=== PATIENT | male | born 1975 | race Caucasian/White ===

== ENCOUNTER 2016-07-04 14:10 | Inpatient (IN) | payer OTHER ==
[~2016-07-04] VITALS: Ht 180.3 cm; Wt 74.4 kg
[~2016-07-04 14:10] MED LIST: BACTROBAN2% TOP; VIBRAMYCIN 100100 MG PO
--- NOTE | 2016-07-04 14:29 | ED AMS/SEIZURE/WEAK/DIZZY ---
History of Present Illness General Chief Complaint: Seizure Stated Complaint: SEIZURE Source: patient Exam Limitations: confusion Vital Signs & Intake/Output Vital Signs & Intake/Output Vital Signs Date Time Temp Pulse Resp B/P Pulse O2 O2 Flow FiO2 Ox Delivery Rate 07/04 1709 101.3 07/04 1704 101.3 83 20 130/81 97 Room Air 07/04 1452 98 Room Air Room Air 07/04 1429 97.8 80 16 147/80 98 Room Air Room Air Allergies Coded Allergies: NO KNOWN ALLERGIES (02/20/15) Reconcile Medications Buspirone HCl 15 MG TABLET 1 TAB PO BID ANXIETY (Reported) Doxycycline (Vibramycin 100 MG Cap) 100 MG CAP 1 CAP PO BID cellulitis Escitalopram Oxalate 20 MG TABLET 1 TAB PO DAILY ANTIDEPRSANT (Reported) Gabapentin 300 MG CAPSULE 1 CAP PO TID NERVE PAIN (Reported) Methadone HCl 5 MG TABLET 140 MG PO D PAIN (Reported) Mupirocin (Bactroban) 2% OIN 1 BERT TOP TID cellulitis Triage Note: PT BIBA AFTER HAVING A SEIZURE. PT WAS WITH SIGNIFICANT OTHER WHEN IT HAPPENED. EMS STATES HE FELL BACKWARDS HITTING THE BACK OF HIS HEAD ON SHELF. PER SIG OTHER HE HAS HAD 3-4 PRIOR SEIZURES TODAY. PT HAS BEEN VOMITING FOR THE PAST COUPLE DAYS. PT HAS BRUISES IN DIFFERENT STAGES OF HEALING ON HIS RIGHT FLANK AND ARM AND ABRASIONS TO HIS LEFT FOREHEAD AND LEFT SIDE OF NECK. NO C-SPINE TENDERNESS. PT IS CURRENTLY A VERY POOR HISTORIAN, PER EMS SIG OTHER GAVE MOST TO ALL OF HX, BUT ARE UNSURE OF HIS BASELINE DUE TO PAST TBI. PT KNOWS WHERE HE IS, BUT THINKS IT IS OCTOB[place], WHEN ASKED ABOUT COMING UP HOLIDAY HE SAID OCTOBER AGAIN. PT SKIN WARM AND DRY. SINUS ON MONITOR AND AWAITNG PROVIDER EVAL. Triage Nurses Notes Reviewed? yes Onset: Abrupt Duration: better Timing: recent history Severity: moderate Severity Numbers: 5 HPI: Patient is a 40-year-old female with past medical history of anxiety depression mood disorder and seizures where he states that he is prescribed alprazolam for his seizures where he states that within the last 24 hours he had a seizure earlier this morning when he states that he fell and struck the left lateral aspect of his neck to the ground after waking up from seizure where he's had left lateral neck pain since patient also had a witnessed seizure by his brother and his private residence in which he struck his head to the ground resulting in a skin abrasion to his left forehead. History is limited due to patient presenting to be confused. Patient is alert and oriented however Denies any illicit drug use initially however he does state that 3 weeks ago he did smoke marijuana. Patient is compliant with his medications. Denies any alcohol use. Complaints of headache and neck pain Denies any bowel or bladder incontinence or tongue biting Denies any fever chills cough shortness of breath chest pain abdominal pain or low back pain (REESE MONTANEZ) Past History Medical History Any Pertinent Medical History? see below for history Neurological: SEIZURES Psychiatric: anxiety, CHRONIC PAIN Surgical History Surgical History: non-contributory Psychosocial History What is your primary language Divehi Family History Hx Contributory? No (REESE MONTANEZ) Review of Systems Review of Systems Constitutional: Reports: no symptoms. EENTM: Reports: no symptoms. Respiratory: Reports: no symptoms. Cardiovascular: Reports: no symptoms. GI: Reports: no symptoms. Genitourinary: Reports: no symptoms. Musculoskeletal: Reports: see HPI, neck pain. Skin: Reports: see HPI. Neurological/Psychological: Reports: see HPI. Hematologic/Endocrine: Reports: no symptoms. Immunologic/Allergic: Reports: no symptoms. All Other Systems: Reviewed and Negative (REESE MONTANEZ) Physical Exam Physical Exam General Appearance: no apparent distress, comfortable Head: evidence of injury Comments: Well-developed well-nourished person in no acute distress HEENT: Normal EENT exam, extraocular motion intact, no nystagmus. Pupils equally round and reactive to light and accommodation. Nose is atraumatic. External auditory canal and Tympanic membranes clear. Pharynx normal. No swelling or edema. Neck: Supple, no lymphadenopathy, normal range of motion without pain or tenderness Back: Nontender, no CVA tenderness. Cardiovascular: Regular rate and rhythms no murmurs rubs or gallops, normal JVP Respiratory: Chest nontender. No respiratory distress.breath sounds clear to auscultation bilaterally Abdomen: Soft, nontender nondistended, no appreciable organomegaly. Normal bowel sounds. No ascites Extremity: No edema, no calf tenderness to palpation, normal and equal pulses. Neuro: Alert oriented x3, motor sensory normal, cranial nerves II through XII grossly intact. Skin: No appreciable rash on exposed skin, skin is warm and dry. Psych: Mood and affect is normal, memory and judgment is normal. Diagram Body: 1) Noted 3 cm superficial skin abrasion 2) Noted superficial 4 cm skin abrasion Core Measures ACS in differential dx? No CVA/TIA Diagnosis: No Severe Sepsis Present: Yes BC x2: Yes Lactic Acid x2: Yes IV ABX Broad Spectrum: Yes NS/LR Started: Yes Septic Shock Present: No (ALE LOMBARDI,REESE) Progress Differential Diagnosis: arrythmia, alcohol intoxication, anemia, benign positional vertigo, CVA/stroke, dehydration, drug intoxication, encephalitis, electrolyte imbalance, GI bleed, hypoglycemia, hypoxia, intracranial Hem., intracranial mass/tumor, labrynthitis, meningitis, Meniere's disease, migraine SEN, multiple sclerosis, pneumonia, postural hypotension, presyncope, post- traumatic vertigo, sepsis, seizure disorder, subarachnoid Hem., UTI/pyelo, vertebrobasilar insuff Diagnostic Imaging: Viewed by Me: CT Scan, Ultrasound. Radiology Impression: no acute abnormality Initial ED EKG: SINUS RHYTHM NOTED 89 BPM WITH NOTED SUSPECTING u WAVE Prior EKG: changed Comments: PATIENT: REESE LEVINE PRESENT AGE: 40 PATIENT ACCOUNT NO: [id number] : 77 LOCATION: ER ORDERING PHYSICIAN: REESE LOMBARDI SERVICE DATE: 07/04/16 EXAM TYPE: RAD - XRY-PORTABLE CHEST XRAY EXAMINATION: XR PORTABLE CHEST CLINICAL INFORMATION: Elevated troponin. COMPARISON: Chest x-ray 08/03/2005. TECHNIQUE: Portable AP view of the chest was obtained. FINDINGS: The lung ayala are well expanded bilaterally. There is a 2 mm density projected over the posterior left ninth rib which is nonspecific. It may be a small foreign body over the chest; the patient has a history of concurrent trauma. The cardiac silhouette is normal. There are no pleural effusions or pneumothorax. The central pulmonary vasculature is normal. The hilar regions appear normal. There is a mild dextroscoliosis of the thoracic spine. IMPRESSION: 1. There are no acute cardiopulmonary findings. PATIENT: REESE LEVINE PRESENT AGE: 40 PATIENT ACCOUNT NO: [id number] : 77 LOCATION: ER ORDERING PHYSICIAN: REESE LOMBARDI SERVICE DATE: 07/04/16 EXAM TYPE: CAT - CT CERV SPINE WO IV CONTRAST; CT HEAD WO IV CONTRAST EXAMINATION: CT HEAD WITHOUT CONTRAST CT CERVICAL SPINE WITHOUT CONTRAST CLINICAL INFORMATION: Head strike. Neck pain. Fall. COMPARISON: CT head 10/26/2007 TECHNIQUE: Imaging was performed from the skull base to vertex without intravenous administration of contrast. In addition, helical noncontrast CT imaging was acquired through the cervical spine and source images were reviewed along with axial reconstructions and sagittal and coronal MPRs. DLP: 999.06 mGy-cm FINDINGS: HEAD: Focal encephalomalacia in the right frontal lobe with prior craniotomy the right frontal bone. This is stable since the CT head 10/26/2007. No intracranial mass, hemorrhage, or midline shift is visualized. The ventricles and sulci are age-appropriate. No extra-axial collections are identified. The paranasal sinuses and mastoid air cells are well aerated. CERVICAL SPINE: There is no evidence of acute cervical spine fracture. Vertebral bodies remain normal in height, intervertebral disc spaces are preserved, and alignment is anatomic. No pre- or paravertebral soft tissue abnormality is identified. Limited assessment of the lung apices is unremarkable. IMPRESSION: 1. No acute intracranial pathology. 2. No CT evidence of acute cervical spine fracture or traumatic subluxation DICTATED BY: OLIVIA KENDRICK MD DATE/TIME DICTATED:07/04/161543 BOILER OPERATOR:INGE DATE/TIME TRANSCRIBED:07/04/161543 PATIENT: REESE LEVINE PRESENT AGE: 40 PATIENT ACCOUNT NO: [id number] : 77 LOCATION: [facility] ORDERING PHYSICIAN: REESE LOMBARDI SERVICE DATE: 07/04/16 EXAM TYPE: US - US-LIMITED ABDOMEN EXAMINATION: US ABDOMEN LIMITED CLINICAL INFORMATION: Right upper quadrant pain. Elevated LFTs, bilirubin. COMPARISON: CT scan abdomen pelvis 04/30/2009 TECHNIQUE: Real-time imaging of the right upper quadrant abdominal viscera. Color Doppler exam utilized. FINDINGS: PANCREAS: Normal. LIVER: There is diffuse increased echogenicity of liver parenchyma consistent with fatty change. Right lobe of liver measures 18 cm superior inferior, mildly enlarged. No focal liver lesion. No intrahepatic bile duct dilatation. GALLBLADDER: Normal. The gallbladder is physiologically distended without evidence of stones, sludge, polyps, wall thickening or pericholecystic fluid. COMMON BILE DUCT: Normal in caliber measuring 0.6 cm in diameter. RIGHT KIDNEY: Normal. No hydronephrosis. No renal calculi or focal parenchymal lesions. The kidney measures 12.6 cm in maximum dimension. FREE FLUID: None. IMPRESSION: Diffuse fatty change of liver with mild hepatomegaly. No gallstone or bile duct dilatation. No acute change of gallbladder. (ALE LOMBARDI,REESE) Plan of Care: Orders Procedure Date/time Status Heart Healthy Diet 07/05 B Active CBC WITHOUT DIFFERENTIAL 07/05 0600 Active BASIC ELECTROLYTES PLUS BUN&CR 07/05 0600 Active LACTIC ACID 07/04 2029 Active Add-on Test (ER Only) 07/04 1845 Active Patient Data 07/04 1841 Active LACTIC ACID 07/04 1830 Active CREATINE PHOSPHOKINASE 07/04 1806 Active Saline Lock 07/04 1757 Active Pathway - chart 07/04 1757 Active House Staff 07/04 1757 Active Add-on Test (ER Only) 07/04 1752 Active AMMONIA 07/04 1752 Active Add-on Test (ER Only) 07/04 1736 Active BLOOD CULTURE 07/04 1736 Active Patient Data 07/04 1647 Active Add-on Test (ER Only) 07/04 1640 Active Add-on Test (ER Only) 07/04 1610 Active Add-on Test (ER Only) 07/04 1607 Active URINALYSIS 07/04 1605 Active PARTIAL THROMBOPLASTIN TIME 07/04 1450 Complete PROTHROMBIN TIME 07/04 1450 Complete LIPASE 07/04 1450 Complete LACTIC ACID 07/04 1450 Complete DIRECT BILIRUBIN 07/04 1450 Complete CREATINE PHOSPHOKINASE 07/04 1450 Complete AMYLASE 07/04 1450 Complete Telemetry/Beauty Shop Manager 07/04 1434 Active URINE DRUG SCREEN FOR ER ONLY 07/04 1434 Complete TROPONIN LEVEL 07/04 1434 Complete PROLACTIN 07/04 1434 Complete MAGNESIUM 07/04 1434 Complete ETHANOL 07/04 1434 Complete COMPREHENSIVE METABOLIC PANEL 07/04 1434 Complete CBC WITHOUT DIFFERENTIAL 07/04 1434 Complete EKG 07/04 1431 Active VTE Mechanical Prophylaxis 07/04 UNK Active Current Medications Sig/Libertad Start time Last Medication Dose Stop Time Status Admin Acyclovir 800 MG ONCE ONE 07/04 1845 UNVr (Zovirax) 07/04 1944 Dextrose/Water 250 ML (D5W) Midazolam HCl 2 MG ONCE ONE 07/04 1830 CANr (Versed) 07/04 1831 Sodium Chloride 1,000 ML BOLUS ONE 07/04 1830 AC (Normal Saline 0.9%) 07/04 1928 Lorazepam 50 MG ONCE ONE 07/04 1814 AC (Ativan Drip) 07/06 2013 Dextrose/Water 500 ML (D5W) Lorazepam 2 MG ONE ONE 07/04 1800 CAN (Ativan) 07/04 180 Midazolam HCl 1 MG ONCE ONE 07/04 1800 CAN (Versed) 07/04 180 Sodium Chloride 1,000 ML .[IV] 07/04 1800 AC (Normal Saline 0.9%) Vancomycin HCl 1,000 MG ONCE ONE 07/04 1800 AC Sodium Chloride 250 ML 07/04 1858 (Normal Saline 0.9%) Ampicillin Sodium/ 1,500 MG ONCE ONE 07/04 1730 CAN Sulbactam Sodium 07/04 175 (Unasyn) Sodium Chloride 100 ML (Normal Saline 0.9%) Laboratory Tests 07/04/16 1845: Ammonia Pending 07/04/16 1840: Lactic Acid Pending 07/04/16 1840: Creatine Kinase Pending 07/04/16 1605: Urine Opiates Screen < 100.00, Methadone Screen > 735 H, Barbiturate Screen < 60, Ur Phencyclidine Scrn 10.50, Amphetamines Screen < 100, U Benzodiazepines Scrn > 800 H, Urine Cocaine Screen < 50, Urine Cannabis Screen > 80.00 H, Urine Color YEL, Urine Clarity TURBD H, Urine pH 6.5, Ur Specific [place] 1.025 , Urine Protein 30 H, Urine Ketones >=80, Urine Nitrite NEG, Urine Bilirubin NEG@ICTO, Urine Urobilinogen 1.0, Ur Leukocyte Esterase NEG, Ur Microscopic SEDIMENT EXAMINED, Urine RBC Pending, Urine Hemoglobin MOD H, Urine Glucose NEG 07/04/16 1450: Anion Gap 20 H, Estimated GFR > 60, BUN/Creatinine Ratio 21.3, Glucose 117 H, Lactic Acid 3.1 H, Calcium 10.1, Magnesium 1.7, Total Bilirubin 1.9 H, Direct Bilirubin 0.8 H, AST 233 H, ALT 172 H, Alkaline Phosphatase 131 H, Creatine Kinase 2379 H, Troponin I 0.77 *H, Total Protein 7.9, Albumin 4.8, Globulin 3.1 , Albumin/Globulin Ratio 1.5, Amylase 234 H, Lipase 382 H, Prolactin 5.0, PT 11.1, INR 1.06, APTT 31, CBC w Diff NO MAN DIFF REQ, RBC 4.09 L, MCV 98.9 H, MCH 34.6 H, RDW 13.1, MPV 8.7, Gran % 92.2 H, Lymphocytes % 4.3 L, Monocytes % 3.4, Eosinophils % 0, Basophils % 0.1, Absolute Granulocytes 9.4 H, Absolute Lymphocytes 0.4 L, Absolute Monocytes 0.4, Absolute Eosinophils 0, Absolute Basophils 0, PUBS MCHC 35.0, Serum Alcohol < 10.0 Microbiology 07/04 1815 BLOOD: Blood Culture - RECD 07/04 1800 BLOOD: Blood Culture - RECD Patient currently is resting comfortably on the bed CT scan was unremarkable for ICH or fracture of his head and cervical spine. Patient has extremely poor historian however blood work does indicate a critical value of 0.77 troponin and which after CT scan was unremarkable for ICH the aspirin was administered. Patient also on the emergency room had a elevated temperature Noted by me by nursing staff were discussed patient with his girlfriend stating that he has been vomiting for the past 3 days and also patient is being prescribed methadone maintenance Which there is concern of patient being off his prescribed medications Discussed admission with Dr. Valdez who is aware of telemetry admission for concerns of troponin 07/04/2016 6:36:51 PM it was noted the patient did have a clonic seizure and which immediately oxygen supplementation was given, I also used Yankauer for mild secretion removal of his mouth patient was given 2 mg of IV Ativan and which then patient began to decrease in his mental status where he became agitated and more confused or 2 more milligrams of Ativan was administered patient then became more agitated in which a order 7 was called Versed was then administered 4 mg with mild improvement however patient still was again a harm to himself and others and agitated for more milligrams were administered with patient had improvement and is resting comfortably. monitor and storage bin tender has been in place prior to onset of symptoms. Bansal catheter was placed IV Ativan drip was then ordered Patient also spiked a fever in the emergency room was Tylenol was administered Patient does have concerns of meningitis which is of my differential however due to significant agitation and altered mental status that lumbar puncture was unsuccessful in the emergency room and interventional radiology was not available at this time. Patient will prophylactically be treated for meningitis. IV fluid resuscitation was administered for concerns of rhabdomyolysis THERE IS ALSO concern as well of alcohol withdrawal or methadone withdrawal Elliott Weinberg MD also was supervising during patient's post ictal and agitation episode (REEES MONTANEZ) Comments: 07/04/2016 6:32:08 PM I was called to see patient due to seizures. However upon my arrival to the room the patient was delirious and agitated. He required physical restraints and the application of soft collars to the upper extremities to prevent removal of devices. He has been medicated with a total of 8 mg of Versed and he is currently sedate and compliant with monitoring. He still responds however with generalized agitation to tactile stimuli. House staff and attending physician were at the bedside during the patient's episode. He has spiked a fever here in the emergency department. Differential diagnosis includes but is not restricted to benzodiazepine withdrawal, alcohol withdrawal (we have no reliable history of alcoholism) or PYTHON PROGRAMMER infections/encephalitis. Unfortunately attempting to perform an LP on this patient in his current state would be extremely dangerous. This will be reconsidered when the patient becomes more compliant with examination and testing. He will be provided however presumptive treatment for sepsis. (ROBERT MARQUEZ,ELLIOTT Jean Baptiste) ED Sepsis Exam Date of Focused Sepsis Exam: 07/04/16 Time of Focused Sepsis Exam: 1835 Sepsis Cardiac Exam: Tachycardia Sepsis Resp Exam: CTA Sepsis Cap Refill Exam: <2 Sec Sepsis Peripheral Pulse Exam: Normal Sepsis Peripheral Pulse Location: Dorsalis Pedis Sepsis Skin Color Exam: Flushed Skin Temp/Moisture Exam: Warm/Dry (REESE MONTANEZ) Departure Departure Disposition: STILL A PATIENT Condition: Critical Clinical Impression Primary Impression: Sepsis Secondary Impressions: EKG, abnormal, Elevated troponin, Fever, Rhabdomyolysis, Seizure, Transaminitis Referrals: PATIENT HAS NO PRIMARY CARE DR Departure Forms: Customer Survey General Discharge Information Admission Note Spoke With: LUIS ARMANDO GODWIN MD Documentation of Exam: Documentation of any treatments & extenuating circumstances including Concerns Regarding Discharge (functional status, medication knowledge or non-compliance, living conditions, etc.) that warrant an admission rather than observation: [ Discussed patient with Dr. Godwin who agrees with ICU admission for concerns of sepsis seizures and possible withdrawal or meningitis. Patient will require IV antibiotics IV fluid resuscitation benzodiazepine drip lumbar puncture repeat labs infectious disease consultation, cardiology consultation telemetry monitoring frequent neuro checks (REESE MONTANEZ) Critical Care Note Critical Care Note Critical Care Time: 75-104 min (REESE MONTANEZ)
--- NOTE | 2016-07-04 14:53 | NUR ---
PT BIBA AFTER HAVING A SEIZURE. PT WAS WITH SIGNIFICANT OTHER WHEN IT HAPPENED. EMS STATES HE FELL BACKWARDS HITTING THE BACK OF HIS HEAD ON SHELF. PER SIG OTHER HE HAS HAD 3-4 PRIOR SEIZURES TODAY. PT HAS BEEN VOMITING FOR THE PAST COUPLE DAYS. PT HAS BRUISES IN DIFFERENT STAGES OF HEALING ON HIS RIGHT FLANK AND ARM AND ABRASIONS TO HIS LEFT FOREHEAD AND LEFT SIDE OF NECK. NO C-SPINE TENDERNESS. PT IS CURRENTLY A VERY POOR HISTORIAN, PER EMS SIG OTHER GAVE MOST TO ALL OF HX, BUT ARE UNSURE OF HIS BASELINE DUE TO PAST TBI. PT KNOWS WHERE HE IS, BUT THINKS IT IS OCTOB[place], WHEN ASKED ABOUT COMING UP HOLIDAY HE SAID OCTOBER AGAIN. PT SKIN WARM AND DRY. SINUS ON MONITOR AND AWAITNG PROVIDER EVAL.
[2016-07-04 14:56] LABS: ABSOLUTE BASOPHIL COUNT 0 /CUMM (0.0-0.2); ABSOLUTE EOSINOPHIL COUNT 0 /CUMM (0.0-0.7); ABSOLUTE GRANULOCYTE CT 9.4 /CUMM (1.4-6.5); ABSOLUTE LYMPH COUNT 0.4 /CUMM (1.2-3.4); ABSOLUTE MONOCYTE COUNT 0.4 /CUMM (0.10-0.60); BASOPHIL % 0.1 % (0.0-2.0); EOSINOPHIL % 0 % (0-5); HEMATOCRIT 40.4 % (42-52); MEAN CORPUSCULAR HGB 34.6 PG (27.0-31.0); MEAN CORPUSCULAR VOLUME 98.9 FL (80.0-94.0); MEAN PLATELET VOLUME 8.7 FL (7.4-10.4); RBC DISTRIBUTION WIDTH 13.1 % (11.5-14.5); RED BLOOD CELL CT 4.09 /CUMM (4.70-6.10); WHITE BLOOD CELL COUNT 10.2 /CUMM (4.8-10.8)
[2016-07-04 15:12] LABS: GRANULOCYTE % 92.2 % (42.2-75.2); PLATELET COUNT 107 /CUMM (130-400)
--- NOTE | 2016-07-04 15:15 | NUR ---
PT REPORTS HIS BROTHER CALLED 911 AND THAT HIS SIGNIFICANT OTHER DID NOT KNOW HE WAS HERE
--- NOTE | 2016-07-04 15:35 | NUR ---
CRITICAL TEST RESULTS [id number] REESE LEVINE 40 M TESTS AND RESULTS: TROP 0.77 Results received and read back by: GIO GAMING Results received date and time: 07/04/16 1536 The following provider was notified of the results, and read the results back: REESE RODRIGUEZ Notified date and time: 07/04/16 at 1536
--- NOTE | 2016-07-04 15:38 | NUR ---
PT RETURNED FROM CT VERY UPSET THAT HIS WALLET WAS NOT IN ROOM PT AWARE THAT HIS GIRLFRIEND TOOK ALL OF HIS BELONGING WHEN THE AMBULANCE PICKED HIM UP
--- NOTE | 2016-07-04 15:54 | CT SCAN REPORT ---
EXAMINATION: CT HEAD WITHOUT CONTRAST CT CERVICAL SPINE WITHOUT CONTRAST CLINICAL INFORMATION: Head strike. Neck pain. Fall. COMPARISON: CT head 10/26/2007 TECHNIQUE: Imaging was performed from the skull base to vertex without intravenous administration of contrast. In addition, helical noncontrast CT imaging was acquired through the cervical spine and source images were reviewed along with axial reconstructions and sagittal and coronal MPRs. DLP: 999.06 mGy-cm FINDINGS: HEAD: Focal encephalomalacia in the right frontal lobe with prior craniotomy the right frontal bone. This is stable since the CT head 10/26/2007. No intracranial mass, hemorrhage, or midline shift is visualized. The ventricles and sulci are age-appropriate. No extra-axial collections are identified. The paranasal sinuses and mastoid air cells are well aerated. CERVICAL SPINE: There is no evidence of acute cervical spine fracture. Vertebral bodies remain normal in height, intervertebral disc spaces are preserved, and alignment is anatomic. No pre- or paravertebral soft tissue abnormality is identified. Limited assessment of the lung apices is unremarkable. IMPRESSION: 1. No acute intracranial pathology. 2. No CT evidence of acute cervical spine fracture or traumatic subluxation
--- NOTE | 2016-07-04 16:06 | NUR ---
ST. CATH URINE SENT PT HAS DARK MELISSA URINE
--- NOTE | 2016-07-04 16:15 | NUR ---
ASA 325 MG GIVEN PO AFTER CT RESULTS BACK
--- NOTE | 2016-07-04 16:25 | NUR ---
PT TO US
--- NOTE | 2016-07-04 16:33 | NUR ---
PT RETURNED FROM US STATES HE CAN'T WAIT TO GO HOME AND EAT PT HAS NO PHONE NUMBERS TO COLLECT HIS MED LIST
--- NOTE | 2016-07-04 16:37 | NUR ---
HOUSE STAFF IN ROOM FOR EVAL.
--- NOTE | 2016-07-04 16:46 | ULTRASOUND REPORT ---
EXAMINATION: US ABDOMEN LIMITED CLINICAL INFORMATION: Right upper quadrant pain. Elevated LFTs, bilirubin. COMPARISON: CT scan abdomen pelvis 04/30/2009 TECHNIQUE: Real-time imaging of the right upper quadrant abdominal viscera. Color Doppler exam utilized. FINDINGS: PANCREAS: Normal. LIVER: There is diffuse increased echogenicity of liver parenchyma consistent with fatty change. Right lobe of liver measures 18 cm superior inferior, mildly enlarged. No focal liver lesion. No intrahepatic bile duct dilatation. GALLBLADDER: Normal. The gallbladder is physiologically distended without evidence of stones, sludge, polyps, wall thickening or pericholecystic fluid. COMMON BILE DUCT: Normal in caliber measuring 0.6 cm in diameter. RIGHT KIDNEY: Normal. No hydronephrosis. No renal calculi or focal parenchymal lesions. The kidney measures 12.6 cm in maximum dimension. FREE FLUID: None. IMPRESSION: Diffuse fatty change of liver with mild hepatomegaly. No gallstone or bile duct dilatation. No acute change of gallbladder.
[2016-07-04] MEDS ORDERED: GABAPENTIN300 M2 PO (16:58)
[2016-07-04] MEDS ORDERED: BUSPIRONE HCL15 M1 PO (16:59)
[2016-07-04] MEDS ORDERED: ESCITALOPRAM OX20 MG PO (17:01)
[2016-07-04] MEDS ORDERED: METHADONE HCL5 MG PO (17:03)
--- NOTE | 2016-07-04 17:04 | NUR ---
PER GIRLFRIEND PT TOOK METHADONE AND THEN VOMITED GIRLFRIEND STATES PT HAS BEEN VOMITING FOR THE PAST 3 DAYS. PA MADE AWARE PT GIVEN APAP FOR FEVER
--- NOTE | 2016-07-04 17:09 | RADIOLOGY REPORT ---
EXAMINATION: XR PORTABLE CHEST CLINICAL INFORMATION: Elevated troponin. COMPARISON: Chest x-ray 08/03/2005. TECHNIQUE: Portable AP view of the chest was obtained. FINDINGS: The lung ayala are well expanded bilaterally. There is a 2 mm density projected over the posterior left ninth rib which is nonspecific. It may be a small foreign body over the chest; the patient has a history of concurrent trauma. The cardiac silhouette is normal. There are no pleural effusions or pneumothorax. The central pulmonary vasculature is normal. The hilar regions appear normal. There is a mild dextroscoliosis of the thoracic spine. IMPRESSION: 1. There are no acute cardiopulmonary findings.
[2016-07-04 17:12] LABS: PT 11.1 SEC (9.4-12.5); PTT 31 SEC (25-37)
--- NOTE | 2016-07-04 17:29 | NUR ---
CRITICAL TEST RESULTS [id number] ABNER,REESE Reyes TESTS AND RESULTS: LACTIC ACID 3.1 CALLED TO LASHONDA GRIFFITH Results received and read back by: GIO GAMING Results received date and time: 07/04/16 0873
--- NOTE | 2016-07-04 17:34 | History & Physical ---
RUBIA MARQUEZ,DANIEL 07/04/16 1733: General Information and HPI MD Statement: I have seen and personally examined REESE LEVINE and documented this H&P. The patient is a 40 year old M who presented with a patient stated chief complaint of [seizure]. Source of Information: EMS Exam Limitations: clinical condition, confusion History of Present Illness: Patient is a 40 YO M with PMH of anxiety, depression, mood disorder, seizures came to the ER with cheif concern of seizure this am. Patient is very confused in ER not able to answer any questions. By the time we went to ER he is very agitated pulling all the lines. We witnessed an episode of clonic seizure while entering room, he didnt have any bowel/bladder incontinence/tongue biting on nonrebreather mask. Unable to perform LP because of severe agitation. According to ER notes Patient was BIBA after the seizure with his significant other, per EMS he fell backwards during an episode of seizure witnessed by his brother in his private residentce. According to the person accompainying - he had several episodes during the day. For the past 3 days patient have been vomiting, unable to take any medications. He had bruises in different stages of healing on right flank, arm and abrasions on his left forehead/left side of neck. No tenderness in cervical spine region. Most of the history given by the significant other as patient is unable to provide history. Baseline of the patient is not clear due to past TBI. He is oriented to place intially, more altered later. Per girlfiend he took methadone today but vomited. when we arrived he is very agitated - 4mg ativan --> 4mg midazolam couldnt calm him down, so finally placed him on medical restraints with ativan drip. There is no contact information available about signficant other, we tried to reach his father for more history/other contact information which was not reachable. Allergies/Medications Allergies: Coded Allergies: NO KNOWN ALLERGIES (02/20/15) Home Med list Buspirone HCl 15 MG TABLET 1 TAB PO BID ANXIETY (Reported) Doxycycline (Vibramycin 100 MG Cap) 100 MG CAP 1 CAP PO BID cellulitis Escitalopram Oxalate 20 MG TABLET 1 TAB PO DAILY ANTIDEPRSANT (Reported) Gabapentin 300 MG CAPSULE 1 CAP PO TID NERVE PAIN (Reported) Methadone HCl 5 MG TABLET 140 MG PO D PAIN (Reported) Mupirocin (Bactroban) 2% OIN 1 BERT TOP TID cellulitis Compliance With Home Meds: POOR Past History Medical History Neurological: SEIZURES Psychiatric: anxiety, CHRONIC PAIN Surgical History Surgical History: non-contributory Past Family/Social History Psychosocial History Past Psychosocial History Unobtainable at this time Where do you live? Home Who Do You Live With? ?? significant other Services at Home: None Smoking Status: Unknown If Ever Smoked ETOH Use: unknown Illicit Drug Use: marijuana, marijuana 3 weeks ago Functional Ability ADLs Independent: dressing, eating, toileting, bathing. Ambulation: independent IADLs Independent: shopping, housework, finances, food prep, telephone, transportation , medication admin. Review of Systems Review of Systems Constitutional: Reports: see HPI. Comments Unobtainable as per the patient condition Exam & Diagnostic Data Last 24 Hrs of Vital Signs/I&O Vital Signs Date Time Temp Pulse Resp B/P Pulse O2 O2 Flow FiO2 Ox Delivery Rate 07/05 2007 101.3 101 22 129/82 95 Nasal 2.0L Cannula 07/04 1853 100 Nasal 2.0L Cannula 07/04 185 100.1 84 16 135/80 100 Nasal 2.0L Cannula 07/04 1709 101.3 07/04 170 101.3 83 20 130/81 97 Room Air 07/04 1452 98 Room Air Room Air 07/04 1429 97.8 80 16 147/80 98 Room Air Room Air Intake & Output 07/04 1600 07/04 0800 07/04 0000 Intake Total 0 Output Total Balance 0 Intake, Oral 0 Physical Exam General Appearance Alert, Severe Distress Skin bruising over the arms, left neck and right forehead. HEENT EOMI Neck Supple Cardiovascular Normal S1, Normal S2 Lungs Clear to Auscultation, Normal Air Movement Neurological unable to perform completely. Extremities No Clubbing, No Cyanosis, No Edema Vascular Normal Pulses, Pulses Symmetrical Body Front and Back (Adult) 1) evident erthematous bruise 2) Surperficial 4cm abrasion Last 24 Hrs of Labs/Jon: Laboratory Tests 07/04/16 1845: Ammonia 65 H 07/04/16 1840: Lactic Acid 4.4 H 07/04/16 1840: Creatine Kinase 5680 H, Troponin I 1.39 *H 07/04/16 1605: Urine Opiates Screen < 100.00, Methadone Screen > 735 H, Barbiturate Screen < 60, Ur Phencyclidine Scrn 10.50, Amphetamines Screen < 100, U Benzodiazepines Scrn > 800 H, Urine Cocaine Screen < 50, Urine Cannabis Screen > 80.00 H, Urine Color YEL, Urine Clarity TURBD H, Urine pH 6.5, Ur Specific [place] 1.025 , Urine Protein 30 H, Urine Ketones >=80, Urine Nitrite NEG, Urine Bilirubin NEG@ICTO, Urine Urobilinogen 1.0, Ur Leukocyte Esterase NEG, Ur Microscopic SEDIMENT EXAMINED, Urine RBC RARE, Urine WBC RARE, Urine Bacteria PACKD H, Urine Hemoglobin MOD H, Urine Glucose NEG 07/04/16 1450: Anion Gap 20 H, Estimated GFR > 60, BUN/Creatinine Ratio 21.3, Glucose 117 H, Lactic Acid 3.1 H, Calcium 10.1, Magnesium 1.7, Total Bilirubin 1.9 H, Direct Bilirubin 0.8 H, AST 233 H, ALT 172 H, Alkaline Phosphatase 131 H, Creatine Kinase 2379 H, Troponin I 0.77 *H, Total Protein 7.9, Albumin 4.8, Globulin 3.1 , Albumin/Globulin Ratio 1.5, Amylase 234 H, Lipase 382 H, Prolactin 5.0, PT 11.1, INR 1.06, APTT 31, CBC w Diff NO MAN DIFF REQ, RBC 4.09 L, MCV 98.9 H, MCH 34.6 H, RDW 13.1, MPV 8.7, Gran % 92.2 H, Lymphocytes % 4.3 L, Monocytes % 3.4, Eosinophils % 0, Basophils % 0.1, Absolute Granulocytes 9.4 H, Absolute Lymphocytes 0.4 L, Absolute Monocytes 0.4, Absolute Eosinophils 0, Absolute Basophils 0, PUBS MCHC 35.0, Serum Alcohol < 10.0 Microbiology 07/04 1815 BLOOD: Blood Culture - RECD 07/04 1800 BLOOD: Blood Culture - RECD Diagnostic Data EKG Results NSR, HR 89 CXR Results IMPRESSION: 1. There are no acute cardiopulmonary findings. Other Results abdominal ultrasound IMPRESSION: Diffuse fatty change of liver with mild hepatomegaly. No gallstone or bile duct dilatation. No acute change of gallbladder. CT head and cervical spine IMPRESSION: 1. No acute intracranial pathology. 2. No CT evidence of acute cervical spine fracture or traumatic subluxation Assessment/Plan Assessment: Patient is a 40 YO M with PMH significant for Anxiety, depression, possible opiate abuse (on methadone), ??TBI/Seizures (not on anticonvulsants) BIBA with presentation of seizures started today, nausea vomiting for the past 3days VS Tmax 101.3, HR 80, RR 18, BP 147/80mmHg, on 2L nasal cannula Significant labs include Sodium of 134, potassium of 3.2, cholride 89 Total bilirubin 1.9, Direct Bili of 0.8, AST/ALT 233/172, ALP 131 CK 2379 --> 5680 ; Lactic acid 3.1-->4.4 Ammonia 65 Troponin of 0.77--> 1.39 Amylast 382, lipase 234 Toxicology screen - Methadone 735, Urine Benzo >800, Urine cannabis >80, alcohol <10. UA is turbid with protein of 30, with WBC. PT 11, INR 1.06. Imaging as above Blood Cultures are sent Unable to perform LP after ruling out herniation with CT scan Plan Seizures secondary to withdrawl/Neurological infection with elevated lactic acid & NH3. Differentials * Given vomiting, not taking meds in the past few days - Benzo withdrawl could be first differential * Second is viral encephalitis/systemic viral infection given Fever, AMS, Seizures, vomiting, lactic acidosis. * Alcohol related withdrawl leading to seizures/alteration in LFT's * Ammonia elevated - metabolic encephalopathy after seizure event. I spoke with - informed to do LP after efforts to calm down. NO ANTIBIOTICS before LP In the ER antibiotics are administered as per the attending request with medical team approval (once informed stopped antibiotics) * Ativan drip for agitation * Await cultures * Hold haldol as it increases the risk * Neuro and ID are consulted * trend Lacitic acid * Bansal catheter Elevated troponins * Troponin 0.77-->1.39, Possibly demand informed form the ER * EKG shows T wave inversions in II, III, aVF * Serial EKG's and Trops X3 * Creatinine is normal - not a clearance problem Abnormal LFT's * Appears alcoholic picture with elevated amylase and lipase * repeat LFT's in am and see the trend * need to rule out meds vs infection vs early ischaemic picture Mental health * Patient had history of anxiety/depression - on alprazolam and escitalopram * ??TBI in the past with craniotomy evident in CT * History of seizures not on anticonvulsants * Sitter in place. DVT Prophylaxis * ALPS Code Status * Full Code As Ranked By This Provider Problem List: 1. Seizure 2. Fever 3. Elevated troponin Core Measures/Miscellaneous Acute Coronary Syndrome ACS Diagnosis: No Cerebrovascular Accident CVA/TIA Diagnosis: No Congestive Heart Failure CHF Diagnosis: No Venous Thromboembolism VTE Risk Factors: Immobility, paresis No Mech VTE prophylaxis d/t: No contraindications No VTE Pharm Prophylaxis d/t: No contraindications VTE Diagnosis: No VTE Type: NONE VTE Confirmed by (Test): NONE Severe Sepsis Severe Sepsis Present: No BC x2: Yes Lactic Acid x2: Yes IV ABX Broad Spectrum: Yes NS/LR Started: Yes Septic Shock Septic Shock Present: No Miscellaneous Documentation Attending Case Discussed With: LUIS ARMANDO ALEJANDRA MD Primary Care Physician: JIMI SALDIVAR MD Patient sees these Specialists unknown Level of Patient Care: Critical Care (CRI) MOLLY MILES 07/04/16 1751: Resident Review Statement Resident Statement: examined this patient, discussed with internal affairs commander, agreed with internal affairs commander Other Findings: is a 40 yo man with PMHx of anxiety, depression, mood disorder and seizures managed with alprazolam presented to ED by EMS for seizure He had 3 seizure earlier today, according to ED stuff: he fell and struck the left lateral aspect of his neck to the ground after waking up from seizure where he's had left lateral neck pain since patient also had a witnessed seizure by his brother and his private residence in which he struck his head to the ground resulting in a skin abrasion to his left forehead. When medical team arrived to assess the patient he was extremly agitated, hallucinated, couldn't be calmed by 4mg Ativan, and then another 4mg Midazolam failed to calm him down, medical attending, ED attending and nursing stuff at bedside to try to calm the patient, order #7 was then called, patient put in medical restraint, and started on IV Ativan drip. He had 4 episode of seizure at ED. We tried to contact patient's father (His number in the file, but we couldn't get in touch, we don't have the number of his girle friend, multiple attempt failed to contact father) Examination and labs as above Assessment: -Seizure which could be secondary to Alcohol withdrawal/ benzodiazepine withdrawal or infection (Such as meningitis/encephalitis): his urine toxicology is positive for methadone and benzo, negative for alcohol, only finding that goes with meningitis/encephalitis is AMS, fever. LP was consider but couldn't be attempt at ED bec. of sever agitation, after discussion with ED attending, medical attending the decision was made to start patient on antibiotic and antiviral emperically for meningitis/ encephalitis. Patient is started on Ativan drip for sever agitation and disposition changed to ICU. I contacted Neurologist regarding the possibility of infection and he has been informed of multiple seizure, he recommended to start the patient on Keppra loading dose, and then 500 mg BID, he also recommend to obtain LP tomorrow. -Positive troponin with EKG changes: second set of troponin is trending up: EKG shows nonspecific changes, will contine to trend troponin and EKG, Oncall bank examiner was contacted and he recommend to do serial troponin and also CPK as it's also elevated. -Rhabdomyalysis: CPK is elevated at 2379 and then 5680, will start him on IV fluid. -Lactic acidosis:which could be related to sepsis or seizure and muscle breakdown. will trend LA -Will start the patient on Morphine 2mg IV q12 as he was on Methadone, which obviously can't be given now. -NPO -Full code LUIS ARMANDO ALEJANDRA 07/04/16 1753: Attending MD Review Statement Attending Statement Attending MD Statement: examined this patient, discuss w/resident/PA/EVENT PLANNING INTERN, agreed w/resident/PA/EVENT PLANNING INTERN, discussed with family, reviewed EMR data (avail), discussed with nursing, discussed with case mgmt, reviewed images Attending Assessment/Plan: Patient not good historian, History obtained from ER records "40-year-old female with past medical history of anxiety, depression, mood disorder and seizures where he states that he is prescribed alprazolam for his seizures where he states that within the last 24 hours he had a seizure earlier this morning when he states that he fell and struck the left lateral aspect of his neck to the ground after waking up from seizure where he's had left lateral neck pain since patient also had a witnessed seizure by his brother and his private residence in which he struck his head to the ground resulting in a skin abrasion to his left forehead. History is limited due to patient presenting to be confused. Patient is alert and oriented however Denies any illicit drug use initially however he does state that 3 weeks ago he did smoke marijuana. Patient is compliant with his medications. Denies any alcohol use. Complaints of headache and neck pain Denies any bowel or bladder incontinence or tongue biting Denies any fever chills cough shortness of breath chest pain abdominal pain or low back pain" Physical exam: VITALS 101.3 General mild to moderate distress, confused HEENT no acute changes noted CVS S1 S2 present no acute changes. Chest B/l air entry present Neuro confused , no obvious focal deficit. not coperative Peripheral extremities pulses present. no peripheral edema. labs shows lactic acidosis, hypokalemia, hyponatrmeia, Cr 0.8, elevtaed LFTs, WBC 10, h/h wnl. trop 0.77 CT head negative for acute pathology. chest xray with no acute findings. EKG with sinus ryhtm LP pending ASSESSMENT 1. Fever with toxic metabolic encephalopathy. 2. Seizure 3. pyshcotic disorder 4. Lactic acidosis 5. Sepsis 2/2 encephalitis. 6. elevated troponin. PLAN 1. admit to inpatient medical services. 2. give IVF, empiric abx, obtain blood culture x 2 sets, trend lactic acid, check cpk. f/u LP. 3. consult ID and Neurology. 4. ativan prn for seizure. 5. check blood alcohol level. utox shows methadone+ 6. avoid haldol increases risk for seizure. 7. trend serial cardiac enzymes, denies chest pain. 8. gi/dvt prophyalxis 9. full code.
--- NOTE | 2016-07-04 18:00 | NUR ---
WHILE TRYING TO DRAWN BLOOD CULTURES PT BEGAN HAVING A SEIZURE MARIA C Hardwick CALLED TO ROOM PT GIVEN 2 ATIVAN IV PT CONT. TO FIGHT WITH STAFF AND TUG AT ALL OF HIS LINES PT GIVEN VERSED A TOTAL OF 8MG IV PT PULLED OUT BILAT IV'S PT PLACED IN SOFT RESTRAINTS BR[facility] PLACED 3RD LITER OF FLUID INFUSING PHARMACY CALLED FOR ATIVAN DRIP NEW IV ESTABLISHED
--- NOTE | 2016-07-04 18:27 | NUR ---
BLOOD CULTURES X2 AND AMMONIA SENT
--- NOTE | 2016-07-04 18:45 | NUR ---
BLOOD DRAWN SENT TO LAB BOTH SETS OF CULTURES DRAWN PT GIVEN ROCEPHIN VANCO INFUSING DIRECTED
--- NOTE | 2016-07-04 18:56 | NUR ---
PT HAS BRUISING TO RIGHT ARM AND BACK
--- NOTE | 2016-07-04 19:19 | NUR ---
REPEAT EKG DONE
--- NOTE | 2016-07-04 19:29 | NUR ---
CRITICAL TEST RESULTS [id number] REESE LEVINE 40 Eric TESTS AND RESULTS: LACTIC ACID 4.4 Results received and read back by: MARK SHERIDAN Results received date and time: 07/04/161928 The following provider was notified of the results, and read the results back: DR ALEXANDRA Notified date and time: 07/04/16 at 1937
--- NOTE | 2016-07-04 19:53 | NUR ---
PT BED ASSIGNMENT 111-1
--- NOTE | 2016-07-04 19:54 | NUR ---
CRITICAL TEST RESULTS [id number] REESE LEVINE 40 M TESTS AND RESULTS: TROP 1.39 Results received and read back by: MARK SHERIDAN Results received date and time: 07/04/161953 The following provider was notified of the results, and read the results back: DR ALEXANDRA Notified date and time: 07/04/16 at 1954
--- NOTE | 2016-07-04 20:40 | NUR ---
350 CC CONCENTRATED URINE OUTPUT FROM BR[facility] NO S/S OF SEIZURE ACTIVITY REPORT GIVEN TO VALERIE GILES
--- NOTE | 2016-07-04 21:42 | Event Note ---
Event Note Event Note: Discussed with Dr. Valdez over the phone and updated the status of EKG, which shows T-wave inversion in lead II,III, aVF and V2 and V3. His troponins are trending up .77, 1.39. He advised to trend Troponin [place] [address], discussed with Dr. Nowak, advised to give normal saline boluses -1000cc x 2, followed by 350 mL per hour. K was 2.9, we gave 2 boluses of 10mEq and f/b 40Meq over 12 hrs.
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
[2016-07-04 23:59] VITALS: BP 110/68
[2016-07-05] VITALS: BP 110/68
[2016-07-05 04:00] VITALS: BP 100/50
[2016-07-05 06:21] LABS: ABSOLUTE BASOPHIL COUNT 0 /CUMM (0.0-0.2); ABSOLUTE EOSINOPHIL COUNT 0 /CUMM (0.0-0.7); ABSOLUTE GRANULOCYTE CT 3.9 /CUMM (1.4-6.5); ABSOLUTE LYMPH COUNT 0.4 /CUMM (1.2-3.4); ABSOLUTE MONOCYTE COUNT 0.2 /CUMM (0.10-0.60); BASOPHIL % 0.2 % (0.0-2.0); EOSINOPHIL % 0.1 % (0-5); GRANULOCYTE % 87.4 % (42.2-75.2); MEAN CORPUSCULAR HGB 34.6 PG (27.0-31.0); MEAN CORPUSCULAR HGB CONC 34.3 G/DL (33.0-37.0); MEAN CORPUSCULAR VOLUME 100.8 FL (80.0-94.0); MEAN PLATELET VOLUME 8.9 FL (7.4-10.4); RBC DISTRIBUTION WIDTH 13.3 % (11.5-14.5); RED BLOOD CELL CT 3.46 /CUMM (4.70-6.10)
[2016-07-05 06:25] LABS: HEMATOCRIT 34.9 % (42-52); WHITE BLOOD CELL COUNT 4.4 /CUMM (4.8-10.8)
[2016-07-05 06:38] LABS: PLATELET COUNT 68 /CUMM (130-400)
--- NOTE | 2016-07-05 07:37 | NUR ---
AT 2105, PATIENT ARIIVED FROM ER ACCOMPANIED BY RN, SITTER AND TRANSPORT STAFF, TRANSFER TO ICU BED AND HOOKED UP TO BEDSIDE MONITOR. VITAL SIGNS TAKEN FOLLOWS TEMP. = 100.1 DG=069/80 MANUALLY, HB=267/77 AUTO CUFF, RR=22, D9ZOA=43%. PATIENT IS AGITATED, RESTLESS AND COMBATIVE AND DISORIENTED, TRYING TO GRAB STAFF NURSES AND OTHER PERSONEL. ORDER NUMBER 7 WAS CALLED UP TWICE. PATIENT OPEN EYES SPONTANEOUSLY, PERRLA 2MM , MOVES ALL THE EXTREMITIES, DOES NOT FOLLOW COMMAND, PLACED ON IRENA VEST AND SOFT RESTRAINTS TO THE FOUR EXTREMETIES. ON SINUS RHYTHM, HR IS RANGING FROM 80'S T0 90'S, BLOOD PRESSURE IS STABLE. ABDOMENIS SOFT, HAS GOOD BOWEL SOUNDS, LACTULOSE ENEMA WA GIVEN, PATIENT ABLE TO HAVE BOWEL MOVEMENT WITH YELLOWISH LIQUID STOOL IN LARGE AMOUNT. BLADDER IS NOT DISTENDED, HAS GOOD URINE OUTPUT VIA BRITT CATHETER AROUND 200 TO 300 CC/HR. SKIN IS INTACT HAD GOOD SKIN TURGOR BUT HAS MULTIPLE ABRASSION AND BRUISES FROM THE DIFFERENT PARTS OF THE BODY. TWO IV CANULA GAUGE 20 WAS INSERTED TO THE LEFT LATERAL HAND AND RIGHT LATERAL HAND. PATIENT WAS ENDORSED TO THE MORNING NURSE AT 0735.
[2016-07-05 08:00] VITALS: BP 101/64
--- NOTE | 2016-07-05 09:24 | PN- Resident CRCU ---
BRUNILDA MARQUEZ,[facility] 07/05/16 0924: Subjective HPI/CRCU Issues: Mr. Alexander was seen and examined this morning. He is resting comfortably in bed. He is alert and oriented 3 although somewhat somnolent. Patient is currently unsure about why he was brought to the hospital although expresses a lot of remorse for his actions. He can currently denies any chest pain or chest discomfort. He denies any fever, chills, nausea, vomiting. Objective Vital Signs & I&O Last 8 Hrs of Vitals and I&O: 96% on RA SAS 5-6 BP: Systolic: 98-142 Diastolic range 63-77 RR: 20-46 Heart rate 80-122 Temperature 99.5 to 100.1 Exam General Appearance: well developed/nourished, no apparent distress, alert, comfortable, Right frontal Scar Respiratory: normal breath sounds, chest non-tender, no respiratory distress Cardiovascular: regular rate/rhythm Gastrointestinal: normal bowel sounds, soft, non-tender Extremities: normal inspection, normal capillary refill Cranial Nerves: normal hearing, normal speech Current Medications: Current Medications Sig/Libertad Start time Last Medication Dose Route Stop Time Status Admin Acetaminophen 650 MG ONCE ONE 07/04 1715 DC 07/04 PO 07/04 1716 1709 Acetaminophen 0 .STK-MED ONE 07/04 1710 DC PO Acyclovir 800 MG Q8H 07/05 0300 CAN Dextrose/Water 250 ML IV Acyclovir 800 MG ONCE ONE 07/04 1845 DC 07/04 Dextrose/Water 250 ML IV 07/04 1944 2130 Ampicillin Sodium/ 0 .STK-MED ONE 07/04 1735 DC Sulbactam Sodium .ROUTE Ampicillin Sodium/ 1,500 MG ONCE ONE 07/04 1730 CAN Sulbactam Sodium IV 07/04 1759 Sodium Chloride 100 ML Aspirin 81 MG DAILY 07/05 1000 AC 07/05 PO 0854 Aspirin 0 .STK-MED ONE 07/04 1616 DC PO Aspirin 325 MG ONCE ONE 07/04 1615 DC 07/04 PO 07/04 1616 1614 Ceftriaxone Sodium 1,000 MG DAILY 07/05 1000 CAN IV Ceftriaxone Sodium 0 .STK-MED ONE 07/04 1836 DC .ROUTE Ceftriaxone Sodium 1,000 MG ONCE ONE 07/04 1800 DC 07/04 IV 07/04 1801 1858 Cyanocobalamin/ 1 BAG DAILY 07/05 1000 AC 07/05 Thiamine/Pyridoxine IV 0855 Sodium Chloride 1,000 ML Cyanocobalamin/ 1 BAG ONCE ONE 07/04 1845 DC 07/04 Thiamine/Pyridoxine IV 07/05 0244 2247 Sodium Chloride 1,000 ML Diphenhydramine HCl 50 MG ONCE ONE 07/04 1800 DC 07/04 IV 07/04 1801 1826 Diphenhydramine HCl 0 .STK-MED ONE 07/04 1757 DC .ROUTE Enoxaparin Sodium 40 MG DAILY 07/04 1852 DC SC Lactulose 1 BOT ONCE ONE 07/04 2130 DC 07/05 OR 07/04 2131 0044 Levetiracetam 500 MG Q12 07/05 1000 AC 07/05 N/A 1 UNIT IV 0854 Levetiracetam 500 MG Q12 07/04 2313 DC N/A 1 UNIT IV Levetiracetam 500 MG BID 07/04 2303 DC PO Levetiracetam 1,500 MG ONCE ONE 07/04 2245 DC 07/05 N/A 1 UNIT IV 07/04 2259 0045 Lidocaine 20 ML ONCE ONE 07/04 1800 DC ID 07/04 1801 Lorazepam 50 MG Q24H 07/04 2315 AC 07/05 Dextrose/Water 500 ML IV 0202 Lorazepam 2 MG ONE ONE 07/04 2245 DC 07/04 IV 07/04 2246 2245 Lorazepam 2 MG ONE ONE 07/04 2115 DC 07/04 IV 07/04 2116 2115 Lorazepam 50 MG ONCE ONE 07/04 1815 AC 07/04 Dextrose/Water 500 ML IV 07/06 2014 1900 Lorazepam 2 MG ONE ONE 07/04 1800 DC 07/04 IV 07/04 1801 1826 Lorazepam 2 MG ONE ONE 07/04 1800 DC 07/04 IV 07/04 1801 1800 Lorazepam 2 MG ONE ONE 07/04 1800 CAN IV 07/04 1801 Lorazepam 0 .STK-MED ONE 07/04 1751 DC .ROUTE Lorazepam 0 .STK-MED ONE 07/04 1742 DC .ROUTE Magnesium Sulfate 1 GM ONCE ONE 07/05 0245 DC 07/05 Dextrose/Water 100 ML IV 07/05 0644 0335 Midazolam HCl 2 MG ONCE ONE 07/04 1830 CAN IV 07/04 1831 Midazolam HCl 4 MG ONCE ONE 07/04 1830 DC 04/14 IV 07/04 1831 1826 Midazolam HCl 4 MG ONCE ONE 07/04 1815 DC 04/ IV 07/04 1816 1826 Midazolam HCl 1 MG ONCE ONE 07/04 1800 CAN IV 07/04 1801 Morphine Sulfate 2 MG Q12 07/05 1000 AC 07/05 IV 0854 Pantoprazole Sodium 40 MG DAILY 07/05 1000 AC 07/05 IV 0854 Potassium Chloride 10 MEQ ONCE ONE 07/05 0445 DC / IV 07/05 0446 0450 Potassium Chloride 10 MEQ ONCE ONE 07/05 0445 DC 04/15 IV 07/05 0446 0541 Potassium Chloride 40 MEQ Q13H 07/05 0245 AC 07/05 Sodium Chloride 1,000 ML IV 0427 Potassium Chloride 20 MEQ ONCE ONE 07/05 0245 CAN IV 07/05 0246 Potassium Chloride 10 MEQ ONCE ONE 07/04 2200 DC 07/05 IV 07/04 2201 0202 Potassium Chloride 10 MEQ ONCE ONE 07/04 2200 DC 07/05 IV 07/04 2201 0046 Sodium Chloride 1,000 ML Q5H 07/05 0915 AC 07/05 IV 0921 Sodium Chloride 1,000 ML BOLUS ONE 07/05 0430 DC 04/15 IV 07/05 0529 0455 Sodium Chloride 1,000 ML BOLUS ONE 07/05 0430 DC / IV 07/05 0529 0541 Sodium Chloride 1,000 ML Q6H 07/04 2130 DC 15 IV 0852 Sodium Chloride 1,000 ML Q13H 07/04 1945 DC IV Sodium Chloride 1,000 ML .Q10H 07/04 1845 DC IV Sodium Chloride 1,000 ML BOLUS ONE 07/04 1830 DC 04/14 IV 07/04 1929 1826 Sodium Chloride 1,000 ML BOLUS ONE 07/04 1830 DC 04/14 IV 07/04 1929 1915 Sodium Chloride 1,000 ML .[IV] 07/04 1800 DC IV Sodium Chloride 1,000 ML BOLUS ONE 07/04 1730 DC /14 IV 07/04 1829 1731 Sodium Chloride 1,000 ML BOLUS ONE 07/04 1715 DC / IV 07/04 1814 1709 Sodium Chloride 1,000 ML BOLUS ONE 07/04 1615 DC / IV 07/04 1714 1614 Vancomycin HCl 1,000 MG DAILY 07/05 1000 CAN Sodium Chloride 250 ML IV Vancomycin HCl 0 .STK-MED ONE 07/04 1836 DC .ROUTE Vancomycin HCl 1,000 MG ONCE ONE 07/04 1800 DC 07/04 Sodium Chloride 250 ML IV 07/04 1859 1859 Impression/Plan Impression/Problem List Impression: Patient is a 40 YO M with PMH significant for Anxiety, depression, possible opiate abuse (on methadone), ??TBI/Seizures (not on anticonvulsants) BIBA with presentation of seizures started, , nausea vomiting for the past 3days VS Tmax 101.3, HR 80, RR 18, BP 147/80mmHg, on 2L nasal cannula Significant labs include Sodium of 134, potassium of 3.2, cholride 89 Total bilirubin 1.9, Direct Bili of 0.8, AST/ALT 233/172, ALP 131 CK 2379 --> 5680 ; Lactic acid 3.1-->4.4 Ammonia 65 Troponin of 0.77--> 1.39--> Amylast 382, lipase 234 Toxicology screen - Methadone 735, Urine Benzo >800, Urine cannabis >80, alcohol <10. UA is turbid with protein of 30, with WBC. PT 11, INR 1.06. Blood Cultures are sent Plan Seizures secondary to withdrawl/Neurological infection with elevated lactic acid & NH3. Differentials * Given vomiting, not taking meds in the past few days - Benzo withdrawl could be first differential * Second is viral encephalitis/systemic viral infection given Fever, AMS, Seizures, vomiting, lactic acidosis. * Alcohol related withdrawal leading to seizures/alteration in LFT's * Ammonia elevated - metabolic encephalopathy after seizure event. Conversation with - informed to do LP after efforts to calm down. NO ANTIBIOTICS before LP In the ER antibiotics are administered as per the attending request with medical team approval (once informed stopped antibiotics) * Ativan drip for agitation: CIWA 17,12, 15,12,12,12,12 * Continue [facility] protocol. * Await cultures * Hold haldol as it increases the risk * Neuro and ID are consulted * Lacitic acid 2.9-->1.4 * Bansal catheter: Day one Elevated CPK with evidence of Rhabdomyolysis * Initial CPK done at the time of admission was 2379. Subsequently these have trended up to above 32,000 over the last 12 hours. We willl continue to aggressively hydrate the patient. Will repeat his CK in the a.m. Elevated troponins * Troponin 0.77-->1.39, Possibly demand informed form the ER * EKG shows T wave inversions in II, III, aVF * Serial EKG's and Troponins: 1.52-->0.92 * Creatinine is normal - not a clearance problem Abnormal LFT's * Appears alcoholic picture with elevated amylase and lipase * repeat LFT's in am and see the trend: LFT increasin and 141. INR: 1.06 * Repeat LFT in am. * need to rule out meds vs infection vs early ischaemic picture Mental health * Patient had history of anxiety/depression - on alprazolam and escitalopram * ??TBI in the past with craniotomy evident in CT * History of seizures on gabapentin for seizure prophylaxis. * Sitter in place. * Attempted to confirm the patient's home medications however his pharmacy [facility] was closed owing to the holiday. Will open on Thursday. Diet * Swallow Evaluation Obtained, currently NPO DVT Prophylaxis * ALPS Code Status * Full Code Problem List: 1. Rhabdomyolysis 2. Sepsis 3. EKG, abnormal 4. Fever 5. Transaminitis 6. Seizure 7. Elevated troponin Pain Ratin Tomorrow's Labs & Rationales: CBC ICU Bundle Plan DVT/Prophylaxis: mechanical, early ambulation low risk (ALPS) CHIP HAZEL MD 07/05/16 1736: Attending MD Review Statement Attending Sign Off Attending Cosign Statement: I have: examined this patient, reviewed [facility] EMR data, personally reviewd images, discussd w/resident/PA/FRUIT CHECKER, discussed mgmt plan w/pt, agreed w/resident/ PA/FRUIT CHECKER, amended to note. Other Findings: The patient was seen and discussed with resident. Appreciate Cardiology, Neuro input. Clinically improved today. No clinical evidence of meningitis. Agree with plan of care. Follow CK and renal function closely, trend troponins, continue IV hydration.
--- NOTE | 2016-07-05 12:54 | Cons- Neurology ---
General Information and HPI Consulting Request Date of Consult: 07/05/16 Requested By: LUIS ARMANDO ALEJANDRA MD History of Present Illness: 40-year-old male with history of TBI, seizures, anxiety, depression and prior substance abuse, currently maintained on methadone, brought to ER yesterday with confusion, several reported seizures and a witnessed seizure in hospital. He was initially febrile however has defervesced. Per chart, there was a several day history of reported nausea and diminished oral intake. He has dramatically improved overnight although, due to agitation, he is currently being maintained on an Ativan drip. He was loaded with Keppra and has had no further seizures. Allergies/Medications Allergies: Coded Allergies: NO KNOWN ALLERGIES (02/20/15) Home Med List: Buspirone HCl 15 MG TABLET 1 TAB PO BID ANXIETY (Reported) Doxycycline (Vibramycin 100 MG Cap) 100 MG CAP 1 CAP PO BID cellulitis Escitalopram Oxalate 20 MG TABLET 1 TAB PO DAILY ANTIDEPRSANT (Reported) Gabapentin 300 MG CAPSULE 1 CAP PO TID NERVE PAIN (Reported) Methadone HCl 5 MG TABLET 140 MG PO D PAIN (Reported) Mupirocin (Bactroban) 2% OIN 1 BERT TOP TID cellulitis Review of Systems Review of Systems: Limited due to his mental status Past History Travel History Traveled to [place] past 21 day No Medical History Neurological: SEIZURES TBI Psychiatric: anxiety, CHRONIC PAIN Surgical History Surgical History: non-contributory Psychosocial History Where Do You Live? Home Who Do You Live With? ?? significant other Services at Home: None Smoking Status: Unknown If Ever Smoked ETOH Use: unknown Illicit Drug Use: marijuana, marijuana 3 weeks ago Functional Ability ADLs Independent: dressing, eating, toileting, bathing. Ambulation: independent IADLs Independent: shopping, housework, finances, food prep, telephone, transportation , medication admin. Exam & Diagnostic Data Vital Signs and I&O Vital Signs Date Time Temp Pulse Resp B/P Pulse O2 O2 Flow FiO2 Ox Delivery Rate 07/05 0800 96 Room Air 07/05 0800 98.8 98 20 101/64 96 Room Air 07/05 0400 99.5 80 20 100/50 07/05 0400 98 Room Air 07/05 0000 99.8 88 37 110/68 07/05 0000 98 Room Air 07/04 2359 99.8 88 32 110/68 98 Room Air 07/04 2200 96 07/04 2130 96 Room Air 07/05 2007 101.3 101 22 129/82 95 Nasal 2.0L Cannula 07/04 1853 100 Nasal 2.0L Cannula 07/04 1852 100.1 84 16 135/80 100 Nasal 2.0L Cannula 07/04 1709 101.3 07/05 1703 101.3 83 20 130/81 97 Room Air 07/04 1452 98 Room Air Room Air 07/04 1429 97.8 80 16 147/80 98 Room Air Room Air Intake & Output 07/05 1600 07/05 0800 07/05 0000 Intake Total 6714 3423 Output Total 1974 1055 Balance 4739 2368 Intake, IV 6714 3423 Intake, Oral 0 Output, Urine 1974 1055 Patient 163 lb Weight Middle-aged male who was awake, alert and in no acute distress. He was disoriented to place and time however knew the name of the current President. Speech was fluent. There was no anomia. Pupils were equal and reactive. Extraocular movements were full. Face was symmetric. Hearing was grossly normal. Tongue was midline. There was no dysarthria. He was edentulous. The motor examination showed no focal or lateralizing weakness. Deep tendon reflexes were symmetric. Plantar responses were withdrawal. CT scan of the head on admission showed right frontal encephalomalacia with prior craniotomy. No acute abnormalities were noted. Liver function tests were elevated as well as amylase. Assessment/Plan Assessment: Mr. Alexander presents with a flurry of seizures in the setting of a known right frontal scar and only maintained on a weak anticonvulsant, i.e. gabapentin. Seizure, however, may have been triggered by inability to take his medication. His marked confusion and agitation which has significantly improved overnight reflects either post ictal confusion or withdrawal. However, he denies any recent ethanol use and benzodiazepines were present on his toxicology screen. Recommendations: From our neurological standpoint, we would maintain him on Keppra 500 mg twice a day going forward. He may also continue on his gabapentin which has weak anticonvulsant activity as well as action against neuropathic pain. An EEG should be obtained on Thursday. Tapering of his current sedation will be left to the ICU team. Please call if any questions. Consult Acknowledgment - Thank you for your consult request.
--- NOTE | 2016-07-05 14:37 | Cons- Cardiology ---
General Information and HPI Consulting Request Date of Consult: 07/05/16 Requested By: LUIS ARMANDO ALEJANDRA MD Reason for Consult: Elevated troponin Source of Information: old records Exam Limitations: confusion History of Present Illness: The patient is a 40-year-old male with a past medical history of depression, psychiatric issues, and seizures. The patient was brought to the emergency room after a reported seizure that morning. In the emergency room, the patient was noted to be quite confused and unable to respond appropriately to questions. He was also noted to be agitated at that time. In the emergency room, the patient had a witnessed seizure. On the admitting labs, the patient was noted to have an elevated troponin. Subsequently a CPK was admitted to the regimen and this was also noted to be significantly elevated. Otherwise, so far, there is no evidence of any acute cardiac event. Allergies/Medications Allergies: Coded Allergies: NO KNOWN ALLERGIES (02/20/15) Home Med List: Buspirone HCl 15 MG TABLET 1 TAB PO BID ANXIETY (Reported) Doxycycline (Vibramycin 100 MG Cap) 100 MG CAP 1 CAP PO BID cellulitis Escitalopram Oxalate 20 MG TABLET 1 TAB PO DAILY ANTIDEPRSANT (Reported) Gabapentin 300 MG CAPSULE 1 CAP PO TID NERVE PAIN (Reported) Methadone HCl 5 MG TABLET 140 MG PO D PAIN (Reported) Mupirocin (Bactroban) 2% OIN 1 BERT TOP TID cellulitis Current Medications: Current Medications Sig/Libertad Start time Last Medication Dose Route Stop Time Status Admin Acetaminophen 650 MG ONCE ONE 07/04 1715 DC 07/04 PO 07/04 171 1709 Acetaminophen 0 .STK-MED ONE 07/04 1710 DC PO Acyclovir 800 MG Q8H 07/05 0300 CAN Dextrose/Water 250 ML IV Acyclovir 800 MG ONCE ONE 07/04 1845 DC 07/04 Dextrose/Water 250 ML IV 07/04 1944 2130 Ampicillin Sodium/ 0 .STK-MED ONE 07/04 1735 DC Sulbactam Sodium .ROUTE Ampicillin Sodium/ 1,500 MG ONCE ONE 07/04 1730 CAN Sulbactam Sodium IV 07/04 1759 Sodium Chloride 100 ML Aspirin 81 MG DAILY 07/05 1000 AC 07/05 PO 0854 Aspirin 0 .STK-MED ONE 07/04 1616 DC PO Aspirin 325 MG ONCE ONE 07/04 1615 DC 07/04 PO 07/04 1616 1614 Ceftriaxone Sodium 1,000 MG DAILY 07/05 1000 CAN IV Ceftriaxone Sodium 0 .STK-MED ONE 07/04 1836 DC .ROUTE Ceftriaxone Sodium 1,000 MG ONCE ONE 07/04 1800 DC 07/04 IV 07/04 1801 1858 Cyanocobalamin/ 1 BAG DAILY 07/05 1000 AC 07/05 Thiamine/Pyridoxine IV 0855 Sodium Chloride 1,000 ML Cyanocobalamin/ 1 BAG ONCE ONE 07/04 1845 DC 07/04 Thiamine/Pyridoxine IV 07/05 0244 2247 Sodium Chloride 1,000 ML Diphenhydramine HCl 50 MG ONCE ONE 07/04 1800 DC 07/04 IV 07/04 1801 1826 Diphenhydramine HCl 0 .STK-MED ONE 07/04 1757 DC .ROUTE Enoxaparin Sodium 40 MG DAILY 07/04 1852 DC SC Lactulose 1 BOT ONCE ONE 07/04 2130 DC 07/05 KS 07/04 2131 0044 Levetiracetam 500 MG Q12 07/05 1000 AC 07/05 N/A 1 UNIT IV 0854 Levetiracetam 500 MG Q12 07/04 2313 DC N/A 1 UNIT IV Levetiracetam 500 MG BID 07/04 2303 DC PO Levetiracetam 1,500 MG ONCE ONE 07/04 2245 DC 07/05 N/A 1 UNIT IV 07/04 2259 0045 Lidocaine 20 ML ONCE ONE 07/04 1800 DC ID 07/04 1801 Lorazepam 100 MG Q8H 07/05 1100 AC 07/05 Dextrose/Water 1,000 ML IV 1041 Lorazepam 50 MG Q24H 07/04 2315 DC 07/05 Dextrose/Water 500 ML IV 07/05 1059 0202 Lorazepam 2 MG ONE ONE 07/04 2245 DC 07/04 IV 07/04 2246 2245 Lorazepam 2 MG ONE ONE 07/04 2115 DC 07/04 IV 07/04 2116 2115 Lorazepam 50 MG ONCE ONE 07/04 1815 AC 07/04 Dextrose/Water 500 ML IV 07/06 2014 1900 Lorazepam 2 MG ONE ONE 07/04 1800 DC 07/04 IV 07/04 1801 1826 Lorazepam 2 MG ONE ONE 07/04 1800 DC 07/04 IV 07/04 1801 1800 Lorazepam 2 MG ONE ONE 07/04 1800 CAN IV 07/04 1801 Lorazepam 0 .STK-MED ONE 07/04 1751 DC .ROUTE Lorazepam 0 .STK-MED ONE 07/04 1742 DC .ROUTE Magnesium Sulfate 1 GM ONCE ONE 07/05 0245 DC 07/05 Dextrose/Water 100 ML IV 07/05 0644 0335 Midazolam HCl 2 MG ONCE ONE 07/04 1830 CAN IV 07/04 1831 Midazolam HCl 4 MG ONCE ONE 07/04 1830 DC 07/04 IV 07/04 1831 1826 Midazolam HCl 4 MG ONCE ONE 07/04 1815 DC 07/04 IV 07/04 1816 1826 Midazolam HCl 1 MG ONCE ONE 07/04 1800 CAN IV 07/04 1801 Morphine Sulfate 2 MG Q12 07/05 1000 AC 07/05 IV 0854 Pantoprazole Sodium 40 MG DAILY 07/05 1000 AC 07/05 IV 0854 Potassium Chloride 10 MEQ Q1H 07/05 1330 DC 04 IV 07/05 1431 1330 Potassium Chloride 10 MEQ ONCE ONE 07/05 0445 DC 07/05 IV 07/05 0446 0450 Potassium Chloride 10 MEQ ONCE ONE 07/05 0445 DC 0415 IV 07/05 0446 0541 Potassium Chloride 40 MEQ Q13H 07/05 0245 AC 07/05 Sodium Chloride 1,000 ML IV 0427 Potassium Chloride 20 MEQ ONCE ONE 07/05 0245 CAN IV 07/05 0246 Potassium Chloride 10 MEQ ONCE ONE 07/04 2200 DC /15 IV 07/04 2201 0202 Potassium Chloride 10 MEQ ONCE ONE 07/04 2200 DC / IV 07/04 2201 0046 Sodium Chloride 1,000 ML Q5H 07/05 0915 AC 07/05 IV 1330 Sodium Chloride 1,000 ML BOLUS ONE 07/05 0430 DC 04/15 IV 07/05 0529 0455 Sodium Chloride 1,000 ML BOLUS ONE 07/05 0430 DC 04/15 IV 07/05 0529 0541 Sodium Chloride 1,000 ML Q6H 07/04 2130 DC 0415 IV 0852 Sodium Chloride 1,000 ML Q13H 07/04 1945 DC IV Sodium Chloride 1,000 ML .Q10H 07/04 1845 DC IV Sodium Chloride 1,000 ML BOLUS ONE 07/04 1830 DC 07/04 IV 07/04 1929 1826 Sodium Chloride 1,000 ML BOLUS ONE 07/04 1830 DC 07/04 IV 07/04 1929 1915 Sodium Chloride 1,000 ML .[IV] 07/04 1800 DC IV Sodium Chloride 1,000 ML BOLUS ONE 07/04 1730 DC 07/04 IV 07/04 1829 1731 Sodium Chloride 1,000 ML BOLUS ONE 07/04 1715 DC / IV 07/04 1814 1709 Sodium Chloride 1,000 ML BOLUS ONE 07/04 1615 DC 07/04 IV 07/04 1714 1614 Vancomycin HCl 1,000 MG DAILY 07/05 1000 CAN Sodium Chloride 250 ML IV Vancomycin HCl 0 .STK-MED ONE 07/04 1836 DC .ROUTE Vancomycin HCl 1,000 MG ONCE ONE 07/04 1800 DC 07/04 Sodium Chloride 250 ML IV 07/04 1859 1859 Past History Travel History Traveled to [facility] past 21 day No Medical History Neurological: SEIZURES TBI Psychiatric: anxiety, CHRONIC PAIN Surgical History Surgical History: non-contributory Psychosocial History Where Do You Live? Home Who Do You Live With? ?? significant other Services at Home: None Smoking Status: Unknown If Ever Smoked ETOH Use: unknown Illicit Drug Use: marijuana, marijuana 3 weeks ago Functional Ability ADLs Independent: dressing, eating, toileting, bathing. Ambulation: independent IADLs Independent: shopping, housework, finances, food prep, telephone, transportation , medication admin. Exam & Diagnostic Data Vital Signs and I&O Vital Signs Date Time Temp Pulse Resp B/P Pulse O2 O2 Flow FiO2 Ox Delivery Rate 07/05 0800 96 Room Air 07/05 0800 98.8 98 20 101/64 96 Room Air 07/05 0400 99.5 80 20 100/50 07/05 0400 98 Room Air 07/05 0000 99.8 88 37 110/68 07/05 0000 98 Room Air 07/04 2359 99.8 88 32 110/68 98 Room Air 07/04 2200 96 07/04 2130 96 Room Air 07/05 2007 101.3 101 22 129/82 95 Nasal 2.0L Cannula 07/04 185 100 Nasal 2.0L Cannula 07/04 1852 100.1 84 16 135/80 100 Nasal 2.0L Cannula 07/04 170 101.3 07/05 1703 101.3 83 20 130/81 97 Room Air 07/04 1452 98 Room Air Room Air Intake & Output 07/05 0000 07/04 0000 Intake Total 3400 6714 3423 0 Output Total 4649 1974 1055 Balance -1250 4739 2368 0 Intake, IV 3400 6714 3423 Intake, Oral 0 0 0 Number 2 Bowel Movements Output, Urine [id number] 1055 Patient 163 lb Weight Physical Exam: General Appearance Alert, confused Skin bruising over the arms, left neck and right forehead. HEENT EOMI Neck Supple, JVP normal, carotids normal bilaterally Cardiovascular Normal S1, Normal S2, no audible murmurs Lungs Clear to Auscultation and percussion bilaterally Neurological grossly nonfocal Extremities No Clubbing, No Cyanosis, No Edema Vascular Normal Pulses, Pulses Symmetrical Labs/Jon Results: Laboratory Tests 07/05 07/05 07/05 1127 0600 0020 Chemistry Sodium (137 - 145 mmol/L) 138 137 136 L Potassium (3.5 - 5.1 mmol/L) 3.2 L 3.4 L 2.9 *L Chloride (98 - 107 mmol/L) 105 105 103 Carbon Dioxide (22 - 30 mmol/L) 25 23 27 Anion Gap (5 - 16) 8 9 6 BUN (9 - 20 mg/dL) 5 L 7 L 10 Creatinine (0.7 - 1.2 mg/dL) 0.7 0.7 0.7 Estimated GFR (>60 ml/min) > 60 > 60 > 60 BUN/Creatinine Ratio (7 - 25 %) 7.1 Glucose (65 - 99 mg/dL) 74 72 Lactic Acid (0.7 - 2.1 mmol/L) 1.4 Calcium (8.4 - 10.2 mg/dL) 7.5 L 7.7 L Phosphorus (2.5 - 4.5 mg/dL) 1.7 L 1.4 L Magnesium (1.6 - 2.3 mg/dL) 2.0 1.5 L Total Bilirubin (0.2 - 1.3 mg/dL) 1.7 H 1.1 AST (17 - 59 U/L) 537 H 343 H ALT (21 - 72 U/L) 141 H 126 H Creatine Kinase (55 - 170 U/L) > 41936 H > 75956 H 79741 H Troponin I (<0.11 ng/ml) 0.92 *H 1.52 *H Albumin (3.5 - 5.0 g/dL) 2.9 L 2.9 L Hematology CBC w Diff NO MAN DIFF REQ WBC (4.8 - 10.8 /CUMM) 4.4 L RBC (4.70 - 6.10 /CUMM) 3.46 L Hgb (14.0 - 18.0 G/DL) 12.0 L Hct (42 - 52 %) 34.9 L MCV (80.0 - 94.0 FL) 100.8 H MCH (27.0 - 31.0 PG) 34.6 H RDW (11.5 - 14.5 %) 13.3 Plt Count (130 - 400 /CUMM) 68 L MPV (7.4 - 10.4 FL) 8.9 Gran % (42.2 - 75.2 %) 87.4 H Lymphocytes % (20.5 - 51.1 %) 8.8 L Monocytes % (1.7 - 9.3 %) 3.5 Eosinophils % (0 - 5 %) 0.1 Basophils % (0.0 - 2.0 %) 0.2 Absolute Granulocytes (1.4 - 6.5 /CUMM) 3.9 Absolute Lymphocytes (1.2 - 3.4 /CUMM) 0.4 L Absolute Monocytes (0.10 - 0.60 /CUMM) 0.2 Absolute Eosinophils (0.0 - 0.7 /CUMM) 0 Absolute Basophils (0.0 - 0.2 /CUMM) 0 PUBS MCHC (33.0 - 37.0 G/DL) 34.3 07/04 07/04 07/04 07/04 2200 1845 1840 1840 Chemistry Lactic Acid (0.7 - 2.1 mmol/L) 2.9 H 4.4 H Ammonia (9 - 30 umol/L) 65 H Creatine Kinase (55 - 170 U/L) 5680 H Troponin I (<0.11 ng/ml) 1.39 *H TSH (0.270 - 4.200 uIU/mL) 0.361 Free T4 (0.79 - 2.35 ng/dL) 0.93 Serology Hepatitis A IgM Ab (NONREACTIVE) NONREACTIVE Hep Bs Antigen (NONREACTIVE) NONREACTIVE Hep B Core IgM Ab Conf (NONREACTIVE) NONREACTIVE Hepatitis C Antibody (NONREACTIVE) NONREACTIVE HIV 1&2 Ab Western Blot (NONREACTIVE) NONREACTIVE 07/04 07/04 1605 1450 Chemistry Sodium (137 - 145 mmol/L) 134 L Potassium (3.5 - 5.1 mmol/L) 3.2 L Chloride (98 - 107 mmol/L) 89 L Carbon Dioxide (22 - 30 mmol/L) 26 Anion Gap (5 - 16) 20 H BUN (9 - 20 mg/dL) 17 Creatinine (0.7 - 1.2 mg/dL) 0.8 Estimated GFR (>60 ml/min) > 60 BUN/Creatinine Ratio (7 - 25 %) 21.3 Glucose (65 - 99 mg/dL) 117 H Lactic Acid (0.7 - 2.1 mmol/L) 3.1 H Calcium (8.4 - 10.2 mg/dL) 10.1 Magnesium (1.6 - 2.3 mg/dL) 1.7 Total Bilirubin (0.2 - 1.3 mg/dL) 1.9 H Direct Bilirubin (< 0.4 mg/dL) 0.8 H AST (17 - 59 U/L) 233 H ALT (21 - 72 U/L) 172 H Alkaline Phosphatase (< 127 U/L) 131 H Creatine Kinase (55 - 170 U/L) 2379 H Troponin I (<0.11 ng/ml) 0.77 *H Total Protein (6.3 - 8.2 g/dL) 7.9 Albumin (3.5 - 5.0 g/dL) 4.8 Globulin (1.9 - 4.2 gm/dL) 3.1 Albumin/Globulin Ratio (1.1 - 2.2 %) 1.5 Amylase (30 - 110 U/L) 234 H Lipase (23 - 300 U/L) 382 H Prolactin (3.7 - 17.9 ng/mL) 5.0 Coagulation PT (9.4 - 12.5 SEC) 11.1 INR (0.90 - 1.17) 1.06 APTT (25 - 37 SEC) 31 Hematology CBC w Diff NO MAN DIFF REQ WBC (4.8 - 10.8 /CUMM) 10.2 RBC (4.70 - 6.10 /CUMM) 4.09 L Hgb (14.0 - 18.0 G/DL) 14.1 Hct (42 - 52 %) 40.4 L MCV (80.0 - 94.0 FL) 98.9 H MCH (27.0 - 31.0 PG) 34.6 H RDW (11.5 - 14.5 %) 13.1 Plt Count (130 - 400 /CUMM) 107 L MPV (7.4 - 10.4 FL) 8.7 Gran % (42.2 - 75.2 %) 92.2 H Lymphocytes % (20.5 - 51.1 %) 4.3 L Monocytes % (1.7 - 9.3 %) 3.4 Eosinophils % (0 - 5 %) 0 Basophils % (0.0 - 2.0 %) 0.1 Absolute Granulocytes (1.4 - 6.5 /CUMM) 9.4 H Absolute Lymphocytes (1.2 - 3.4 /CUMM) 0.4 L Absolute Monocytes (0.10 - 0.60 /CUMM) 0.4 Absolute Eosinophils (0.0 - 0.7 /CUMM) 0 Absolute Basophils (0.0 - 0.2 /CUMM) 0 PUBS MCHC (33.0 - 37.0 G/DL) 35.0 Toxicology Urine Opiates Screen (>2000 NG/ML) < 100.00 Methadone Screen (>300 NG/ML) > 735 H Barbiturate Screen (>200 NG/ML) < 60 Ur Phencyclidine Scrn (>25 NG/ML) 10.50 Amphetamines Screen (>1000 NG/ML) < 100 U Benzodiazepines Scrn (>200 NG/ML) > 800 H Urine Cocaine Screen (>300 NG/ML) < 50 Urine Cannabis Screen (>50 NG/ML) > 80.00 H Serum Alcohol (<10 MG/DL) < 10.0 Urines Urine Color (YEL,AMB,STR) YEL Urine Clarity (CLEAR) TURBD H Urine pH (5.0 - 8.0) 6.5 Ur Specific [place] (1.001 - 1.035) 1.025 Urine Protein (NEG,<30 MG/DL) 30 H Urine Ketones (NEG) >=80 Urine Nitrite (NEG) NEG Urine Bilirubin (NEG) NEG@ICTO Urine Urobilinogen (0.1 - 1.0 EU/dl) 1.0 Ur Leukocyte Esterase (NEG) NEG Ur Microscopic SEDIMENT EXAMINED Urine RBC (0 - 5 /HPF) RARE Urine WBC (0 - 2 /HPF) RARE Urine Bacteria (NEG/NONE) PACKD H Urine Hemoglobin (NEG) MOD H Urine Glucose (N MG/DL) NEG 07/04 07/04 0630 0030 Chemistry Troponin I Cancelled Cancelled Diagnostic Data EKG Results Normal sinus rhythm CXR Results FINDINGS: The lung ayala are well expanded bilaterally. There is a 2 mm density projected over the posterior left ninth rib which is nonspecific. It may be a small foreign body over the chest; the patient has a history of concurrent trauma. The cardiac silhouette is normal. There are no pleural effusions or pneumothorax. The central pulmonary vasculature is normal. The hilar regions appear normal. There is a mild dextroscoliosis of the thoracic spine. IMPRESSION: 1. There are no acute cardiopulmonary findings. Assessment/Plan Assessment/Plan Assessment: 1. Elevated troponin 2. Elevated CPK with evidence of rhabdomyolysis 3. Seizures 4. Persistent confusion 5. Abnormal liver function tests. Recommendations: -Keep the patient on the alarm security or surveillance monitor -Serial troponins until decreasing -Maintain IV fluid hydration in view of markedly elevated CPK -Close monitoring of renal function -Echocardiogram to assess left ventricular function and wall motion -ECG tonight and again in the morning -At the moment, I do not see evidence of an acute cardiovascular event. I suspect the troponin elevation is related to the rhabdomyolysis. -Further plans in 24 hours. Consult Acknowledgment - Thank you for your consult request.
[2016-07-05 16:00] VITALS: BP 98/64
[2016-07-05 20:00] VITALS: BP 103/70
[2016-07-05 22:00] VITALS: BP 117/64
[2016-07-06] VITALS (14 sets, daily range): BP systolic 94–133; BP diastolic 54–81
[2016-07-06 05:01] LABS: ABSOLUTE BASOPHIL COUNT 0 /CUMM (0.0-0.2); ABSOLUTE EOSINOPHIL COUNT 0.1 /CUMM (0.0-0.7); ABSOLUTE GRANULOCYTE CT 2.9 /CUMM (1.4-6.5); ABSOLUTE LYMPH COUNT 1.4 /CUMM (1.2-3.4); ABSOLUTE MONOCYTE COUNT 0.6 /CUMM (0.10-0.60); BASOPHIL % 0.5 % (0.0-2.0); EOSINOPHIL % 1.4 % (0-5); GRANULOCYTE % 58.2 % (42.2-75.2); HEMATOCRIT 34.5 % (42-52); MEAN CORPUSCULAR HGB 34.8 PG (27.0-31.0); MEAN CORPUSCULAR HGB CONC 34.2 G/DL (33.0-37.0); MEAN CORPUSCULAR VOLUME 101.7 FL (80.0-94.0); MEAN PLATELET VOLUME 9.7 FL (7.4-10.4); PLATELET COUNT 75 /CUMM (130-400); RBC DISTRIBUTION WIDTH 13.6 % (11.5-14.5)
--- NOTE | 2016-07-06 07:42 | PN- Resident CRCU ---
See Addendum Subjective HPI/CRCU Issues: I saw and examined the patient this am. He reports no complaints overnight , however has been agitated since I saw him this morning. He is alert and oriented chest discomfort or difficulty breathing, denies abdominal pain, fever, chills. no overnight events reported 24 Hour Events: Laboratory Tests 07/06 07/06 0600 0315 Chemistry Sodium (137 - 145 mmol/L) 141 Potassium (3.5 - 5.1 mmol/L) 3.2 L Chloride (98 - 107 mmol/L) 109 H Carbon Dioxide (22 - 30 mmol/L) 21 L Anion Gap (5 - 16) 10 BUN (9 - 20 mg/dL) < 2 L Creatinine (0.7 - 1.2 mg/dL) 0.6 L Estimated GFR (>60 ml/min) > 60 Glucose (65 - 99 mg/dL) 87 Calcium (8.4 - 10.2 mg/dL) 8.0 L Phosphorus (2.5 - 4.5 mg/dL) 1.8 L Magnesium (1.6 - 2.3 mg/dL) 1.6 Total Bilirubin (0.2 - 1.3 mg/dL) Cancelled 0.9 Direct Bilirubin (< 0.4 mg/dL) Cancelled 0.4 AST (17 - 59 U/L) Cancelled 627 H ALT (21 - 72 U/L) Cancelled 158 H Alkaline Phosphatase (< 127 U/L) Cancelled 71 Total Protein (6.3 - 8.2 g/dL) Cancelled 5.5 L Albumin (3.5 - 5.0 g/dL) Cancelled 2.9 L Hematology CBC w Diff NO MAN DIFF REQ WBC (4.8 - 10.8 /CUMM) 5.0 RBC (4.70 - 6.10 /CUMM) 3.40 L Hgb (14.0 - 18.0 G/DL) 11.8 L Hct (42 - 52 %) 34.5 L MCV (80.0 - 94.0 FL) 101.7 H MCH (27.0 - 31.0 PG) 34.8 H RDW (11.5 - 14.5 %) 13.6 Plt Count (130 - 400 /CUMM) 75 L MPV (7.4 - 10.4 FL) 9.7 Gran % (42.2 - 75.2 %) 58.2 Lymphocytes % (20.5 - 51.1 %) 28.9 Monocytes % (1.7 - 9.3 %) 11.0 H Eosinophils % (0 - 5 %) 1.4 Basophils % (0.0 - 2.0 %) 0.5 Absolute Granulocytes (1.4 - 6.5 /CUMM) 2.9 Absolute Lymphocytes (1.2 - 3.4 /CUMM) 1.4 Absolute Monocytes (0.10 - 0.60 /CUMM) 0.6 Absolute Eosinophils (0.0 - 0.7 /CUMM) 0.1 Absolute Basophils (0.0 - 0.2 /CUMM) 0 PUBS MCHC (33.0 - 37.0 G/DL) 34.2 07/05 1127 Chemistry Sodium (137 - 145 mmol/L) 138 Potassium (3.5 - 5.1 mmol/L) 3.2 L Chloride (98 - 107 mmol/L) 105 Carbon Dioxide (22 - 30 mmol/L) 25 Anion Gap (5 - 16) 8 BUN (9 - 20 mg/dL) 5 L Creatinine (0.7 - 1.2 mg/dL) 0.7 Estimated GFR (>60 ml/min) > 60 BUN/Creatinine Ratio (7 - 25 %) 7.1 Creatine Kinase (55 - 170 U/L) > 63683 H Vital Signs Date Time Temp Pulse Resp B/P Pulse O2 O2 Flow FiO2 Ox Delivery Rate 07/06 0600 98.9 110 20 126/73 07/06 0400 99.9 80 20 103/75 07/06 0200 99.0 72 22 97/63 07/06 0000 97.6 80 20 105/62 07/06 0000 97.6 80 20 106/60 99 Room Air Room Air 07/05 2200 98.6 86 20 117/64 07/06 1999 98.0 84 24 103/70 07/06 1999 98 Room Air Room Air 07/05 1600 98.0 68 18 98/64 100 Room Air Intake & Output 07/06 1600 07/06 0800 07/06 0000 Intake Total 3402 4299 Output Total 2750 1600 Balance 652 2699 Intake, IV 3402 4239 Intake, Oral 0 60 Number 0 1 Bowel Movements Output, Urine 2750 1600 Objective Vital Signs & I&O Last 8 Hrs of Vitals and I&O: Max Temp 99.9 NE 72-110 BP 97/63 to 126/73 HR 72-110 RR 16-24, RA, 98-100% I 3402 O 2750 Exam General Appearance: well developed/nourished, awake, anxious, mild distress Head: atraumatic, normal appearance Ears, Nose, Throat: normal ENT inspection, there is an abrasion on the left side of the forehead Neck: normal inspection, supple, full range of motion Respiratory: chest non-tender, no respiratory distress Cardiovascular: regular rate/rhythm Gastrointestinal: normal bowel sounds, soft, non-tender Extremities: normal inspection, normal capillary refill Cranial Nerves: normal speech, PERRL Skin: warm/dry Back: normal inspection, normal range of motion Current Medications: Current Medications Sig/Libertad Start time Last Medication Dose Route Stop Time Status Admin Aspirin 81 MG DAILY 07/05 1000 AC 07/06 PO 0853 Cyanocobalamin/ 1 BAG DAILY 07/05 1000 AC 07/06 Thiamine/Pyridoxine IV 1122 Sodium Chloride 1,000 ML Gabapentin 300 MG TID 07/05 1600 AC 07/06 PO 1533 Levetiracetam 500 MG Q12 07/05 1000 AC 07/06 N/A 1 UNIT IV 0852 Lorazepam 2 MG ONE ONE 07/06 1730 DC 07/06 IV 07/06 1731 1730 Lorazepam 100 MG Q7H 07/05 2300 AC 07/06 Dextrose/Water 1,000 ML IV 1255 Lorazepam 100 MG Q8H 07/05 1100 DC 07/05 Dextrose/Water 1,000 ML IV 07/05 2259 2117 Lorazepam 50 MG ONCE ONE 07/04 1815 DC 07/04 Dextrose/Water 500 ML IV 07/06 2014 1900 Morphine Sulfate 2 MG Q12 07/05 1000 AC 07/06 IV 0854 Nicotine 14 MG DAILY 07/06 1103 07/06 TOP 1532 Pantoprazole Sodium 40 MG DAILY 07/05 1000 AC 07/06 IV 0854 Potassium Chloride 40 MEQ ONCE ONE 07/06 0600 DC PO 07/06 0601 Potassium Chloride 40 MEQ Q13H 07/05 0245 AC 07/06 Sodium Chloride 1,000 ML IV 0620 Potassium Phosphate 15 mMol ONE ONE 07/06 0600 DC 07/06 Sodium Chloride 250 ML IV 07/06 1003 1124 Sodium Chloride 1,000 ML Q5H 07/05 0915 AC 07/06 IV 1746 Impression/Plan Impression/Problem List Impression: Patient is a 40 YO M with PMH significant for Anxiety, depression, possible opiate abuse (on methadone), TBI/Seizures (not on anticonvulsants) BIBA with presentation of seizures started, , nausea vomiting for the past 3days Bansal day inserted on 07/05/15, day 3 Problem list ans plan: Seizures most likely gregoria to benzo/alcohol withdrawal. may also be secondary to encephalitis (viral or metabolic) given Fever, AMS, Seizures, vomiting, lactic acidosis. Ammonia elevated. Currently alert and awake reporting no headache, max temp 99.9. Lacitic acid 2.9-->1.4. In the ER antibiotics are administered as per the attending request with medical team approval (once informed stopped antibiotics) * On Ativan drip for agitation (CIWA scores have been 16-31 since this am) * Continue CIWA protocol * Await cultures * Hold haldol (QTC 532), may cause torsade de pointes * Neuro and ID are consulted Rhabdomyolysis Elevated CPK, initial CPK done at the time of admission was 2379 trended up to above 32,000. * continue IV fluids NaCl 200 ml/hour * Will repeat CK in am Elevated troponins Troponin 0.77-->1.39 --> 1.52-->0.92 (trending down) Initial EKG shows T wave inversions in II, III, aVF etiology most likely is demand ischemia no chest tightness, dizziness, palpitation, SOB * continue cardiac monitoring * continue fluid resuscitation Transaminitis ASL/ALT >2 , most likely alcoholic picture with elevated amylase and lipase * Repeat LFT in am. Mental health Patient had history of anxiety/depression TBI in the past with craniotomy evident in CT History of seizures on gabapentin for seizure prophylaxis. * He has a sitter, eliel and 4 extremity restraints * Based on records is on alprazolam, escitalopram and buspirone at home. Attempted to confirm the patient's home medications however his pharmacy [facility] was closed owing to the holiday. Will open on Thursday morning. Diet * Swallow Evaluation Obtained, currently NPO DVT Prophylaxis * ALPS Code Status * Full Code Problem List: 1. Rhabdomyolysis 2. Seizure 3. Transaminitis 4. Elevated troponin Pain Ratin Tomorrow's Labs & Rationales: CBC and ICU bundle (anemia, monitor for electrolytes) Plan DVT/Prophylaxis: mechanical, early ambulation low risk (ALPS)
--- NOTE | 2016-07-06 14:27 | PN- Cardiology ---
Subjective Subjective: Doing about the same. Remains confused and agitated. No obvious new symptoms or issues. Objective Vital Signs and I&Os Vital Signs Date Time Temp Pulse Resp B/P Pulse O2 O2 Flow FiO2 Ox Delivery Rate 07/06 0600 98.9 110 20 126/73 07/06 0400 99.9 80 20 103/75 07/06 0200 99.0 72 22 97/63 07/06 0000 97.6 80 20 105/62 07/06 0000 97.6 80 20 106/60 99 Room Air Room Air 07/05 2200 98.6 86 20 117/64 07/05 2000 98.0 84 24 103/70 07/05 2000 98 Room Air Room Air 07/05 1600 98.0 68 18 98/64 100 Room Air Intake & Output 07/06 1600 07/06 0800 07/06 0000 07/05 1600 07/05 0800 07/05 0000 Intake Total 3402 4299 3400 6714 3423 Output Total 2750 1600 4650 1975 1055 Balance 652 2699 -1250 4739 2368 Intake, IV 3402 4239 3400 6714 3423 Intake, Oral 0 60 0 0 Number 0 1 2 Bowel Movements Output, Urine 2750 1600 4650 1975 1055 Patient 163 lb Weight Current Medications: Current Medications Sig/Libertad Start time Last Medication Dose Route Stop Time Status Admin Aspirin 81 MG DAILY 07/05 1000 AC 07/06 PO 0853 Cyanocobalamin/ 1 BAG DAILY 07/05 1000 AC 07/06 Thiamine/Pyridoxine IV 1122 Sodium Chloride 1,000 ML Gabapentin 300 MG TID 07/05 1600 AC 07/06 PO 0853 Levetiracetam 500 MG Q12 07/05 1000 AC 07/06 N/A 1 UNIT IV 0852 Lorazepam 100 MG Q7H 07/05 2300 AC 07/06 Dextrose/Water 1,000 ML IV 0620 Lorazepam 100 MG Q8H 07/05 1100 DC 07/05 Dextrose/Water 1,000 ML IV 07/05 2258 2117 Lorazepam 50 MG ONCE ONE 07/04 1815 DC 07/04 Dextrose/Water 500 ML IV 07/06 2013 190 Morphine Sulfate 2 MG Q12 07/05 1000 AC 07/06 IV 0854 Nicotine 14 MG DAILY 07/06 1103 TOP Pantoprazole Sodium 40 MG DAILY 07/05 1000 AC 07/06 IV 0854 Potassium Chloride 40 MEQ ONCE ONE 07/06 0600 DC PO 07/06 0601 Potassium Chloride 10 MEQ Q1H 07/05 1330 DC 07/05 IV 07/05 1431 1508 Potassium Chloride 40 MEQ Q13H 07/05 0245 AC 07/06 Sodium Chloride 1,000 ML IV 0620 Potassium Phosphate 15 mMol ONE ONE 07/06 0600 DC 07/06 Sodium Chloride 250 ML IV 07/06 1003 1124 Sodium Chloride 1,000 ML Q5H 07/05 0915 AC 07/06 IV 1121 Results Last 48 Hrs of Labs/Mics: Laboratory Tests 07/06/16 0600: Total Bilirubin Cancelled, Direct Bilirubin Cancelled, AST Cancelled, ALT Cancelled, Alkaline Phosphatase Cancelled, Total Protein Cancelled, Albumin Cancelled 07/06/16 0315: Anion Gap 10, Estimated GFR > 60, Glucose 87, Calcium 8.0 L, Phosphorus 1.8 L, Magnesium 1.6, Total Bilirubin 0.9, Direct Bilirubin 0.4, AST 627 H, ALT 158 H , Alkaline Phosphatase 71, Creatine Kinase 61025 H, Troponin I 0.17 *H, Total Protein 5.5 L, Albumin 2.9 L, CBC w Diff NO MAN DIFF REQ, RBC 3.40 L, MCV 101.7 H, MCH 34.8 H, RDW 13.6, MPV 9.7, Gran % 58.2, Lymphocytes % 28.9, Monocytes % 11.0 H, Eosinophils % 1.4, Basophils % 0.5, Absolute Granulocytes 2.9, Absolute Lymphocytes 1.4, Absolute Monocytes 0.6, Absolute Eosinophils 0.1, Absolute Basophils 0, PUBS MCHC 34.2 07/05/16 1127: Anion Gap 8, Estimated GFR > 60, BUN/Creatinine Ratio 7.1, Creatine Kinase > 94768 H 07/05/16 0600: Anion Gap 9, Estimated GFR > 60, Glucose 74, Lactic Acid 1.4, Calcium 7.5 L, Phosphorus 1.7 L, Magnesium 2.0, Total Bilirubin 1.7 H, AST 537 H, ALT 141 H , Creatine Kinase > 91016 H, Troponin I 0.92 *H, Albumin 2.9 L, CBC w Diff NO MAN DIFF REQ, RBC 3.46 L, MCV 100.8 H, MCH 34.6 H, RDW 13.3, MPV 8.9, Gran % 87.4 H, Lymphocytes % 8.8 L, Monocytes % 3.5, Eosinophils % 0.1, Basophils % 0.2, Absolute Granulocytes 3.9, Absolute Lymphocytes 0.4 L, Absolute Monocytes 0.2, Absolute Eosinophils 0, Absolute Basophils 0, PUBS MCHC 34.3 07/05/16 0020: Anion Gap 6, Estimated GFR > 60, Glucose 72, Calcium 7.7 L, Phosphorus 1.4 L, Magnesium 1.5 L, Total Bilirubin 1.1, AST 343 H, ALT 126 H, Creatine Kinase 33245 H, Troponin I 1.52 *H, Albumin 2.9 L 07/04/16 2200: Lactic Acid 2.9 H 07/04/16 1845: Ammonia 65 H 07/04/16 1840: Lactic Acid 4.4 H 07/04/16 184: Creatine Kinase 5680 H, Troponin I 1.39 *H, TSH 0.361, Free T4 0.93, Hepatitis A IgM Ab NONREACTIVE, Hep Bs Antigen NONREACTIVE, Hep B Core IgM Ab Conf NONREACTIVE, Hepatitis C Antibody NONREACTIVE, HIV 1&2 Ab Western Blot NONREACTIVE 07/04/16 1605: Urine Opiates Screen < 100.00, Methadone Screen > 735 H, Barbiturate Screen < 60, Ur Phencyclidine Scrn 10.50, Amphetamines Screen < 100, U Benzodiazepines Scrn > 800 H, Urine Cocaine Screen < 50, Urine Cannabis Screen > 80.00 H, Urine Color YEL, Urine Clarity TURBD H, Urine pH 6.5, Ur Specific [place] 1.025 , Urine Protein 30 H, Urine Ketones >=80, Urine Nitrite NEG, Urine Bilirubin NEG@ICTO, Urine Urobilinogen 1.0, Ur Leukocyte Esterase NEG, Ur Microscopic SEDIMENT EXAMINED, Urine RBC RARE, Urine WBC RARE, Urine Bacteria PACKD H, Urine Hemoglobin MOD H, Urine Glucose NEG 07/04/16 1450: Anion Gap 20 H, Estimated GFR > 60, BUN/Creatinine Ratio 21.3, Glucose 117 H, Lactic Acid 3.1 H, Calcium 10.1, Magnesium 1.7, Total Bilirubin 1.9 H, Direct Bilirubin 0.8 H, AST 233 H, ALT 172 H, Alkaline Phosphatase 131 H, Creatine Kinase 2379 H, Troponin I 0.77 *H, Total Protein 7.9, Albumin 4.8, Globulin 3.1 , Albumin/Globulin Ratio 1.5, Amylase 234 H, Lipase 382 H, Prolactin 5.0, PT 11.1, INR 1.06, APTT 31, CBC w Diff NO MAN DIFF REQ, RBC 4.09 L, MCV 98.9 H, MCH 34.6 H, RDW 13.1, MPV 8.7, Gran % 92.2 H, Lymphocytes % 4.3 L, Monocytes % 3.4, Eosinophils % 0, Basophils % 0.1, Absolute Granulocytes 9.4 H, Absolute Lymphocytes 0.4 L, Absolute Monocytes 0.4, Absolute Eosinophils 0, Absolute Basophils 0, PUBS MCHC 35.0, Serum Alcohol < 10.0 Microbiology 07/05 0030 UPPER RESP: Surveillance Culture - COMP 07/05 29 GI: Surveillance Culture - COMP 07/04 1605 URINE ROUT: Urine Culture - COMP Assessment/Plan Assessment/Plan Assessment: 1. Elevated troponin 2. Elevated CPK with evidence of rhabdomyolysis 3. Seizures 4. Persistent confusion 5. Abnormal liver function tests. 6. Macrocytic anemia Recommendations: -Continue to monitor for now. -Await echocardiogram -Further plans after the echocardiogram -Continue to monitor labs as outlined -Check B12 / Folate Continue telemetry? Yes
[2016-07-07] VITALS (8 sets, daily range): BP systolic 95–138; BP diastolic 57–97
--- NOTE | 2016-07-07 02:30 | NUR ---
PT HAD INCREASING AGITATION. SECRUITY CALLED AND ASSISTED WITH INCONTINET CARE. PT RE-RESTRAINED AFTER CARE. PT AGITATED AND THRASHING. CIWA INCREASING INTO THE 30S. PT SWEATING AND HALLUCINATION. MDS AWARE
--- NOTE | 2016-07-07 05:00 | NUR ---
ATTEMPTED TO GIVE PT LIBRIUM FOR INCREASING AGITATION. PT CONCERNED ABOUT GETTING [facility]. ATTEMPTED TO REDIRECT AND EXPLAIN MD WILL BE CALLING. PT HALLUCINATING LESS BUT UNABLE TO FOCUS. PT REFUSING ALL MEDS SO HE LEAVE TO GO TO THE CLINIC. EXPLAINED THAT MD WILL CALL, PT REMAINS CONFUSED AND AGITATED
[2016-07-07 06:01] LABS: ABSOLUTE BASOPHIL COUNT 0 /CUMM (0.0-0.2); ABSOLUTE EOSINOPHIL COUNT 0.1 /CUMM (0.0-0.7); ABSOLUTE GRANULOCYTE CT 2.6 /CUMM (1.4-6.5); ABSOLUTE LYMPH COUNT 0.9 /CUMM (1.2-3.4); ABSOLUTE MONOCYTE COUNT 0.5 /CUMM (0.10-0.60); BASOPHIL % 0.3 % (0.0-2.0); EOSINOPHIL % 1.4 % (0-5); GRANULOCYTE % 63.4 % (42.2-75.2); HEMATOCRIT 34.2 % (42-52); MEAN CORPUSCULAR HGB 34.3 PG (27.0-31.0); MEAN CORPUSCULAR HGB CONC 34.2 G/DL (33.0-37.0); MEAN CORPUSCULAR VOLUME 100.5 FL (80.0-94.0); MEAN PLATELET VOLUME 8.8 FL (7.4-10.4); PLATELET COUNT 84 /CUMM (130-400); RBC DISTRIBUTION WIDTH 13.2 % (11.5-14.5); WHITE BLOOD CELL COUNT 4.1 /CUMM (4.8-10.8)
--- NOTE | 2016-07-07 06:58 | PN- Resident CRCU ---
Impression/Plan Plan DVT/Prophylaxis: mechanical, early ambulation low risk (ALPS) opiate abuse (on methadone), ??TBI/Seizures (not on anticonvulsants) BIBA with presentation of seizures started, , nausea vomiting for the past 3days VS Tmax 101.3, HR 80, RR 18, BP 147/80mmHg, on 2L nasal cannula Significant labs include Sodium of 134, potassium of 3.2, cholride 89 Total bilirubin 1.9, Direct Bili of 0.8, AST/ALT 233/172, ALP 131 CK 2379 --> 5680 ; Lactic acid 3.1-->4.4 Ammonia 65 Troponin of 0.77--> 1.39--> Amylast 382, lipase 234 Toxicology screen - Methadone 735, Urine Benzo >800, Urine cannabis >80, alcohol <10. UA is turbid with protein of 30, with WBC. PT 11, INR 1.06. Blood Cultures are sent Plan Seizures secondary to withdrawl/Neurological infection with elevated lactic acid & NH3. Differentials * Given vomiting, not taking meds in the past few days - Benzo withdrawl could be first differential * Second is viral encephalitis/systemic viral infection given Fever, AMS, Seizures, vomiting, lactic acidosis. * Alcohol related withdrawal leading to seizures/alteration in LFT's * Ammonia elevated - metabolic encephalopathy after seizure event. Conversation with - informed to do LP after efforts to calm down. NO ANTIBIOTICS before LP In the ER antibiotics are administered as per the attending request with medical team approval (once informed stopped antibiotics) * Ativan drip for agitation: [facility] 17,12, 15,12,12,12,12 * Continue [facility] protocol. * Await cultures * Hold haldol as it increases the risk * Neuro and ID are consulted * Lacitic acid 2.9-->1.4 * Bansal catheter: Day one Elevated CPK with evidence of Rhabdomyolysis * Initial CPK done at the time of admission was 2379. Subsequently these have trended up to above 32,000 over the last 12 hours. We willl continue to aggressively hydrate the patient. Will repeat his CK in the a.m. Elevated troponins * Troponin 0.77-->1.39, Possibly demand informed form the ER * EKG shows T wave inversions in II, III, aVF * Serial EKG's and Troponins: 1.52-->0.92 * Creatinine is normal - not a clearance problem Abnormal LFT's * Appears alcoholic picture with elevated amylase and lipase * repeat LFT's in am and see the trend: LFT increasin and 141. INR: 1.06 * Repeat LFT in am. * need to rule out meds vs infection vs early ischaemic picture Mental health * Patient had history of anxiety/depression - on alprazolam and escitalopram * ??TBI in the past with craniotomy evident in CT * History of seizures on gabapentin for seizure prophylaxis. * Sitter in place. * Attempted to confirm the patient's home medications however his pharmacy [facility] was closed owing to the holiday. Will open on Thursday morning. Diet * Swallow Evaluation Obtained, currently NPO DVT Prophylaxis * ALPS Code Status * Full Code Plan DVT/Prophylaxis: mechanical, early ambulation low risk (ALPS)
--- NOTE | 2016-07-07 09:35 | Cons- CRCU ---
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 Prior to admission the patient had 3 seizures. After being brought into the emergency department at [facility] subsequently had one witnessed seizure. Girlfriend of the patient (Gracy) states the patient has had decreased by mouth intake [employer]. He also has had multiple emetic episodes. These were heme positive. In March 2016 Mr. Alexander lost his father owing to a long-standing lung illness. Since that time the patient has been depressed and has likely been consuming a lot of alcohol. The patient drinks whiskey however the amount is unclear. The patient also is currently on methadone due to long-standing history of opioid Medication dependence due to history of heavy narcotic dependance prescribed due to his traumatic brain injury. The patient currently lives alone at home after both parents . His stepbrother Roel provided some of the information above and can be reached on [phone] At the time of admission, There was concern that the patient may have developed questionable encephalitis and a lumbar puncture was attempted at the emergency department however this was unsuccessful. He was started on IV ceftriaxone, vancomycin and acyclovir however did not reach therapeutic dose. At the time of admission the patient received a neurologic consult and was started on Keppra, with a loading dose. Allergies/Medications Allergies: Coded Allergies: NO KNOWN ALLERGIES (02/20/15) Home Med List: Buspirone HCl 15 MG TABLET 1 TAB PO BID ANXIETY (Reported) Doxycycline (Vibramycin 100 MG Cap) 100 MG CAP 1 CAP PO BID cellulitis Escitalopram Oxalate 20 MG TABLET 1 TAB PO DAILY ANTIDEPRSANT (Reported) Gabapentin 300 MG CAPSULE 1 CAP PO TID NERVE PAIN (Reported) Methadone HCl 5 MG TABLET 140 MG PO D PAIN (Reported) Mupirocin (Bactroban) 2% OIN 1 BERT TOP TID cellulitis Current Medications: Current Medications Sig/Libertad Start time Last Medication Dose Route Stop Time Status Admin Aspirin 81 MG DAILY 07/05 1000 AC 07/06 PO 0853 Chlordiazepoxide HCl 50 MG ONCE ONE 07/07 0445 DC PO 07/07 0446 Cyanocobalamin/ 1 BAG DAILY 07/05 1000 AC 07/07 Thiamine/Pyridoxine IV 0843 Sodium Chloride 1,000 ML Gabapentin 300 MG TID 07/05 1600 AC 07/06 PO 2249 Levetiracetam 500 MG Q12 07/05 1000 AC 07/07 N/A 1 UNIT IV 0843 Lorazepam 2 MG ONE ONE 07/06 1730 DC 07/06 IV 07/06 1731 1730 Lorazepam 100 MG Q7H 07/05 2300 AC 07/07 Dextrose/Water 1,000 ML IV 0444 Magnesium Sulfate 1 GM ONCE ONE 07/07 1100 AC 07/07 Dextrose/Water 100 ML IV 07/07 1459 1052 Methadone HCl 150 MG DAILY 07/07 1000 AC 07/07 PO 0821 Morphine Sulfate 2 MG Q12 07/05 1000 AC 07/07 IV 0856 Nicotine 14 MG DAILY 07/06 1103 AC 07/07 TOP 0856 Pantoprazole Sodium 40 MG DAILY 07/05 1000 AC 07/07 IV 0856 Potassium Chloride 40 MEQ ONCE ONE 07/07 0945 DC 07/07 PO 07/07 0946 1015 Potassium Chloride 40 MEQ Q13H 07/05 0245 AC 07/07 Sodium Chloride 1,000 ML IV 0034 Potassium Phosphate 15 mMol ONE ONE 07/07 1100 AC Sodium Chloride 250 ML IV 07/07 1503 Sodium Chloride 1,000 ML Q5H 07/05 0915 AC 07/07 IV 1052 Review of Systems Review of Systems Constitutional: Denies: chills (Limited due to Condition), diaphoresis, fever, malaise. EENTM: Reports: see HPI. Cardiovascular: Denies: chest pain, edema, orthopena, palpitations. Respiratory: Denies: cough, hemoptysis, orthopnea, short of breath. GI: Denies: abdominal pain, bloating, constipation, diarrhea, distention. Genitourinary: Denies: discharge, dysuria, frequency, hematuria. Musculoskeletal: Denies: back pain, gout, joint pain, joint swelling. Past History Travel History Traveled to [place] past 21 day No Medical History Neurological: SEIZURES TBI Psychiatric: anxiety, CHRONIC PAIN Surgical History Surgical History: non-contributory Psychosocial History Where Do You Live? Home Who Do You Live With? self Services at Home: None Smoking Status: Current Everyday Smoker (1 PPD) ETOH Use: heavy use Illicit Drug Use: marijuana, marijuana 3 weeks ago Functional Ability ADLs Independent: dressing, eating, toileting, bathing. Ambulation: independent IADLs Independent: shopping, housework, finances, food prep, telephone, transportation , medication admin. Employment History Employment: Disability Exam & Diagnostic Data Last 24 Hrs of Vital Signs/I&O Vital Signs Date Time Temp Pulse Resp B/P Pulse O2 O2 Flow FiO2 Ox Delivery Rate 07/07 0800 97.5 92 28 116/76 97 Room Air 07/07 0600 99.2 88 28 122/97 07/07 0400 99.2 100 28 138/87 07/07 0400 98 Room Air 07/07 0200 98.5 70 20 122/88 07/07 0000 98.5 76 22 122/92 07/07 0000 99 Room Air 07/07 0000 98.5 76 22 122/92 99 Room Air 07/06 2200 97.6 78 26 133/81 07/06 2000 97.6 78 22 94/56 07/06 2000 99 Room Air 07/06 1800 72 18 114/75 07/06 1700 66 20 116/62 07/06 1600 98.7 75 18 110/60 07/06 1600 98.7 75 18 110/60 99 Room Air 07/06 1400 70 20 110/64 07/06 1200 98.0 70 20 100/60 Intake & Output 07/07 1600 07/07 0800 07/07 0000 Intake Total 2984 4188 Output Total 390 4500 Balance 2594 -312 Intake, IV 2984 4188 Intake, Oral 0 Number 0 0 Bowel Movements Output, Urine 390 4500 Patient 74.354 kg Weight Physical Exam General Appearance: well developed/nourished, awake, anxious, mild distress, Head Scar present Head: atraumatic Respiratory: normal breath sounds, chest non-tender, no respiratory distress Cardiovascular: regular rate/rhythm, edema Gastrointestinal: normal bowel sounds, soft, non-tender, no organomegaly Back: normal inspection Extremities: normal inspection, normal capillary refill, no edema Neurologic/Psych: awake, disoriented x 3 Cranial Nerves: normal speech, PERRL Last 48 Hrs of Labs/Jon: Laboratory Tests 07/07/16 0530: Anion Gap 10, Estimated GFR > 60, Glucose 113 H, Calcium 8.3 L, Phosphorus 1.5 L, Magnesium 1.1 L, Total Bilirubin 0.8, AST 630 H, ALT 177 H, Creatine Kinase 18310 H, Albumin 3.0 L, Vitamin B12 960 H, Folate 10.6, CBC w Diff NO MAN DIFF REQ, RBC 3.40 L, MCV 100.5 H, MCH 34.3 H, RDW 13.2, MPV 8.8, Gran % 63.4, Lymphocytes % 22.4, Monocytes % 12.5 H, Eosinophils % 1.4, Basophils % 0.3, Absolute Granulocytes 2.6, Absolute Lymphocytes 0.9 L, Absolute Monocytes 0.5, Absolute Eosinophils 0.1, Absolute Basophils 0, PUBS MCHC 34.2 07/06/16 0600: Total Bilirubin Cancelled, Direct Bilirubin Cancelled, AST Cancelled, ALT Cancelled, Alkaline Phosphatase Cancelled, Total Protein Cancelled, Albumin Cancelled 07/06/16 0315: Anion Gap 10, Estimated GFR > 60, Glucose 87, Calcium 8.0 L, Phosphorus 1.8 L, Magnesium 1.6, Total Bilirubin 0.9, Direct Bilirubin 0.4, AST 627 H, ALT 158 H , Alkaline Phosphatase 71, Creatine Kinase 24843 H, Troponin I 0.17 *H, Total Protein 5.5 L, Albumin 2.9 L, CBC w Diff NO MAN DIFF REQ, RBC 3.40 L, MCV 101.7 H, MCH 34.8 H, RDW 13.6, MPV 9.7, Gran % 58.2, Lymphocytes % 28.9, Monocytes % 11.0 H, Eosinophils % 1.4, Basophils % 0.5, Absolute Granulocytes 2.9, Absolute Lymphocytes 1.4, Absolute Monocytes 0.6, Absolute Eosinophils 0.1, Absolute Basophils 0, PUBS MCHC 34.2 Diagnostic Data Other Results EXAMINATION: US RETROPERITONEAL COMPLETE (RENAL) COMPARISON: CT 04/30/2009. Ultrasound for 2016. TECHNIQUE: Real-time imaging of the kidneys and bladder. FINDINGS: RIGHT KIDNEY: 12.6 x 3.4 x 4.5 cm (SAG x AP x TRV). The kidney is normal in size, contour, and echogenicity. Renal cortical thickness is normal. No calculi or focal parenchymal lesions. No hydronephrosis. LEFT KIDNEY: 12.7 x 5.6 x 4.5 cm (SAG x AP x TRV). The kidney is normal in size, contour, and echogenicity. Renal cortical thickness is normal. No calculi or focal parenchymal lesions. There is moderate to severe hydronephrosis. BLADDER: Decompressed with a Bansal catheter in place. IMPRESSION: Moderate to severe left-sided hydronephrosis. Unremarkable appearance of the right kidney.. DICTATED BY: DAVID MARQUEZ,JASMIN Assessment/Plan Impression/Plan: Mr Alexander is a 40 year old male with PMH of traumatic brain injury requiring emergent surgical de compression at [facility] approximately 15 years ago, anxiety, depression, mood disorder and seizures came to the ER after experiencing a seizure on the morning of 07/04/2016. On the morning of 07/07/2016, the patient is alert and disoriented. He is able to follow motor and verbal commands. He is unable to elicit much history claiming that he is at his friend's house and shortly has to go back home. He reports that his father would soon come and pick him up. Although he states he is hungry he says he does not want to eat and will wait till he gets home to eat. Patient states that he is currently not in any pain. He denies any fever, chills, nausea, vomiting. Ovenight patient was agitated and thrashing. CIWA into the 30's. Patient confused and agitated till early this am. Respiratory He is currently saturating well on 97%. Continue to monitor and maintain saturations above 95%. Infectious Patient has been afebrile over the last 48 hours hence the differential and workup behind encephalitis has been deferred. WBC 4.1. Cardiovascular At time of admission the patient did have an elevation of his troponin, 0.77--> 1.39 --> 1.52-->0.92-->0.17 Initial EKG showed T wave inversions in II, III, aVF. Repeat EKG's have been WNL. Cardiology consult has been obtained. EKG changes to demand ischemia. An echocardiogram has been ordered. Results are pending. Alimentry Patient currently nothing by mouth. Bed side swallow evaluation done on the early evening of 07/07/2016, elicited no abnormalities. The patient was therefore started on a diet. A formal swallow evaluation has been obtained althouth the patient will likely need to me medically stabilized prior to a resuming a formal diet. Metabolic Initial CPK done at the time of admission was 2379 trended up to above 32,000. [place] [address]. We'll continue aggressive IV hydration until levels reach normal physiological values. Will repeat CK in am. Monitor BEP, sinc CK> 5000, patient might have DAVID. Renal Ultrasound, bedside ordered. Tailor UOP approx 3 mL/kg. Target: 225 ml/hr. Monitor K and Ca frequently. Neurology Patient was started on IV Kepra after a neurology consult was obtained. On 07/05 his gabapentin was also resumed owing to mild anti seizure action. Currently has a sitter in place. Patient continues to be agitated overnight. The patient does follow-up with methadone clinic. Their phone number is . I spoke with them this morning and confirmed the patient's methadone dose of 150 mg daily. He receives these on a one-time window dose followed by 6 doses for the rest of the week. EEG Has been ordered for 07/07/2016 Diet Currently NPO DVT Prophylaxis ALPS Code Status Full Code Consult Acknowledgment - Thank you for your consult request. Kang ARMAS MD 07/07/16 1014: General Information and HPI Consulting Request Date of Consult: 07/07/16 Requested By: Dr. Nowak Reason for Consult: EtOH withdrawal, CRCU management. Source of Information: old records Exam Limitations: unable to give history, not alert/orientated, clinical condition Assessment/Plan Other Findings/Comments: I have personally seen and examined the patient, and agree with the resident's assessment and plan as detailed above. The patient is a 40-year-old male with a history significant for anxiety, depression, possible opiate abuse (on methadone ), possible TBI, and history of seizures. The patient was admitted on 2016 with complaints of as yet and vomiting for 3 days prior to admission. The patient was evaluated and thought to have alcohol-related withdrawal leading to seizures. Because of the patient's acute mental status change, seizures and fever encephalitis was considered, including the possibility of an LP. Because the patient's clinical condition appeared to be more consistent with EtOH withdrawal, and LP was deferred. The patient also was found to have an elevated CPK with rhabdomyolysis, treated with aggressive IV fluid rehydration. His troponin was positive, thought to be related to demand ischemia. The patient's LFTs were elevated, consistent with EtOH hepatitis. The patient is currently arousable and intermittently agitated. Security was called overnight due to the patient's agitation and the need to change his bed sheets. He is currently on 22 mg of Ativan per hour. He is receiving methadone to ensure no evidence of opiate withdrawal. He is on IV Keppra for withdrawal seizures. He remains on multivitamin, thiamine and folate. Today, we will replete the patient's electrolytes including magnesium, phosphorus and potassium, and as necessary. We will continue to monitor CIWA scores and attempt to wean his drip down. We will continue to follow the patient's CPK closely. He will continue with aggressive volume resuscitation for rhabdomyolysis. We will check a renal ultrasound at the bedside. I have discussed the plan of care with the housestaff and asked him to contact me should the patient's condition change or deteriorate. Consult Acknowledgment - Thank you for your consult request.
--- NOTE | 2016-07-07 12:09 | PN- Cardiology ---
Subjective Subjective: The patient remains confused, intermittently agitated. No chest pain. No shortness of breath. No palpitations. Objective Vital Signs and I&Os Vital Signs Date Time Temp Pulse Resp B/P Pulse O2 O2 Flow FiO2 Ox Delivery Rate 07/07 0800 97.5 92 28 116/76 97 Room Air 07/07 0600 99.2 88 28 122/97 07/07 0400 99.2 100 28 138/87 07/07 0400 98 Room Air 07/07 0200 98.5 70 20 122/88 07/07 0000 98.5 76 22 122/92 07/07 0000 99 Room Air 07/07 0000 98.5 76 22 122/92 99 Room Air 07/06 2200 97.6 78 26 133/81 07/07 1999 97.6 78 22 94/56 07/06 2000 99 Room Air 07/06 1800 72 18 114/75 07/06 1700 66 20 116/62 07/06 1600 98.7 75 18 110/60 07/06 1600 98.7 75 18 110/60 99 Room Air 07/06 1400 70 20 110/64 Intake & Output 07/07 1600 07/07 0800 07/07 0000 07/06 1600 07/06 0800 07/06 0000 Intake Total 2984 4188 4323 3402 4299 Output Total 390 4500 4500 2750 1600 Balance 2594 -312 -650 859 5435 Intake, IV 2984 4188 4323 3402 4239 Intake, Oral 0 0 0 60 Number 0 0 0 0 1 Bowel Movements Output, Urine 390 4500 4500 2750 1600 Patient 164 lb Weight Physical Exam: Gen: NAD HEENT: normal Lungs: clear to auscultation, normal resp. effort Heart: RRR, S1, S2, no murmurs Abdomen: Soft, nontender, no masses Extremities: No clubbing, cyanosis, or edema. Neuro: Alert and oriented x 3, cranial nerves intact Current Medications: Current Medications Sig/Libertad Start time Last Medication Dose Route Stop Time Status Admin Aspirin 81 MG DAILY 07/05 1000 AC 07/06 PO 0853 Chlordiazepoxide HCl 50 MG ONCE ONE 07/07 0445 DC PO 07/07 0446 Cyanocobalamin/ 1 BAG DAILY 07/05 1000 AC 07/07 Thiamine/Pyridoxine IV 0843 Sodium Chloride 1,000 ML Gabapentin 300 MG TID 07/05 1600 AC 07/06 PO 2249 Levetiracetam 500 MG Q12 07/05 1000 AC 07/07 N/A 1 UNIT IV 0843 Lorazepam 2 MG ONE ONE 07/06 1730 DC 07/06 IV 07/06 1731 1730 Lorazepam 100 MG Q7H 07/05 2300 AC 07/07 Dextrose/Water 1,000 ML IV 0444 Magnesium Sulfate 1 GM ONCE ONE 07/07 1100 AC 07/07 Dextrose/Water 100 ML IV 07/07 1459 1052 Methadone HCl 150 MG DAILY 07/07 1000 AC 07/07 PO 0821 Morphine Sulfate 2 MG Q12 07/05 1000 AC 07/07 IV 0856 Nicotine 14 MG DAILY 07/06 1103 AC 07/07 TOP 0856 Pantoprazole Sodium 40 MG DAILY 07/05 1000 AC 07/07 IV 0856 Potassium Chloride 40 MEQ ONCE ONE 07/07 0945 DC 07/07 PO 07/07 0946 1015 Potassium Chloride 40 MEQ Q13H 07/05 0245 AC 07/07 Sodium Chloride 1,000 ML IV 0034 Potassium Phosphate 15 mMol ONE ONE 07/07 1100 AC Sodium Chloride 250 ML IV 07/07 1503 Sodium Chloride 1,000 ML Q5H 07/05 0915 AC 07/07 IV 1052 Results Last 48 Hrs of Labs/Mics: Laboratory Tests 07/07/16 0530: Anion Gap 10, Estimated GFR > 60, Glucose 113 H, Calcium 8.3 L, Phosphorus 1.5 L, Magnesium 1.1 L, Total Bilirubin 0.8, AST 630 H, ALT 177 H, Creatine Kinase 55100 H, Albumin 3.0 L, Vitamin B12 960 H, Folate 10.6, CBC w Diff NO MAN DIFF REQ, RBC 3.40 L, MCV 100.5 H, MCH 34.3 H, RDW 13.2, MPV 8.8, Gran % 63.4, Lymphocytes % 22.4, Monocytes % 12.5 H, Eosinophils % 1.4, Basophils % 0.3, Absolute Granulocytes 2.6, Absolute Lymphocytes 0.9 L, Absolute Monocytes 0.5, Absolute Eosinophils 0.1, Absolute Basophils 0, PUBS MCHC 34.2 07/06/16 0600: Total Bilirubin Cancelled, Direct Bilirubin Cancelled, AST Cancelled, ALT Cancelled, Alkaline Phosphatase Cancelled, Total Protein Cancelled, Albumin Cancelled 07/06/16 0315: Anion Gap 10, Estimated GFR > 60, Glucose 87, Calcium 8.0 L, Phosphorus 1.8 L, Magnesium 1.6, Total Bilirubin 0.9, Direct Bilirubin 0.4, AST 627 H, ALT 158 H , Alkaline Phosphatase 71, Creatine Kinase 42637 H, Troponin I 0.17 *H, Total Protein 5.5 L, Albumin 2.9 L, CBC w Diff NO MAN DIFF REQ, RBC 3.40 L, MCV 101.7 H, MCH 34.8 H, RDW 13.6, MPV 9.7, Gran % 58.2, Lymphocytes % 28.9, Monocytes % 11.0 H, Eosinophils % 1.4, Basophils % 0.5, Absolute Granulocytes 2.9, Absolute Lymphocytes 1.4, Absolute Monocytes 0.6, Absolute Eosinophils 0.1, Absolute Basophils 0, PUBS MCHC 34.2 Assessment/Plan Assessment/Plan Assessment: 1. Elevated troponin 2. Elevated CPK with evidence of rhabdomyolysis 3. Seizures 4. Persistent confusion 5. Abnormal liver function tests. 6. Call withdrawal Recommendations: -Continue to monitor for now. -Await echocardiogram -Further plans after the echocardiogram -Continue to monitor labs Continue telemetry? Yes
--- NOTE | 2016-07-07 14:14 | ULTRASOUND REPORT ---
EXAMINATION: US RETROPERITONEAL COMPLETE (RENAL) CLINICAL INFORMATION: Rhabdomyolysis. Altered mental status.. COMPARISON: CT 04/30/2009. Ultrasound for 2016. TECHNIQUE: Real-time imaging of the kidneys and bladder. FINDINGS: RIGHT KIDNEY: 12.6 x 3.4 x 4.5 cm (SAG x AP x TRV). The kidney is normal in size, contour, and echogenicity. Renal cortical thickness is normal. No calculi or focal parenchymal lesions. No hydronephrosis. LEFT KIDNEY: 12.7 x 5.6 x 4.5 cm (SAG x AP x TRV). The kidney is normal in size, contour, and echogenicity. Renal cortical thickness is normal. No calculi or focal parenchymal lesions. There is moderate to severe hydronephrosis. BLADDER: Decompressed with a Bansal catheter in place. IMPRESSION: Moderate to severe left-sided hydronephrosis. Unremarkable appearance of the right kidney..
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
--- NOTE | 2016-07-07 18:04 | CT SCAN REPORT ---
EXAMINATION: CT ABDOMEN AND PELVIS WITHOUT CONTRAST CLINICAL INFORMATION: Follow-up abnormal exam. Left hydronephrosis. COMPARISON: Same day renal ultrasound. April 2009. TECHNIQUE: Contiguous axial thin section helical images of the abdomen and pelvis were performed without oral or IV contrast. The data set was reformatted in the coronal and sagittal planes and reviewed on an independent workstation. DLP: 263 mGy-cm. FINDINGS: There is mild dependent bibasilar atelectasis. Within the right lung base adjacent to the pleura, there is a 6 mm nodular density on image 25/728. Within the left lower lobe adjacent to the pleura, there is a 4 mm nodular density on image 51. The visualized lung bases are otherwise clear. The visualized portions of the heart are unremarkable. The liver is of normal size and diffuse decreased attenuation without focal lesions nor intrahepatic biliary ductal dilation. A normal gallbladder is identified. There is no wall thickening or discernible pericholecystic fluid. The spleen, pancreas, adrenal glands are unremarkable. Both kidneys are of normal size and attenuation without nephrolithiasis. On the left, there is grade 3 hydronephrosis with marked pelviectasis without hydroureter possibly branch service representative of a UPJ obstruction. On the right, there is grade 1-2 hydronephrosis with mild pelviectasis with equivocal urothelial thickening. There is no abdominal free fluid. There is neither mesenteric nor retroperitoneal lymphadenopathy. There is sigmoid diverticulosis without evidence of diverticulitis. Otherwise, unremarkable unopacified loops of small and large bowel are identified. There is no pelvic free fluid. A Bansal catheter is in place. The urinary bladder is otherwise unremarkable. There is neither pelvic nor inguinal lymphadenopathy. Bone windows: Neither sclerotic nor lytic bone lesions are identified. IMPRESSION: No abdominal free fluid. Bilateral hydronephrosis, left greater than right. There is no discernible nephrolithiasis. There is the appearance of urothelial thickening within the right renal pelvis. This raises the possibility of an inflammatory or infectious process, but is nonspecific. Sigmoid diverticulosis without evidence of diverticulitis. Hepatic steatosis. Bilateral lower lobe nodular densities. Correlate with patient history. If deemed clinically appropriate, consider correlation with chest CT for further characterization of the entirety of the lungs.
--- NOTE | 2016-07-07 18:16 | Event Note ---
Event Note Event Note: S: Following the recent elevation in CPK greater than 32,000 over the last 72 hours while admitted hospital, a Renal US was obtained. Results of this ultrasound showed left-sided hydronephrosis. B: After a brief discussion with the Critical Care rail grinder a consult was placed out to nephrology and urology. Conversation with Dr. Magaña revealed that we should seek urology expertise to see whether the patient would benefit from decompression of left sided hydronephrosis. A/R: Urology recommended a CT of the Abdomen and Pelvis. CT imaging findings have been communicated with the urologist who mentioned she will see the patient in the AM. The patient does not need to be kept NPO for any procure in the AM.
--- NOTE | 2016-07-07 20:41 | ELECTROENCEPHALOGRAM REPORT ---
Electroencephalogram Report Electroencephalogram Results Date of service: 07/07/16 Attending MD: LUIS ARMANDO ALEJANDRA MD Energy Conservation Technician: Randa Jaramillo EEG Number: [id number] Test Utilizes: 10-20 system, 21 lead 18 channel digital recording Pertinent Hx/Physical/Neuro Findings/Clin Diagnosis: Breakthrough seizures. Hx TBI, Seizure disorder, craniotomy on right Inpatient Medications: Current Medications Sig/Libertad Start time Last Medication Dose Route Stop Time Status Admin Aspirin 81 MG DAILY 07/05 1000 AC 07/06 PO 0853 Chlordiazepoxide HCl 50 MG ONCE ONE 07/07 0445 DC PO 07/07 0446 Cyanocobalamin/ 1 BAG DAILY 07/05 1000 AC 07/07 Thiamine/Pyridoxine IV 0843 Sodium Chloride 1,000 ML Gabapentin 300 MG TID 07/05 1600 AC 07/07 PO 1621 Levetiracetam 500 MG Q12 07/05 1000 AC 07/07 N/A 1 UNIT IV 0843 Lorazepam 100 MG Q6H 07/07 2100 AC Dextrose/Water 1,000 ML IV Lorazepam 100 MG Q7H 07/05 2300 AC 07/07 Dextrose/Water 1,000 ML IV 07/07 2100 1622 Magnesium Sulfate 1 GM ONCE ONE 07/07 1100 DC 07/07 Dextrose/Water 100 ML IV 07/07 1459 1052 Magnesium Sulfate 1 GM .STK-MED ONE 07/07 0855 DC IM 07/07 0856 Magnesium Sulfate 1 GM .STK-MED ONE 07/07 0757 DC IM 07/07 0758 Methadone HCl 150 MG DAILY 07/07 1000 AC 07/07 PO 0821 Morphine Sulfate 2 MG Q12 07/05 1000 AC 07/07 IV 0856 Nicotine 14 MG DAILY 07/06 1103 AC 07/07 TOP 0856 Pantoprazole Sodium 40 MG DAILY 07/05 1000 AC 07/07 IV 0856 Potassium Chloride 40 MEQ ONCE ONE 07/07 0945 DC 07/07 PO 07/07 0946 1015 Potassium Chloride 40 MEQ Q13H 07/05 0245 AC 07/07 Sodium Chloride 1,000 ML IV 0034 Potassium Phosphate 15 mMol ONE ONE 07/07 1100 DC 07/07 Sodium Chloride 250 ML IV 07/07 1503 1410 Sodium Chloride 1,000 ML Q5H 07/05 0915 AC 07/07 IV 1621 Interpretation: The background throughout the record is composed of low to moderate amplitude monorythmic beta activity with intermixed muscle artifact. There are no focal or epileptiform abnormalities. photic stimulation adds no additional information, hyperventilation could not be performed. Impression: Abnormal due to suppression of normal cerebral rhythms, probably due to the ativan drip. No focal or epileptiform abnormalities are found.
[2016-07-08] VITALS (11 sets, daily range): BP systolic 94–128; BP diastolic 55–80
[2016-07-08 04:28] LABS: ABSOLUTE BASOPHIL COUNT 0 /CUMM (0.0-0.2); ABSOLUTE EOSINOPHIL COUNT 0.2 /CUMM (0.0-0.7); ABSOLUTE GRANULOCYTE CT 1.6 /CUMM (1.4-6.5); ABSOLUTE LYMPH COUNT 1.4 /CUMM (1.2-3.4); ABSOLUTE MONOCYTE COUNT 0.4 /CUMM (0.10-0.60); BASOPHIL % 0.6 % (0.0-2.0); EOSINOPHIL % 4.4 % (0-5); GRANULOCYTE % 43.9 % (42.2-75.2); HEMATOCRIT 33.4 % (42-52); MEAN CORPUSCULAR HGB 34.5 PG (27.0-31.0); MEAN CORPUSCULAR VOLUME 101.4 FL (80.0-94.0); MEAN PLATELET VOLUME 9.2 FL (7.4-10.4); RBC DISTRIBUTION WIDTH 13.4 % (11.5-14.5); WHITE BLOOD CELL COUNT 3.5 /CUMM (4.8-10.8)
[2016-07-08 04:33] LABS: PLATELET COUNT 83 /CUMM (130-400)
--- NOTE | 2016-07-08 06:54 | ECHOCARDIOGRAM REPORT ---
REESE LEVINE Age: 40 : 1975 Gender: M Exam Date: 07/07/2016 18:36 Exam Location: [facility] Ht (in): 73 Wt (lb): 162 BSA: 1.94 BP: 116 / 76 Ordering Physician: FREDDY ARREGUIN MD Referring Physician: Osvaldo Valdez MD Technologist: Janett Hand [facility] Room Number: 111 Indications: CARDIOMYOPATHY Rhythm: Sinus Technical Quality: Fair FINDINGS Left Ventricle Normal size left ventricle. No obvious regional wall motion abnormalities. Normal left ventricular ejection fraction estimated at 55-60%. Right Ventricle Normal right ventricular size and function. Right Atrium Normal right atrial size. Left Atrium Left atrial size at the upper limits of normal. Mitral Valve Mitral valve thickened. Trace mitral regurgitation. Aortic Valve Structurally normal trileaflet aortic valve. No aortic stenosis. No aortic regurgitation. Tricuspid Valve Tricuspid valve not well visualized, grossly normal. Trace tricuspid regurgitation. Pulmonic Valve Pulmonic valve not well visualized, grossly normal. Pericardium No pericardial effusion. Great Vessels Normal size aortic root and proximal ascending aorta. CONCLUSIONS 1. The aortic valve is trileaflet and normal. 2. Mitral leaflet thickening is present with minimal mitral insufficiency. 3. THere is no pericardial fluid detected. 4. The left ventricular chamber size and systolic function appear normal. 5. Minimal tricuspid insufficiency is present with no evidence of pulmonary hypertension. Osvaldo Valdez M.D. (Electronically Signed) Final Date: 08 July 2016 06:54 MEASUREMENTS (Male / Female) Normal Values 2D ECHO LV Diastolic Diameter PLAX 5.2 cm 4.2 - 5.9 / 3.9 - 5.3 cm LV Systolic Diameter PLAX 3.6 cm 2.1 - 4.0 cm LV Fractional Shortening PLAX 30.8 % 25 - 46 % LV Ejection Fraction 2D Teich 58.0 % IVS Diastolic Thickness 1.1 cm LVPW Diastolic Thickness 1.1 cm LV Relative Wall Thickness 0.4 RV Internal Dim ED PLAX 3.3 cm 1.9 - 3.8 cm LVOT Diameter 2.0 cm Aortic Root Diameter 3.0 cm LA Systolic Diameter LX 3.0 cm 3.0 - 4.0 / 2.7 - 3.8 cm LA Volume 38.0 cm 18 - 58 / 22 - 52 cm Ascending Aorta Diameter 2.6 cm DOPPLER AV Peak Velocity 115.0 cm/s AV Peak Gradient 5.3 mmHg AV Mean Velocity 81.8 cm/s AV Mean Gradient 3.0 mmHg AV Velocity Time Integral 24.6 cm LVOT Peak Velocity 103.0 cm/s LVOT Peak Gradient 4.2 mmHg LVOT Mean Velocity 73.0 cm/s LVOT Mean Gradient 2.0 mmHg LVOT Velocity Time Integral 20.7 cm LVOT Stroke Volume 65.0 cm AV Area Cont Eq vti 2.6 cm AV Area Cont Eq pk 2.8 cm MV Peak Velocity 88.7 cm/s MV Peak Gradient 3.1 mmHg MV Mean Velocity 47.6 cm/s MV Mean Gradient 1.0 mmHg Mitral E Point Velocity 78.5 cm/s Mitral A Point Velocity 38.0 cm/s Mitral E to A Ratio 2.1 MV PHT Velocity 89.3 cm/s MV Deceleration Coles 222.0 cm/s MV Pressure Half Time 120.7 ms MV Area PHT 1.8 cm MV Deceleration Time 289.0 ms TR Peak Velocity 84.5 cm/s TR Peak Gradient 2.9 mmHg Right Atrial Pressure 5.0 mmHg Pulmonary Artery Systolic Pressu 7.9 mmHg Right Ventricular Systolic Press 7.9 mmHg PV Peak Velocity 90.9 cm/s PV Peak Gradient 3.3 mmHg PV Mean Velocity 62.9 cm/s PV Mean Gradient 2.0 mmHg PV Velocity Time Integral 28.0 cm LV E' Lateral Velocity 14.9 cm/s Mitral E to LV E' Lateral Ratio 5.3 LV E' Septal Velocity 9.8 cm/s Mitral E to LV E' Septal Ratio 8.1
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
--- NOTE | 2016-07-08 09:13 | PN- CRCU ---
Subjective HPI/Critical Care Issues: The patient has significantly improved over the past 24 hours. He is on Ativan at 10 mg per hour. He is now alert and oriented, as well as, and cooperative. He states he is feeling better. He has a poor appetite but is trying to eat more. His respiratory status is stable noting he remains on room air with saturations in the high 90s. The patient is afebrile. He has excellent urine output. Objective Current Medications: Current Medications Sig/Libertad Start time Last Medication Dose Route Stop Time Status Admin Aspirin 81 MG DAILY 07/05 1000 AC 07/06 PO 0853 Cyanocobalamin/ 1 BAG DAILY 07/05 1000 DC 07/07 Thiamine/Pyridoxine IV 0843 Sodium Chloride 1,000 ML Gabapentin 300 MG TID 07/05 1600 AC 07/07 PO 2208 Levetiracetam 500 MG Q12 07/05 1000 AC 07/07 N/A 1 UNIT IV 2208 Lorazepam 100 MG Q6H 07/07 2100 AC 07/08 Dextrose/Water 1,000 ML IV 0549 Lorazepam 100 MG Q7H 07/05 2300 DC 07/07 Dextrose/Water 1,000 ML IV 07/07 2100 1622 Magnesium Oxide 400 MG DAILY 07/08 1000 AC PO Magnesium Sulfate 1 GM ONCE ONE 07/07 1100 DC 07/07 Dextrose/Water 100 ML IV 07/07 1459 1052 Methadone HCl 150 MG DAILY 07/07 1000 AC 07/07 PO 0821 Morphine Sulfate 2 MG Q12 07/05 1000 AC 07/07 IV 2208 Multivitamins 1 TAB DAILY 07/08 1000 AC PO Nicotine 14 MG DAILY 07/06 1103 AC 07/07 TOP 0856 Pantoprazole Sodium 40 MG DAILY 07/05 1000 AC 07/07 IV 0856 Potassium Chloride 60 MEQ ONCE ONE 07/08 0530 DC 07/08 PO 07/08 0531 0625 Potassium Chloride 40 MEQ ONCE ONE 07/07 0945 DC 07/07 PO 07/07 0946 1015 Potassium Chloride 40 MEQ Q13H 07/05 0245 AC 07/08 Sodium Chloride 1,000 ML IV 0805 Potassium Phosphate 15 mMol ONE ONE 07/07 1100 DC 07/07 Sodium Chloride 250 ML IV 07/07 1503 1410 Sodium Chloride 1,000 ML Q5H 07/05 0915 AC 07/08 IV 0331 Thiamine HCl 50 MG DAILY 07/08 1000 AC PO Vital Signs & I&O Last 24 Hrs of Vitals and I&O: Vital Signs Date Time Temp Pulse Resp B/P Pulse O2 O2 Flow FiO2 Ox Delivery Rate 07/08 0600 98.4 64 18 102/55 07/08 0400 98.4 62 16 94/58 07/08 0200 97.3 64 12 100/58 07/08 0000 97.3 62 12 104/67 07/08 0000 97.3 62 12 106/70 98 Room Air Room Air 07/07 2200 97.0 78 18 112/57 07/07 2000 97.2 82 24 114/70 07/07 1600 95 Room Air 07/07 1600 97.6 112 34 95/63 95 Ventilator 40% Intake & Output 07/08 1600 07/08 0800 07/08 0000 Intake Total 3348 3826 Output Total 1850 1800 Balance 1498 2026 Intake, IV 3288 3826 Intake, Oral 60 Number 0 0 Bowel Movements Output, Urine 1850 1800 Physical Exam General Appearance: well developed/nourished, awake, no distress, Head Scar present Head: atraumatic Respiratory: normal breath sounds, chest non-tender, no respiratory distress Cardiovascular: regular rate/rhythm, edema Gastrointestinal: normal bowel sounds, soft, non-tender, no organomegaly Back: normal inspection Extremities: normal inspection, normal capillary refill, no edema Results Last 24 Hrs of Lab Results: Laboratory Tests 07/08/16 0340: Anion Gap 9, Estimated GFR > 60, BUN/Creatinine Ratio 2.9 L, Phosphorus 4.2, Magnesium 1.5 L, Creatine Kinase Pending, CBC w Diff NO MAN DIFF REQ, RBC 3.30 L, MCV 101.4 H, MCH 34.5 H, RDW 13.4, MPV 9.2, Gran % 43.9, Lymphocytes % 39.1 , Monocytes % 12.0 H, Eosinophils % 4.4, Basophils % 0.6, Absolute Granulocytes 1.6, Absolute Lymphocytes 1.4, Absolute Monocytes 0.4, Absolute Eosinophils 0.2, Absolute Basophils 0, PUBS MCHC 34.0 Impression/Plan Impression/Plan Impression/Plan: 1. Opiate withdrawl. 2. Improved encephalopathy. 3. Rhabdomyolysis. 4. Left-sided hydronephrosis - urology consulted. 5. Hypokalemia. 6. ETOH hepatitis. 7. Thrombocytopenia, secondary to ETOH? Recommendations: * Potassium and magnesium repletion. * Wean Ativan down per EtOH pathway. * NPO pending urology input. * Follow-up CPK results. * Will discontinue IV fluids once the patient's CPK is less than 10,000 as recommended by nephrology. * Change to by mouth Keppra when cleared by neurology. * Follow-up psychiatry recommendations. * Continue chronic methadone. * Continue multivitamin, thiamine and folate. * DVT prophylaxis with Alps. No subcutaneous heparin due to, cytopenia. * Continue all supportive care.
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
--- NOTE | 2016-07-08 13:29 | NUR ---
@0800-PT ALERT AND ORIENTED. COOP. SITTER AT BEDSIDE. CIWA 0-2 AT THIS TIME. FOLLOWS COMMANDS. CONT ON ATIVAN GTT-CURRENTLY INFUSING AT 10MG/HR-WILL ATTEMPT TO TITRATE DOWN PER CIWA. NO RESTRAINTS NEEDED AT THIS TIME. CONT ON RA, LUNGS CLEAR O2SAT 97%. DENIES SOB. NSR HR 80S. BP 90-110. REG DIET PROVIDED THIS AM BUT UNABLE TO CHEW FOOD DUE TO DENTURES WERE LEFT AT HOME. REPORTED TO HOUSESTAFF AND DIET TO BE CHANGED TO [facility] SOFT FOR NOW. NEW TRAY ORD. BRITT IN PLACE WITH MOD AMTS OF CLEAR YELLOW URINE NOTED. SKIN INTACT EXCEPT FOR ECCHYMOSIS FROM FALL AT HOME AND ABRASIONS TO L FOREHEAD AND L ELBOW. IVF INFUSING NS WITH 40MEQ KCL INFUSING AT 75ML/HR AND NS INFUSING AT 200ML/HR FOR ELEVATED CPK. K+REPLACED THIS AM. CONT TO MONITOR CLOSELY. CALL JONES WITHIN REACH.
--- NOTE | 2016-07-08 13:34 | NUR ---
@1000-PT MADE NPO DUE TO POSSIBILITY OF UROLOGY PROCEDURE. AWAITING DR WARREN ASSESSMENT. CONT TO MONITOR.
--- NOTE | 2016-07-08 17:25 | Transfer of Care Summary ---
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 Rhabdomyolysis Hx of Opiate withdrawal Alcoholic Hepatitis Respiratory He is currently saturating well on 97%. Continue to monitor and maintain saturations above 95%. Infectious Initially the patient was worked up for questionable encephalitis, at the time of admission. However given the fact that he was afebrile and his physical exam was indeterminant this differential has been deferred. Cardiovascular At time of admission the patient did have an elevation of his troponin, 0.77--> 1.39 --> 1.52-->0.92-->0.17.Initial EKG showed T wave inversions in II, III, aVF. Repeat EKG's have been WNL. Cardiology consult was obtained. EKG changes to demand ischemia. An echocardiogram has been performed. Normal left ventricular ejection fraction estimated at 55-60%. Metabolic Initial CPK done at the time of admission was 2379 trended up to above 32,000. Patient was aggressively hydrated. Urione output monitored. CPK today: 2390 AST (249) and ALT (140) were elevated. Likely due to alcoholic hepatitis. While admitted the patient was on a CIWA and needed an Ativan drip. Over the last 24 hours his CIWA trended down. He is currently off Ativan. Currently on a CIWA protocol. Scores: 0,0,0,0,0,0. May consider PO Ativan if warranted. Neurology Patient was started on IV Kepra after a neurology consult was obtained. Continue PO Kepra 500 mg BID. The patient does follow-up with methadone clinic. Their phone number is . I spoke with them this morning and confirmed the patient's methadone dose of 150 mg daily. He receives these on a one-time window dose followed by 6 doses for the rest of the week. EEG completed. No focal abnormalities found. Will defer to neurology to assess need for anti seizure. Continue Methadone 150 mg daily. Diet Initillay started on a diet this AM. Mechanical soft. DVT Prophylaxis ALPS Code Status Full Code Pertinent Lab Results: SERVICE DATE: 07/07/16- EXAM TYPE: CAT - CT ABD & PELVIS W/O IV CONTRAS EXAMINATION: CT ABDOMEN AND PELVIS WITHOUT CONTRAST CLINICAL INFORMATION: Follow-up abnormal exam. Left hydronephrosis. COMPARISON: Same day renal ultrasound. April 2009. TECHNIQUE: Contiguous axial thin section helical images of the abdomen and pelvis were performed without oral or IV contrast. The data set was reformatted in the coronal and sagittal planes and reviewed on an independent workstation. DLP: 263 mGy-cm. FINDINGS: There is mild dependent bibasilar atelectasis. Within the right lung base adjacent to the pleura, there is a 6 mm nodular density on image 25/728. Within the left lower lobe adjacent to the pleura, there is a 4 mm nodular density on image 51. The visualized lung bases are otherwise clear. The visualized portions of the heart are unremarkable. The liver is of normal size and diffuse decreased attenuation without focal lesions nor intrahepatic biliary ductal dilation. A normal gallbladder is identified. There is no wall thickening or discernible pericholecystic fluid. The spleen, pancreas, adrenal glands are unremarkable. Both kidneys are of normal size and attenuation without nephrolithiasis. 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 On the right, there is grade 1-2 hydronephrosis with mild pelviectasis with equivocal urothelial thickening. There is no abdominal free fluid. There is neither mesenteric nor retroperitoneal lymphadenopathy. There is sigmoid diverticulosis without evidence of diverticulitis. Otherwise, unremarkable unopacified loops of small and large bowel are identified. There is no pelvic free fluid. A Bansal catheter is in place. The urinary bladder is otherwise unremarkable. There is neither pelvic nor inguinal lymphadenopathy. Bone windows: Neither sclerotic nor lytic bone lesions are identified. IMPRESSION: No abdominal free fluid. Bilateral hydronephrosis, left greater than right. There is no discernible nephrolithiasis. There is the appearance of urothelial thickening within the right renal pelvis. This raises the possibility of an inflammatory or infectious process, but is nonspecific. Sigmoid diverticulosis without evidence of diverticulitis. Hepatic steatosis. Bilateral lower lobe nodular densities. Correlate with patient history. If deemed clinically appropriate, consider correlation with chest CT for further characterization of the entirety of the lungs. SERVICE DATE: 07/07/16 EXAM TYPE: US - US-RENAL/KIDNEY EXAMINATION: US RETROPERITONEAL COMPLETE (RENAL) CLINICAL INFORMATION: Rhabdomyolysis. Altered mental status.. COMPARISON: CT 04/30/2009. Ultrasound for 2016. TECHNIQUE: Real-time imaging of the kidneys and bladder. FINDINGS: RIGHT KIDNEY: 12.6 x 3.4 x 4.5 cm (SAG x AP x TRV). The kidney is normal in size, contour, and echogenicity. Renal cortical thickness is normal. No calculi or focal parenchymal lesions. No hydronephrosis. LEFT KIDNEY: 12.7 x 5.6 x 4.5 cm (SAG x AP x TRV). The kidney is normal in size, contour, and echogenicity. Renal cortical thickness is normal. No calculi or focal parenchymal lesions. There is moderate to severe hydronephrosis. BLADDER: Decompressed with a Bansal catheter in place. IMPRESSION: Moderate to severe left-sided hydronephrosis. Unremarkable appearance of the right kidney.. Assessment/Plan: Please Follow Up: 1) No subcutaneous heparin due to low platelets, last platelet 120,000. 2) Once the patient's teeth have been brought in by his brother his diet may be advanced. 3) Patient has agreed to attend [facility] after discharge. May need a referral for [facility] in [place], [place]. See Social Work note. 4) Patient will need to follow his urologist for left-sided chronic hydronephrosis. The patient was seen by Dr. Chavez while admitted to the hospital. 5) Patient will need to refrain from driving until seizure free for a minimum of 3 months 6) He should follow-up in the neurology clinic, either at [facility] or at [facility]
--- NOTE | 2016-07-08 19:28 | NUR ---
THROUGHOUT THE DAY THE PT'S ATIVAN GTT WAS DECREASED BY 1MG/HR FROM 9MG/HR TO THE CURRENT RATE OF 3MG/HR. DR MARCOS [facility] NOTIFIED AND PER PT IS TO BE TITRATED DOWN TO 1-2MG/HR( LOW THE PT WILL TOLERATE) THROUGHOUT THE NIGHT AND THEN PT WILL BE STARTED ON PO ATIVAN IN THE MORNING. ONCOMING RN MADE AWARE.
[2016-07-09] VITALS (7 sets, daily range): BP systolic 97–126; BP diastolic 50–80
[2016-07-09 03:42] LABS: ABSOLUTE BASOPHIL COUNT 0 /CUMM (0.0-0.2); ABSOLUTE EOSINOPHIL COUNT 0.2 /CUMM (0.0-0.7); ABSOLUTE GRANULOCYTE CT 2.3 /CUMM (1.4-6.5); ABSOLUTE LYMPH COUNT 1.5 /CUMM (1.2-3.4); ABSOLUTE MONOCYTE COUNT 0.5 /CUMM (0.10-0.60); BASOPHIL % 0.7 % (0.0-2.0); EOSINOPHIL % 5.4 % (0-5); GRANULOCYTE % 50.3 % (42.2-75.2); HEMATOCRIT 35.4 % (42-52); MEAN CORPUSCULAR HGB 34.5 PG (27.0-31.0); MEAN CORPUSCULAR HGB CONC 33.9 G/DL (33.0-37.0); MEAN CORPUSCULAR VOLUME 101.7 FL (80.0-94.0); MEAN PLATELET VOLUME 8.8 FL (7.4-10.4); PLATELET COUNT 120 /CUMM (130-400); RBC DISTRIBUTION WIDTH 13.4 % (11.5-14.5); RED BLOOD CELL CT 3.48 /CUMM (4.70-6.10); WHITE BLOOD CELL COUNT 4.5 /CUMM (4.8-10.8)
--- NOTE | 2016-07-09 06:06 | PN- Resident CRCU ---
Subjective HPI/CRCU Issues: Mr Alexander was seen and examined this morning. He is resting comfortably in bed. He reports no issues overnight. States he was able to get some rest. He is tolerating by mouth intake well. Currently has a Bansal in place although is agreeable to discontinuing it and potentially increasing his activity. He denies any nausea, tremors, anxiety, or depression. He denies any fever, chills, nausea, vomiting. Still waiting for his borther adrien to bring in his teeth but for now he is content with his current mechanical soft diet. 24 Hour Events: No Events reported. IV Ativan was discontinued. Objective Vital Signs & I&O Last 8 Hrs of Vitals and I&O: T: 98.4 HR: 70 RR: 12 BP 118/64 Exam General Appearance: well developed/nourished, no apparent distress, alert, awake Respiratory: normal breath sounds, chest non-tender Cardiovascular: regular rate/rhythm Gastrointestinal: normal bowel sounds, soft, non-tender Extremities: normal inspection, normal capillary refill, normal range of motion Cranial Nerves: normal hearing, normal speech Skin: intact Current Medications: Current Medications Sig/Libertad Start time Last Medication Dose Route Stop Time Status Admin Aspirin 81 MG DAILY 07/05 1000 AC 07/08 PO 18 Cyanocobalamin/ 1 BAG DAILY 07/05 1000 DC 07/07 Thiamine/Pyridoxine IV 0843 Sodium Chloride 1,000 ML Folic Acid 1 MG DAILY 07/08 1000 AC 07/08 PO 1032 Gabapentin 300 MG TID 07/05 1600 AC 07/08 PO 2115 Levetiracetam 500 MG BID 07/08 2200 AC 07/08 PO 211 Levetiracetam 500 MG Q12 07/05 1000 DC 07/08 N/A 1 UNIT IV 0918 Lorazepam 100 MG Q24H 07/08 2030 AC 07/08 Dextrose/Water 1,000 ML IV 211 Lorazepam 100 MG Q10H 07/08 1500 DC Dextrose/Water 1,000 ML IV 07/08 2100 Lorazepam 100 MG Q6H 07/07 2100 DC 07/08 Dextrose/Water 1,000 ML IV 07/08 1459 0549 Magnesium Oxide 400 MG DAILY 07/08 1000 AC 07/08 PO 0918 Methadone HCl 150 MG DAILY 07/07 1000 AC 07/08 PO 0918 Morphine Sulfate 2 MG Q12 07/05 1000 AC 07/08 IV 2116 Multivitamins 1 TAB DAILY 07/08 1000 AC 07/08 PO 0918 Nicotine 14 MG DAILY 07/06 1103 AC 07/08 TOP 0919 Pantoprazole Sodium 40 MG DAILY 07/05 1000 AC 07/08 IV 0918 Potassium Chloride 40 MEQ Q13H 07/05 0245 AC 07/08 Sodium Chloride 1,000 ML IV 2110 Sodium Chloride 1,000 ML Q5H 07/05 0915 DC 07/08 IV 0331 Thiamine HCl 50 MG DAILY 07/08 1000 AC 07/08 PO 0918 Impression/Plan Impression/Problem List Impression: Mr Alexander is a 40 year old male with PMH of 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 Rhabdomyolysis Hx of Opiate withdrawal Alcoholic Hepatitis Respiratory He is currently saturating well on 97%. Continue to monitor and maintain saturations above 95%. Infectious Patient has been afebrile over the last 48 hours hence the differential and workup behind encephalitis has been deferred. WBC 4.5 Cardiovascular At time of admission the patient did have an elevation of his troponin, 0.77--> 1.39 --> 1.52-->0.92-->0.17. Initial EKG showed T wave inversions in II, III, aVF. Repeat EKG's have been WNL. Cardiology consult has been obtained. EKG changes to demand ischemia. An echocardiogram has been performed. Normal left ventricular ejection fraction estimated at 55-60%. Alimentry Bed side swallow evaluation done on the early evening of 07/07/2016, elicited no abnormalities. Patient has a regular diet ordered. Metabolic Initial CPK done at the time of admission was 2379 trended up to above 32,000[place] [address] -->7480. We have discontinued the patients IVF. CPK today: 2390 We'll continue aggressive IV hydration until levels reach <10,000. Will repeat CK in am. Monitor BEP, since CK> 5000, patient might have DAVID. Renal US ordered yesterday. Tailor UOP approx 3 mL/kg. Target: 225 ml/hr. Monitor K and Ca frequently. AST (249) and ALT (140) were elevated. Likely due to alcoholic hepatitis. Currently on a CIWA protocol. Scores: 0,0,0,0,0,0. On an Ativan drip has been discontinued, observe off ativat, may consider PO if warranted. Neurology Patient was started on IV Kepra after a neurology consult was obtained. Continue PO Kepra 500 mg BID. Patient will need to refrain from driving until seizure free for a minimum of 3 months He should follow-up in the neurology clinic, either at [facility] or at [facility] On 07/05/2016 his gabapentin was also resumed owing to mild anti seizure action. Consider discontinuing sitter. The patient does follow-up with methadone clinic, [facility] ([facility] Their phone number is [phone]. I spoke with them this morning and confirmed the patient's methadone dose of 150 mg daily. He receives these on a one-time window dose followed by 6 doses for the rest of the week. EEG completed. No focal abnormalities found. Will defer to neurology to assess need for anti seizure. Continue Methadone 150 mg daily. Diet Initillay started on a diet this AM. Mechanical soft. DVT Prophylaxis ALPS Code Status Full Code Problem List: 1. Rhabdomyolysis 2. Seizure 3. Transaminitis 4. Elevated troponin Pain Ratin Tomorrow's Labs & Rationales: CBC: Monitor H/H ICU Bundle : monitor electrolytes. Plan DVT/Prophylaxis: mechanical, early ambulation low risk (ALPS)
--- NOTE | 2016-07-09 08:18 | NUR ---
@0800-PT ALERT AND ORIENTED. CALM AND COOP. OCHOA. FOLLOWS COMMANDS. PUPILS EQUAL AND REACTIVE. SITTER AND IV ATIVAN HAVE BEEN DISCONTINUED OVERNIGHT. DENIES PAIN AT THIS TIME. CONT ON RA, LUNGS CLEAR, DENIES SOB. O2SAT 99-100%. NSR HR 80S/ BP STABLE. ? DOWNGRADE TODAY-AWAIT ATTENDING ASSESSMENT. NO GI DISTRESS NOTED-[facility] SOFT DIET DUE TO DENTURES NOT AT HOSPITAL. BRITT IN PLACE BUT WILL DISCONTINUE THIS AM AFTER BREAKFAST. SKIN INTACT EXCEPT FOR HEALING ABRASION TO L FOREHEAD AND L ELBOW FROM FALL AT HOME. PT ALSO HAS MULT ECCHYMOTIC AREAS. WILL GET OOB TODAY. IVF CONT NS WITH 40MEQKCL INFUSING AT 75ML/HR. WILL OBTAIN MAG REPLACEMENT FOR MG 1.4. CONT TO MONITOR CLOSELY, CALL JONES WITHIN REACH.
--- NOTE | 2016-07-09 09:18 | PN- CRCU ---
Subjective HPI/Critical Care Issues: The patient is awake and alert. He reports feeling significantly improved overall. He is calm and cooperative. He denies any new complaints. Objective Current Medications: Current Medications Sig/Libertad Start time Last Medication Dose Route Stop Time Status Admin Aspirin 81 MG DAILY 07/05 1000 AC 07/09 PO 0907 Folic Acid 1 MG DAILY 07/08 1000 AC 07/09 PO 0906 Gabapentin 300 MG TID 07/05 1600 AC 07/09 PO 0906 Levetiracetam 500 MG BID 07/08 2200 AC 07/09 PO 0906 Levetiracetam 500 MG Q12 07/05 1000 DC 07/08 N/A 1 UNIT IV 0918 Lorazepam 100 MG Q24H 07/08 2030 DC 07/08 Dextrose/Water 1,000 ML IV 2111 Lorazepam 100 MG Q10H 07/08 1500 DC Dextrose/Water 1,000 ML IV 07/08 2100 Lorazepam 100 MG Q6H 07/07 2100 DC 07/08 Dextrose/Water 1,000 ML IV 07/08 1459 0549 Magnesium Oxide 400 MG DAILY 07/08 1000 AC 07/09 PO 0906 Magnesium Sulfate 1 GM ONCE ONE 07/09 0800 AC 07/09 Dextrose/Water 100 ML IV 07/09 1159 0907 Methadone HCl 150 MG DAILY 07/07 1000 AC 07/09 PO 0907 Morphine Sulfate 2 MG Q12 07/05 1000 DC 07/08 IV 2116 Multivitamins 1 TAB DAILY 07/08 1000 AC 07/09 PO 0906 Nicotine 14 MG DAILY 07/06 1103 AC 07/09 TOP 0906 Pantoprazole Sodium 40 MG DAILY 07/05 1000 AC 07/09 IV 0906 Potassium Chloride 40 MEQ Q13H 07/05 0245 AC 07/09 Sodium Chloride 1,000 ML IV 0907 Sodium Chloride 1,000 ML Q5H 07/05 0915 DC 07/08 IV 0331 Thiamine HCl 50 MG DAILY 07/08 1000 AC 07/09 PO 0905 Vital Signs & I&O Last 24 Hrs of Vitals and I&O: Vital Signs Date Time Temp Pulse Resp B/P B/P Pulse O2 O2 Flow FiO2 Mean Ox Delivery Rate 07/09 08 98.6 78 18 126/80 99 Room Air 07/09 0600 98.4 70 12 118/64 07/09 0400 97.1 60 16 97/50 07/09 0200 99.0 62 12 108/59 07/09 0000 99.0 62 12 102/61 07/09 0000 99.0 62 12 100/60 97 Room Air Room Air 07/08 2200 97.5 62 18 103/62 07/08 2000 97.5 68 18 107/63 07/08 1800 98.0 73 16 108/80 07/08 1600 98.0 67 20 120/76 07/08 1600 96 Room Air Room Air 07/08 1600 98.0 67 20 120/76 97 Room Air Room Air 07/08 1400 99.5 69 20 123/77 07/08 1200 99.5 64 20 112/80 07/08 1200 95 Room Air Room Air Intake & Output 07/09 1600 07/09 0800 07/09 0000 Intake Total 791 972 Output Total 1750 2310 Balance -959 -1338 Intake, IV 631 892 Intake, Oral 160 80 Number 0 0 Bowel Movements Output, Urine 1750 2310 Physical Exam General Appearance: well developed/nourished, awake, no distress, Head Scar present Head: atraumatic Respiratory: normal breath sounds, chest non-tender, no respiratory distress Cardiovascular: regular rate/rhythm, edema Gastrointestinal: normal bowel sounds, soft, non-tender, no organomegaly Back: normal inspection Extremities: normal inspection, normal capillary refill, no edema Results Last 24 Hrs of Lab Results: Laboratory Tests 07/09/16 0320: Anion Gap 7, Estimated GFR > 60, Glucose 79, Calcium 8.1 L, Phosphorus 4.5, Magnesium 1.4 L, Total Bilirubin 0.5, Direct Bilirubin 0.3, AST 249 H, ALT 140 H, Alkaline Phosphatase 72, Creatine Kinase 2390 H, Total Protein 4.9 L, Albumin 2.5 L 07/09/16 0310: CBC w Diff NO MAN DIFF REQ, RBC 3.48 L, MCV 101.7 H, MCH 34.5 H, RDW 13.4, MPV 8.8, Gran % 50.3, Lymphocytes % 32.7, Monocytes % 10.9 H, Eosinophils % 5.4 H, Basophils % 0.7, Absolute Granulocytes 2.3, Absolute Lymphocytes 1.5, Absolute Monocytes 0.5, Absolute Eosinophils 0.2, Absolute Basophils 0, PUBS MCHC 33.9 Impression/Plan Impression/Plan Impression/Plan: 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 2. History of substance abuse, on chronic methadone. 3. Rhabdomyolysis - improved with aggressive fluid hydration. 4. Left-sided hydronephrosis - the patient was evaluated by Dr. Chavez who stated this was chronic and worked up several years ago. No intervention necessary at this time. 5. Hypokalemia. 6. ETOH hepatitis. 7. Thrombocytopenia, secondary to ETOH? Recommendations: * Discontinue Bansal catheter. * Stop IVFs, encourage PO intake. * Will follow neurology recommendations, appreciate input. * One-to-one sitter discontinued, patient agreeable to go to the [facility]. * Continue chronic methadone. * Continue multivitamin, thiamine and folate. * DVT prophylaxis with Alps. No subcutaneous heparin due to low platelets. * Out of bed to chair. Increase activity/ambulate. * Downgrade to GEN med. * Continue all supportive care.
--- NOTE | 2016-07-09 12:38 | Cons- Urology ---
General Information and HPI Consulting Request Date of Consult: 07/08/16 Requested By: Kang ARMAS MD Reason for Consult: hydronephrosis Source of Information: patient Exam Limitations: no limitations History of Present Illness: Patient is a 40 YO M with PMH of anxiety, depression, mood disorder, seizures came to the ER with cheif concern of seizure this am. Patient is very confused in ER not able to answer any questions. By the time we went to ER he is very agitated pulling all the lines. We witnessed an episode of clonic seizure while entering room, he didnt have any bowel/bladder incontinence/tongue biting on nonrebreather mask. Unable to perform LP because of severe agitation. Patient was BIBA after multiple seizures. He had a workup which also revealed a left hydronephrosis. once the patient was more awake, he was able to give a hx of left flank pain that is intermittent in nature with a hx of Urology intervention for it. He is seen at [facility] for this UPJO and has had a surgical procedure for it. Allergies/Medications Allergies: Coded Allergies: NO KNOWN ALLERGIES (02/20/15) Home Med List: Buspirone HCl 15 MG TABLET 1 TAB PO BID ANXIETY (Reported) Doxycycline (Vibramycin 100 MG Cap) 100 MG CAP 1 CAP PO BID cellulitis Escitalopram Oxalate 20 MG TABLET 1 TAB PO DAILY ANTIDEPRSANT (Reported) Gabapentin 300 MG CAPSULE 1 CAP PO TID NERVE PAIN (Reported) Methadone HCl 5 MG TABLET 140 MG PO D PAIN (Reported) Mupirocin (Bactroban) 2% OIN 1 BERT TOP TID cellulitis Current Medications: Current Medications Sig/Libertad Start time Last Medication Dose Route Stop Time Status Admin Aspirin 81 MG DAILY 07/05 1000 AC 07/09 PO 0907 Folic Acid 1 MG DAILY 07/08 1000 AC 07/09 PO 0906 Gabapentin 300 MG TID 07/05 1600 AC 07/09 PO 09 Levetiracetam 500 MG BID 07/08 2200 AC 07/09 PO 09 Lorazepam 100 MG Q24H 07/08 2030 DC 07/08 Dextrose/Water 1,000 ML IV 2111 Lorazepam 100 MG Q10H 07/08 1500 DC Dextrose/Water 1,000 ML IV 07/08 2100 Lorazepam 100 MG Q6H 07/07 2100 DC 07/08 Dextrose/Water 1,000 ML IV 07/08 1459 0549 Magnesium Oxide 400 MG DAILY 07/08 1000 AC 07/09 PO 0906 Magnesium Sulfate 1 GM ONCE ONE 07/09 0800 DC 07/09 Dextrose/Water 100 ML IV 07/09 1159 0907 Methadone HCl 150 MG DAILY 07/07 1000 AC 07/09 PO 0907 Morphine Sulfate 2 MG Q12 07/05 1000 DC 07/08 IV 2116 Multivitamins 1 TAB DAILY 07/08 1000 AC 07/09 PO 0906 Nicotine 14 MG DAILY 07/06 1103 AC 07/09 TOP 0906 Pantoprazole Sodium 40 MG DAILY 07/05 1000 AC 07/09 IV 0906 Potassium Chloride 40 MEQ Q13H 07/05 0245 AC 07/09 Sodium Chloride 1,000 ML IV 0907 Thiamine HCl 50 MG DAILY 07/08 1000 AC 07/09 PO 0905 Past History Medical History Neurological: seizure, SEIZURES TBI EENT: NONE Cardiovascular: NONE Respiratory: NONE Gastrointestinal: NONE Hepatic: NONE Renal: UPJO Musculoskeletal: NONE Psychiatric: anxiety, substance abuse, CHRONIC PAIN Endocrine: NONE 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 Home Who Do You Live With? self Services at Home: None Primary Language: German Smoking Status: Current Everyday Smoker (1 PPD) ETOH Use: heavy use Illicit Drug Use: marijuana, marijuana 3 weeks ago Functional Ability ADLs Independent: dressing, eating, toileting, bathing. Ambulation: independent IADLs Independent: shopping, housework, finances, food prep, telephone, transportation , medication admin. Employment History Employment: Disability Retired? no Review of Systems Review of Systems Constitutional: Reports: no symptoms. EENTM: Reports: no symptoms. Cardiovascular: Reports: no symptoms. Respiratory: Reports: no symptoms. GI: Reports: no symptoms. Genitourinary: Reports: no symptoms. Musculoskeletal: Reports: back pain. Skin: Reports: no symptoms. Neurological/Psychological: Reports: anxiety. Hematologic/Endocrine: Reports: bruising. Immunologic/Allergic: Reports: no symptoms. Exam & Diagnostic Data Vital Signs and I&O Vital Signs Date Time Temp Pulse Resp B/P B/P Pulse O2 O2 Flow FiO2 Mean Ox Delivery Rate 07/09 0800 98.6 78 18 126/80 99 Room Air 07/09 0600 98.4 70 12 118/64 07/09 0400 97.1 60 16 97/50 07/09 0200 99.0 62 12 108/59 07/09 0000 99.0 62 12 102/61 07/09 0000 99.0 62 12 100/60 97 Room Air Room Air 07/08 2200 97.5 62 18 103/62 07/08 2000 97.5 68 18 107/63 07/08 1800 98.0 73 16 108/80 07/08 1600 98.0 67 20 120/76 07/08 1600 96 Room Air Room Air 07/08 1600 98.0 67 20 120/76 97 Room Air Room Air 07/08 1400 99.5 69 20 123/77 Intake & Output 07/09 1600 07/09 0800 07/09 0000 07/08 1600 07/08 0800 07/08 0000 Intake Total 791 866 555 1678 3826 Output Total 1750 2310 3125 1850 1800 Balance -482 -7708 -3146 1498 2026 Intake, IV 631 335 287 8258 3826 Intake, Oral 160 80 390 60 Number 0 0 0 0 Bowel Movements Output, Urine 1750 2310 3125 1850 1800 Physical Exam General Appearance: well developed/nourished, alert, awake Head: normal appearance Eyes: Bilateral: normal appearance. Neck: normal inspection Respiratory: normal breath sounds, no respiratory distress Gastrointestinal: soft, non-tender Rectal: deferred Back: normal inspection Extremities: normal inspection Neurologic/Psych: awake, alert Cranial Nerves: normal hearing, normal speech Skin: intact, warm/dry Last 24 Hours of Labs: Laboratory Tests 07/09 07/09 0320 0310 Chemistry Sodium (137 - 145 mmol/L) 141 Potassium (3.5 - 5.1 mmol/L) 4.1 Chloride (98 - 107 mmol/L) 107 Carbon Dioxide (22 - 30 mmol/L) 27 Anion Gap (5 - 16) 7 BUN (9 - 20 mg/dL) 5 L Creatinine (0.7 - 1.2 mg/dL) 0.7 Estimated GFR (>60 ml/min) > 60 Glucose (65 - 99 mg/dL) 79 Calcium (8.4 - 10.2 mg/dL) 8.1 L Phosphorus (2.5 - 4.5 mg/dL) 4.5 Magnesium (1.6 - 2.3 mg/dL) 1.4 L Total Bilirubin (0.2 - 1.3 mg/dL) 0.5 Direct Bilirubin (< 0.4 mg/dL) 0.3 AST (17 - 59 U/L) 249 H ALT (21 - 72 U/L) 140 H Alkaline Phosphatase (< 127 U/L) 72 Creatine Kinase (55 - 170 U/L) 2390 H Total Protein (6.3 - 8.2 g/dL) 4.9 L Albumin (3.5 - 5.0 g/dL) 2.5 L Hematology CBC w Diff NO MAN DIFF REQ WBC (4.8 - 10.8 /CUMM) 4.5 L RBC (4.70 - 6.10 /CUMM) 3.48 L Hgb (14.0 - 18.0 G/DL) 12.0 L Hct (42 - 52 %) 35.4 L MCV (80.0 - 94.0 FL) 101.7 H MCH (27.0 - 31.0 PG) 34.5 H RDW (11.5 - 14.5 %) 13.4 Plt Count (130 - 400 /CUMM) 120 L MPV (7.4 - 10.4 FL) 8.8 Gran % (42.2 - 75.2 %) 50.3 Lymphocytes % (20.5 - 51.1 %) 32.7 Monocytes % (1.7 - 9.3 %) 10.9 H Eosinophils % (0 - 5 %) 5.4 H Basophils % (0.0 - 2.0 %) 0.7 Absolute Granulocytes (1.4 - 6.5 /CUMM) 2.3 Absolute Lymphocytes (1.2 - 3.4 /CUMM) 1.5 Absolute Monocytes (0.10 - 0.60 /CUMM) 0.5 Absolute Eosinophils (0.0 - 0.7 /CUMM) 0.2 Absolute Basophils (0.0 - 0.2 /CUMM) 0 PUBS MCHC (33.0 - 37.0 G/DL) 33.9 Imaging Results: left hydronephrosis on renal US. UPJO on CT scan. Assessment/Plan Assessment/Plan 40yo male with hx of seizures, anxiety, drug use with incidentally noted left hydronehprosis on workup when patient was unable to provide hx. He has had this UPJO on the left side for some time and has had Urologic intervention at [facility]. No need for further intervention at this time. He will continue to follow up with his Urologist for this issue. No acute issues. Consult Acknowledgment - Thank you for your consult request.
--- NOTE | 2016-07-09 14:35 | NUR ---
Referral received on 07/07/16 with acute coronary syndrome in the setting of polysubstance use. [facility] of ETOH Withdrawal. Throughout Harjinder's hospitalization, there has been significant fluctuation in the symptoms he has has been experiencing, but there also has been concern that by history, patient had been home ill with vomitting and was not maintaing prescribed methadone dose. Today, patient is markedly clearer; alert, engaged in interview and remorseful about circumstances which led to his hospitalization. Derick accurately reports that he has been receiving his methadone from the [facility] in [place] , "for years" and has earned the "take home" priviledge, so he only reports there once a week. About seeking treatmetn specifically for ETOH Dependence, he says "I'm not going to drink again", and reporting that he is not interested in resources or referrals. Case had been discussed with Tee Perry APRN of psychiatry, who was hopeful patient would agree to IOP level of care. Harjinder would not be eligible for our IOP due to his methadone, but he was reminded of programs at [facility] in [place] (where he gets his methadone), as well as [facility] here in [place] (for which he was given written information). Please call if other social work needs arise.
[2016-07-10] VITALS: BP 120/70
[2016-07-10 00:16] VITALS: BP 120/70
[2016-07-10 02:00] VITALS: BP 120/70
[2016-07-10 03:54] VITALS: BP 120/60
[2016-07-10 04:00] VITALS: BP 120/60
[2016-07-10 06:00] VITALS: BP 120/60
[2016-07-10 07:59] LABS: ABSOLUTE BASOPHIL COUNT 0 /CUMM (0.0-0.2); ABSOLUTE EOSINOPHIL COUNT 0.3 /CUMM (0.0-0.7); ABSOLUTE GRANULOCYTE CT 2.8 /CUMM (1.4-6.5); ABSOLUTE LYMPH COUNT 1.3 /CUMM (1.2-3.4); ABSOLUTE MONOCYTE COUNT 0.6 /CUMM (0.10-0.60); BASOPHIL % 0.6 % (0.0-2.0); EOSINOPHIL % 5.2 % (0-5); GRANULOCYTE % 56.2 % (42.2-75.2); HEMATOCRIT 40.2 % (42-52); MEAN CORPUSCULAR HGB 34.8 PG (27.0-31.0); MEAN CORPUSCULAR HGB CONC 34.6 G/DL (33.0-37.0); MEAN CORPUSCULAR VOLUME 100.6 FL (80.0-94.0); MEAN PLATELET VOLUME 9.4 FL (7.4-10.4); PLATELET COUNT 162 /CUMM (130-400); RBC DISTRIBUTION WIDTH 13.5 % (11.5-14.5); WHITE BLOOD CELL COUNT 5.1 /CUMM (4.8-10.8)
[2016-07-10] MEDS ORDERED: ASPIRIN81 M4 PO (08:50)
[2016-07-10] MEDS ORDERED: ONE DAILY MULT1 EAC2 PO (08:50)
[2016-07-10] MEDS ORDERED: VITAMIN B-150 M1 PO (08:50)
[2016-07-10] MEDS ORDERED: FOLIC ACID1 M1 PO (08:50)
--- NOTE | 2016-07-10 08:52 | Patient Discharge Instructions ---
Discharge Instructions General Discharge Information You were seen/treated for: post traumatic seizures Special Instructions: please f/u with IOP for alcohol detox please obtain help if you need for your detox PLEASE DO NOT DRIVE FOR 3 MONTHS PLEASE F/U WITH [facility] AND [facility] NEUROLOGY PLEASE C/W MADELIN DO NOT TAKE ANY BENZODIAZEPENES Acute Coronary Syndrome Inclusion Criteria At DC or during hospital stay patient has or had the following: ACS DIAGNOSIS No Discharge Core Measures Meds if any: Prescribed or Continued at Discharge Aspirin Yes Meds if any: NOT Prescribed or Continued at Discharge Congestive Heart Failure Inclusion Criteria At DC or during hospital stay patient has or had the following: CHF DIAGNOSIS No Discharge Core Measures Meds if any: Prescribed or Continued at Discharge Meds if any: NOT Prescribed or Continued at Discharge Cerebrovascular accident Inclusion Criteria At DC or during hospital stay patient has or had the following: CVA/TIA Diagnosis No Discharge Core Measures Meds if any: Prescribed or Continued at Discharge Meds if any: NOT Prescribed or Continued at Discharge Venous thromboembolism Inclusion Criteria VTE Diagnosis No VTE Type NONE VTE Confirmed by (Test) NONE Discharge Core Measures - Per Current guidelines, there needs to be overlap - treatment for the first 5 days of Warfarin therapy. - If discharged on Warfarin prior to 5 days of - overlap therapy, the patient will need to be - assessed for post discharge needs including - *Post discharge parental anticoagulation - *Warfarin and/or parental anticoagulation education - *Follow up date to check INR post discharge At least 5 days overlap therapy as Inpatient No Meds if any: Prescribed or Continued at Discharge Note: Overlap Therapy is Warfarin and Anticoagulant Meds if any: NOT Prescribed or Continued at Discharge
[2016-07-10] MEDS ORDERED: KEPPRA500 M1 PO (08:54)
--- NOTE | 2016-07-10 14:21 | PN- Housestaff ---
Subjective Follow-up For: Rhabdomyolysis Hx of Opiate withdrawal Alcoholic Hepatitis Subjective: Afebrile, saturating well on room air, no acute overnight events reported. Patient denies any current complaint. Patient is stable and will most likely get discharged today Review of Systems Constitutional: Reports: no symptoms. Objective Last 24 Hrs of Vital Signs/I&O Vital Signs Date Time Temp Pulse Resp B/P B/P Pulse O2 O2 Flow FiO2 Mean Ox Delivery Rate 07/10 0800 Room Air 07/10 0600 98.3 71 20 120/60 07/10 0400 98.3 71 20 120/60 07/10 0354 98.3 71 20 120/60 95 Room Air 07/10 0200 98.7 67 20 120/70 07/10 0016 98.7 67 20 120/70 95 Room Air 07/10 0000 98.7 67 20 120/70 07/09 2058 98.4 73 20 112/76 97 Room Air Intake & Output 07/10 1600 07/10 0800 07/10 0000 Intake Total 500 200 Output Total Balance 500 200 Intake, Oral 500 200 Physical Exam General Appearance: Alert, Oriented X3, Cooperative, No Acute Distress Skin: No Rashes HEENT: Atraumatic, PERRLA, EOMI Cardiovascular: Regular Rate, Normal S1, Normal S2, No Murmurs Lungs: Clear to Auscultation, Normal Air Movement Abdomen: Normal Bowel Sounds, Soft, No Tenderness Neurological: Normal Speech Extremities: No Clubbing, No Cyanosis, No Edema Current Medications: Current Medications Sig/Libertad Start time Last Medication Dose Route Stop Time Status Admin Aspirin 81 MG DAILY 07/05 1000 DCD 07/10 PO 0907 Folic Acid 1 MG DAILY 07/08 1000 DCD 07/10 PO 0907 Gabapentin 300 MG TID 07/05 1600 DCD 07/10 PO 0907 Levetiracetam 500 MG BID 07/08 2200 DCD 07/10 PO 0907 Magnesium Oxide 400 MG DAILY 07/08 1000 DCD 07/10 PO 0906 Methadone HCl 150 MG DAILY 07/07 1000 DCD 07/10 PO 0908 Multivitamins 1 TAB DAILY 07/08 1000 DCD 07/10 PO 0906 Nicotine 14 MG DAILY 07/06 1103 DCD 07/10 TOP 0915 Patient Medication 1 ED .STK-MED ONE 07/10 1337 OK Teaching ED 07/10 1338 Thiamine HCl 50 MG DAILY 07/08 1000 DCD 07/10 PO 0906 Last 24 Hrs of Lab/Jon Results Last 24 Hrs of Labs/Mics: Laboratory Tests 07/10/16 1029: Anion Gap 10, Estimated GFR > 60, BUN/Creatinine Ratio 17.0 07/10/16 0645: Anion Gap 8, Estimated GFR > 60, BUN/Creatinine Ratio 13.0, CBC w Diff NO MAN DIFF REQ, RBC 4.00 L, MCV 100.6 H, MCH 34.8 H, RDW 13.5, MPV 9.4, Gran % 56.2 , Lymphocytes % 25.8, Monocytes % 12.2 H, Eosinophils % 5.2 H, Basophils % 0.6 , Absolute Granulocytes 2.8, Absolute Lymphocytes 1.3, Absolute Monocytes 0.6, Absolute Eosinophils 0.3, Absolute Basophils 0, PUBS MCHC 34.6 Assessment/Plan Assessment: Mr Alexander is a 40 year old male with PMH of 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 Rhabdomyolysis Hx of Opiate withdrawal Alcoholic Hepatitis #Demand ischemia On admission patient had a troponin, 0.77-->1.39 --> 1.52-->0.92-->0.17.Initial EKG showed T wave inversions in II, III, aVF. Repeat EKG's have been WNL. Cardiology consult was obtained. EKG changes to demand ischemia. An echocardiogram has been performed. Normal left ventricular ejection fraction estimated at 55-60%. #Rhabdomyolysis Initial CPK done at the time of admission was 2379 trended up to above 32,000. Patient was aggressively hydrated. Urione output monitored. CPK today: 2390. AST (249) and ALT (140) were elevated. Likely due to alcoholic hepatitis. While admitted the patient was on a CIWA and needed an Ativan drip. Over the last 24 hours his CIWA trended down. He is currently off Ativan. Currently on a CIWA protocol. Scores: 0,0,0,0,0,0. May consider PO Ativan if warranted. #Seizure Patient was started on IV Kepra after a neurology consult was obtained. Continue PO Kepra 500 mg BID. The patient does follow-up with methadone clinic. Their phone number is [phone]. I spoke with them this morning and confirmed the patient's methadone dose of 150 mg daily. He receives these on a one-time window dose followed by 6 doses for the rest of the week. EEG completed. No focal abnormalities found. Will defer to neurology to assess need for anti seizure. Continue Methadone 150 mg daily. Diet Mechanical soft. DVT Prophylaxis ALPS Code Status Full Code Problem List: 1. Rhabdomyolysis Pain Ratin Pain Location: na Pain Goal: Remain pain free Pain Plan: See A&P Tomorrow's Labs & Rationales: none
--- NOTE | 2016-07-10 14:21 | Discharge Summary ---
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 #Seizure Patient was started on IV Kepra after a neurology consult was obtained. He was then switched to PO Kepra 500 mg BID. EEG was done and No focal abnormalities found. As per neurology patient was discharge on the same dose of Kepra and was instructed to follow with neurology post discharge. #Methadone use The patient does follow with methadone clinic, we confirmed the patient's methadone dose of 150 mg daily, he was started on the same dose during this admission. #Demand ischemia On admission patient had a troponin, 0.77-->1.39 --> 1.52-->0.92-->0.17.Initial EKG showed T wave inversions in II, III, aVF. Repeat EKG's was normal. Cardiology consult was obtained. EKG changes most likely demand ischemia. An echocardiogram has been performed. Normal left ventricular ejection fraction estimated at 55-60%. patient must follow with cardiology as an outpatient #Rhabdomyolysis Initial CPK done at the time of admission was 2379 trended up to above 32,000. Patient was aggressively hydrated. Urine output was monitored. CPK then went down to 2390. #Alcoholic abuse and transaminitis On admission AST (249) and ALT (140), likely 2/2 alcoholic hepatitis. Patient was on a CIWA, initially he required Ativan drip. He was then placed on oral ativan as per CIWA protocol. patient was supplied with folic acid, thiamine, and multivitamin. Allergies: Coded Allergies: NO KNOWN ALLERGIES (02/20/15) Disposition Summary Disposition Principal Diagnosis: Posttraumatic epilepsy Rhabdomyolysis Additional Diagnosis: ETOH hepatitis. Discharge Disposition: home or self care Discharge Instructions General Discharge Information Code Status: Full Code Patient's Diet: Regular as tolerated Patient's Activity: As tolerated Follow-Up Instructions/Appts: Please f/u with IOP for alcohol detox please obtain help if you need for your detox PLEASE DO NOT DRIVE FOR 3 MONTHS PLEASE F/U WITH [facility] AND [facility] NEUROLOGY PLEASE C/W KEPPRA DO NOT TAKE ANY BENZODIAZEPENES please follow up with cardiology Medications at Discharge Discharge Medications: Stop taking the following medications: Doxycycline (Vibramycin 100 MG Cap) 100 MG CAP ORAL TWICE DAILY Qty = 20 Continue taking these medications: Mupirocin (Bactroban) 2% OIN 1 Application On the skin THREE TIMES DAILY Qty = 1 Gabapentin (Gabapentin) 300 MG CAPSULE 1 Capsule ORAL THREE TIMES DAILY Qty = 180 Comments: Last Taken:07/10/16 Time:09 Buspirone HCl (Buspirone HCl) 15 MG TABLET 1 Tablet ORAL TWICE DAILY Qty = 60 Comments: Last Taken:NOT TAKEN IN HOSPITAL Time: Escitalopram Oxalate (Escitalopram Oxalate) 20 MG TABLET 1 Tablet ORAL DAILY Qty = 30 Comments: Last Taken:NOT TAKEN IN HOSPITAL Time: Methadone HCl (Methadone HCl) 5 MG TABLET 140 Milligram ORAL Every Day Comments: Last Taken:07/10/16 Time:907 Start taking the following new medications: Folic Acid (Folic Acid) 1 MG TABLET 1 Milligram ORAL DAILY Qty = 30 No Refills Comments: Last Taken:07/10/16 Time:906 Thiamine HCl (Vitamin B-1) 50 MG TABLET 50 Milligram ORAL DAILY Qty = 30 No Refills Comments: Last Taken:07/10/16 Time:905 Multivitamin (One Daily Multivitamin) 1 EACH TABLET 1 Tablet ORAL DAILY Qty = 30 No Refills Comments: Last Taken:07/10/16 Time:905 Levetiracetam (Keppra) 500 MG TABLET 500 Milligram ORAL TWICE DAILY Qty = 30 No Refills Comments: Last Taken:07/10/16 Time:906 Copies To: ROGRE MARQUEZ,Domo ANN; ASCENCION MARQUEZ,ANITA Sr; JANNA MARQUEZ,JIMI Hardwick
== END 2016-07-10 12:33 | DRG 773 ==
LOC: ENRESERVTM → ENRESERVDT → ERH 14:10 → CRI 19:01 → ERHI 19:01 → CRI 21:16 → 2NA 07-09 15:26 → ENPENDDIS 07-10 10:49 → 2NA 07-10 12:33
PROVIDERS: Ophthalmology; Physician Assistant; Student in an Organized Health Care Education/Training Program; ADMIT Internal Medicine
DX: F10.239 Alcohol dependence with withdrawal, unspecified (principal); G92 Toxic encephalopathy; I24.8 Other forms of acute ischemic heart disease; M62.82 Rhabdomyolysis; E87.2 Acidosis; D69.59 Other secondary thrombocytopenia; N13.30 Unspecified hydronephrosis; K70.10 Alcoholic hepatitis without ascites; F41.9 Anxiety disorder, unspecified; F32.9 Major depressive disorder, single episode, unspecified; F11.23 Opioid dependence with withdrawal; E87.6 Hypokalemia; F17.200 Nicotine dependence, unspecified, uncomplicated; Z87.820 Personal history of traumatic brain injury
CPT/HCPCS: 2NASP; CCU; 36415; 74176; 76775; 80307; 81001; 82436; 87040; 87086; 87389; 93005; 93010; 93306; 95816; 96361; 96374; 96375; 99232; 99291; G0480; J0696; J1200; J1650; J1953; J2060; J3370; J3490; J7040; J7060

== ENCOUNTER 2016-07-27 22:12 | Emergency (ER) | payer OTHER ==
[~2016-07-27] VITALS: Ht 182.9 cm; Wt 65.8 kg
[~2016-07-27 22:12] MED LIST changes: +ASPIRIN81 M4 PO; +BUSPIRONE HCL15 M1 PO; +ESCITALOPRAM OX20 MG PO; +FOLIC ACID1 M1 PO; +GABAPENTIN300 M2 PO; +KEPPRA500 M1 PO; +METHADONE HCL5 MG PO; +ONE DAILY MULT1 EAC2 PO; +VITAMIN B-150 M1 PO
--- NOTE | 2016-07-27 23:31 | ED PSYCHIATRIC COMPLAINT ---
See Addendum History of Present Illness General Chief Complaint: Psychiatric Related Complaint Stated Complaint: ANXIETY Source: patient, old records, friend Exam Limitations: no limitations Allergies Coded Allergies: NO KNOWN ALLERGIES (02/20/15) Reconcile Medications Buspirone HCl 15 MG TABLET 1 TAB PO BID ANXIETY (Reported) Escitalopram Oxalate 20 MG TABLET 1 TAB PO DAILY ANTIDEPRSANT (Reported) Folic Acid 1 MG TABLET 1 MG PO DAILY supplement Gabapentin 300 MG CAPSULE 1 CAP PO TID NERVE PAIN (Reported) Levetiracetam (Keppra) 500 MG TABLET 500 MG PO BID seizures Methadone HCl 5 MG TABLET 140 MG PO D PAIN (Reported) Multivitamin (One Daily Multivitamin) 1 EACH TABLET 1 TAB PO DAILY supplement Mupirocin (Bactroban) 2% OIN 1 BERT TOP TID cellulitis Thiamine HCl (Vitamin B-1) 50 MG TABLET 50 MG PO DAILY supplement Triage Note: PT TO ED FOR WORSENING ANXIETY. DENIES SI/HI. + Triage Nurses Notes Reviewed? yes HPI: Patient is a 40-year-old male presents complaining of severe anxiety. Severe anxiety 1 week. Patient saw his primary doctor on Thursday was placed on BuSpar with no improvement. Patient was on Xanax for 17 years, last dose was just prior to hospitalization in mid June when he the patient was admitted for seizures. Patient had his Neurontin changed to Keppra while he was hospitalized. Patient drank alcohol heavily prior to this hospitalization, has not had alcohol in 3 weeks. Patient smokes cannabis 2-3 times a day. Patient's friend reports that she believes that he is having hallucinations. Patient has been waking up and thinks he is having conversations with people that are not there. Patient has associated chest pain during his anxiety attacks. Last episode was approximately 2 hours ago. Patient denies recent trauma, head injury, suicidal ideation, homicidal ideation. (KVNG MURRAY) Vital Signs & Intake/Output Vital Signs & Intake/Output Vital Signs Date Time Temp Pulse Resp B/P B/P Pulse O2 O2 Flow FiO2 Mean Ox Delivery Rate 07/28 2304 98.1 71 16 118/70 07/28 2301 98.8 89 17 118/70 99 Room Air 07/28 2045 98.1 96 16 128/85 07/28 2045 98.1 96 16 128/85 98 Room Air 05/08 1720 98.4 105 16 112/58 05/08 1720 98.4 105 16 112/58 97 Room Air 05/08 1300 97.4 92 16 126/65 98 Room Air 05/08 1248 97.4 92 16 126/65 05/08 1030 97.0 94 18 126/60 05/08 1028 97.0 94 18 126/60 98 Room Air 05/08 0932 96.9 92 18 133/72 05/08 0931 96.9 92 18 133/72 100 Room Air 05/08 0840 97.1 108 18 120/69 05/08 0839 97.1 108 18 120/69 98 Room Air 05/08 0727 96.9 74 16 112/67 98 Room Air 05/08 0614 97.3 64 18 106/76 100 Room Air /08 0203 97.6 100 18 131/62 96 Room Air ED Intake and Output 07/28 0000 07/27 1200 Intake Total Output Total Balance Patient 145 lb Weight Weight Reported by Patient Measurement Method Past History Travel History Traveled to [place] past 21 day No Medical History Any Pertinent Medical History? see below for history Neurological: seizure, SEIZURES TBI EENT: NONE Cardiovascular: NONE Respiratory: NONE Gastrointestinal: NONE Hepatic: NONE Renal: UPJO Musculoskeletal: NONE Psychiatric: anxiety, substance abuse, CHRONIC PAIN Endocrine: NONE PREPLEATER/Reproductive: NONE Other Medical Hx: drug abuse History of MRSA: No History of VRE: No History of CDIFF: No Surgical History Surgical History: non-contributory Psychosocial History Who do you live with Family Services at Home None What is your primary language Frisian Tobacco Use: Never used ETOH Use: denies use Illicit Drug Use: denies illicit drug use Family History Hx Contributory? No (KVNG MURRAY) Review of Systems Review of Systems Constitutional: Denies: chills, fever. EENTM: Reports: no symptoms. Respiratory: Denies: cough, short of breath. Cardiovascular: Reports: chest pain. GI: Denies: abdominal pain, vomiting. Genitourinary: Reports: no symptoms. Musculoskeletal: Reports: no symptoms. Skin: Reports: no symptoms. Neurological/Psychological: Reports: see HPI. Hematologic/Endocrine: Reports: no symptoms. Immunologic/Allergic: Reports: no symptoms. (KVNG MURRAY) Physical Exam Physical Exam General Appearance: alert, awake, anxious Head: atraumatic, normal appearance Eyes: Bilateral: normal appearance, PERRL, EOMI. Ears, Nose, Throat: normal pharynx, normal ENT inspection, hearing grossly normal Neck: normal inspection, supple, full range of motion Respiratory: normal breath sounds, chest non-tender, no respiratory distress, lungs clear Cardiovascular: tachycardia, regular rhythm Gastrointestinal: normal bowel sounds, soft, non-tender Extremities: normal range of motion Neurological/Psychiatric: no motor/sensory deficits, awake, alert, anxious Appearance/Memory/Insight: disheveled Behavoir/Eye Contact/Speech: increased rate of speech Skin: warm/dry SAD PERSONS Done? patient not suicidal (JENNIFER LOMBARDI,KVNG) Progress Differential Diagnosis: drug intoxication, drug overdose, drug withdrawal, ANXIETY, DEPRESSION, SEIZURES, PSYCHOSIS, ALCOHOL WITHDRAWAL Plan of Care: Orders Procedure Date/time Status Regular Diet 07/28 B Active ED CRISIS PSYCH CONSULT 07/28 1619 Active CIWA 07/28 0816 Active EKG 07/28 0800 Active TROPONIN LEVEL 07/28 0600 Complete EKG 07/28 0600 Active EKG 07/28 0008 Active URINE DRUGS OF ABUSE 07/27 232 Complete TROPONIN LEVEL 07/27 2326 Complete ETHANOL 07/27 2326 Complete COMPREHENSIVE METABOLIC PANEL 07/27 232 Complete CBC WITHOUT DIFFERENTIAL 07/27 232 Complete EKG 07/27 232 Active Current Medications Sig/Libertad Start time Last Medication Dose Stop Time Status Admin Carbamazepine 200 MG BID 07/28 2200 UNVr 07/28 (Tegretol) 2052 Levetiracetam 500 MG BID 07/28 1000 UNVr 07/28 (Keppra) 1002 Laboratory Tests 07/28/16 0635: Troponin I < 0.01 07/28/16 0030: Urine Opiates Screen < 100.00, Methadone Screen > 735 H, Barbiturate Screen < 60, Ur Phencyclidine Scrn < 6.00, Amphetamines Screen < 100, U Benzodiazepines Scrn < 85, Urine Cocaine Screen < 50, Urine Cannabis Screen > 80.00 H 07/27/16 2334: Anion Gap 13, Estimated GFR > 60, BUN/Creatinine Ratio 12.2, Glucose 79, Calcium 9.5, Total Bilirubin 0.6, AST 33, ALT 56, Alkaline Phosphatase 72, Troponin I < 0.01, Total Protein 7.1, Albumin 4.4, Globulin 2.7, Albumin/Globulin Ratio 1.6, CBC w Diff NO MAN DIFF REQ, RBC 4.17 L, MCV 99.6 H, MCH 33.6 H, RDW 12.6, MPV 9.1, Gran % 74.3, Lymphocytes % 14.8 L, Monocytes % 9.0, Eosinophils % 1.4, Basophils % 0.5, Absolute Granulocytes 6.1, Absolute Lymphocytes 1.2, Absolute Monocytes 0.7 H, Absolute Eosinophils 0.1, Absolute Basophils 0, PUBS MCHC 33.8 , Serum Alcohol < 10.0 07/28/2016 7:15:35 AM Patient signed out to me by Dr. Wei. Pending crisis evaluation and disposition. 07/28/2016 7:08:57 PM The patient was monitored on shift and does not appear to be in alcohol withdrawal. He was evaluated by crisis. They recommended Tegretol twice a day as well as methadone dosing and able reevaluate him tomorrow for possible discharge home and follow-up with psychiatry. (WILMA SAHNI MD) Initial ED EKG: NSR 83 BPM, SIGNIFIANCT ARTIFACT, NO APPARENT ACUTE ST/T WAVE CHANGES FROM PREVIOUS EKG Prior EKG: unchanged Hand-Off Endorsed To: HASMUKH WEI MD Endorsed Time: 41 Pending: consult (CRISIS) (KVNG MURRAY) Initial ED EKG: normal axis, normal intervals, normal p-waves, normal QRS complex, normal sinus rhythm Hand-Off Endorsed To: WILMA SAHNI MD (HASMUKH WEI MD) Repeat EKG: changed (NSR) Hand-Off Endorsed To: BASSEM JIMÉNEZ MD Endorsed Time: 190 Pending: consult (CRISIS REEVALUATION) (WILMA SAHNI MD) Hand-Off Endorsed To: WILLIE STALEY DO Endorsed Time: 99 Pending: consult (BASSEM JIMÉNEZ MD) Departure Departure Disposition: STILL A PATIENT Condition: Stable Clinical Impression Primary Impression: Anxiety Referrals: JIMI SALDIVAR MD (PCP/Family) Departure Forms: Customer Survey General Discharge Information (KVNG MURRAY) PA/BATTERY INSPECTOR Co-Sign Statement Statement: ED Attending supervision documentation- [] I saw and evaluated the patient. I have also reviewed all the pertinent lab results and diagnostic results. I agree with the findings and the plan of care as documented in the PA's/BATTERY INSPECTOR's documentation. x[] I have reviewed the ED Record and agree with the PA's/BATTERY INSPECTOR's documentation. [] Additions or exceptions (if any) to the PAs/BATTERY INSPECTOR's note and plan are summarized below: [] (YOAV MARQUEZ,HASMUKH Da Silva)
[2016-07-27 23:50] LABS: ABSOLUTE BASOPHIL COUNT 0 /CUMM (0.0-0.2); ABSOLUTE EOSINOPHIL COUNT 0.1 /CUMM (0.0-0.7); ABSOLUTE GRANULOCYTE CT 6.1 /CUMM (1.4-6.5); ABSOLUTE LYMPH COUNT 1.2 /CUMM (1.2-3.4); ABSOLUTE MONOCYTE COUNT 0.7 /CUMM (0.10-0.60); BASOPHIL % 0.5 % (0.0-2.0); EOSINOPHIL % 1.4 % (0-5); GRANULOCYTE % 74.3 % (42.2-75.2); HEMATOCRIT 41.5 % (42-52); MEAN CORPUSCULAR HGB 33.6 PG (27.0-31.0); MEAN CORPUSCULAR HGB CONC 33.8 G/DL (33.0-37.0); MEAN CORPUSCULAR VOLUME 99.6 FL (80.0-94.0); MEAN PLATELET VOLUME 9.1 FL (7.4-10.4); PLATELET COUNT 166 /CUMM (130-400); RBC DISTRIBUTION WIDTH 12.6 % (11.5-14.5); RED BLOOD CELL CT 4.17 /CUMM (4.70-6.10); WHITE BLOOD CELL COUNT 8.2 /CUMM (4.8-10.8)
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
[2016-07-29 15:54] VITALS: BP 134/84
--- NOTE | 2016-07-29 16:05 | ED PSY CRISIS COLLATERAL NOTE ---
Collateral Note Collateral Note Family/Inform/Jammie Contacts: AZIZA Cruz :This chart writer left voicemail for IOP referral and to confirm they take methadone pts.
[2016-07-29] MEDS ORDERED: TEGRETOL XR200 M1 PO (16:44)
[2016-07-29] MEDS ORDERED: NEURONTIN300 M1 PO (16:44)
== END 2016-07-29 17:57 ==
LOC: ERH 22:12
PROVIDERS: Physician Assistant
DX: F41.9 Anxiety disorder, unspecified (principal)
CPT/HCPCS: 80307; 93005; 93010; G0463; G0480

== ENCOUNTER 2016-09-24 10:47 | Inpatient (IN) | payer OTHER ==
[~2016-09-24] VITALS: Ht 185.4 cm; Wt 77.1 kg
[~2016-09-24 10:47] MED LIST changes: +NEURONTIN300 M1 PO; +TEGRETOL XR200 M1 PO
--- NOTE | 2016-09-24 10:50 | ED AMS/SEIZURE/WEAK/DIZZY ---
History of Present Illness General Chief Complaint: Seizure Stated Complaint: BIBA SEIZURE Source: patient, old records, EMS Exam Limitations: no limitations Allergies Coded Allergies: NO KNOWN ALLERGIES (02/20/15) Triage Nurses Notes Reviewed? 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 The history is limited secondary to patient condition post ictal. drinks etoh daily, last drink was a few beers and whiskey yesterday. no history of DT's etoh withdrawal seizures. pts friend found him seizing today. he denies to any other drug use. He is on methadone. history is limited as pt had second seizure druing evaluation. (LILIANE LOMBARDI,REESE) Reconcile Medications Buspirone HCl 15 MG TABLET 1 TAB PO BID ANXIETY (Reported) Carbamazepine 300 MG CPMP.12HR 1 CAP PO BID SEIZURE Folic Acid 1 MG TABLET 1 MG PO DAILY supplement Gabapentin (Neurontin) 300 MG CAPSULE 1 CAP PO TID PRN ANXIETY Methadone HCl 5 MG TABLET 140 MG PO D PAIN (Reported) Multivitamin (One Daily Multivitamin) 1 EACH TABLET 1 TAB PO DAILY supplement Thiamine HCl (Vitamin B-1) 50 MG TABLET 50 MG PO DAILY supplement (JESSY MARQUEZ,BASSEM Ba) Vital Signs & Intake/Output Vital Signs & Intake/Output Vital Signs Date Time Temp Pulse Resp B/P B/P Pulse O2 O2 Flow FiO2 Mean Ox Delivery Rate 09/25 1447 98.9 81 18 120/82 97 Room Air 07/06 0600 78 /06 0535 98.2 83 20 116/72 98 07/06 0400 86 07/06 0200 76 07/06 0000 69 18 120/60 07/05 2318 98.1 71 16 120/60 97 07/05 2200 72 07/05 2000 78 ED Intake and Output 07/06 0000 07/05 1200 Intake Total 3515 Output Total 2250 Balance 1265 Intake, IV 3115 Intake, Oral 400 Output, Urine 2250 Patient 170 lb 145 lb Weight Weight Reported by Patient Measurement Method Past History Medical History Any Pertinent Medical History? see below for history Neurological: seizure, SEIZURES TBI EENT: NONE Cardiovascular: NONE Respiratory: NONE Gastrointestinal: NONE Hepatic: NONE Renal: UPJO Musculoskeletal: NONE Psychiatric: anxiety, CHRONIC PAIN 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 No (REESE FLOWERS) Travel History Traveled to [place] past 21 day No Medical History Any Pertinent Medical History? none Neurological: seizure EENT: NONE Psychiatric: alcohol dependence, anxiety, opioid dependence, substance abuse (NADYA LAGUNA MD) Review of Systems Review of Systems Constitutional: Reports: see HPI. All Other Systems: Reviewed and Negative Comments Review of systems: limited secondary to patient condition (REESE FLOWERS) Review of Systems Constitutional: Denies: no symptoms. EENTM: Denies: no symptoms. Respiratory: Denies: no symptoms. Cardiovascular: Denies: no symptoms. Genitourinary: Denies: no symptoms. (NADYA LAGUNA MD) Physical Exam Physical Exam Comments: post ictal male in no acute distress HEENT: Normal EENT exam; PERRL, EOMI, no nystagmus. HEAD is atraumatic. moist mucous membranes. no tongue laceration Neck: Supple, normal range of motion Back: Nontender, Full range of motion Cardiovascular: Regular rate and rhythms no murmurs rubs Respiratory: No respiratory distress. Patient speaking in full complete sentences. Breath sounds clear to auscultation bilaterally: NO W/R/R Abdomen: Soft, nontender nondistended, Extremity: No edema, full range of motion of extremities, normal and equal pulses bilaterally, 5 out of 5 strength noted to bilateral upper and lower extremities Neuro:post ictal, patellar/tricep reflexes normal motor sensory normal, There were no obvious focal neurologic abnormalities. Skin: diaphoretic, No appreciable rash on exposed skin, skin is warm Psych: Mood and affect is normal, memory and judgment is normal. Core Measures ACS in differential dx? No CVA/TIA Diagnosis: No Severe Sepsis Present: No (REESE FLOWERS) Core Measures Septic Shock Present: No (JESSY MARQUEZ,BASSEM Ba) Physical Exam General Appearance: well developed/nourished, no apparent distress, sedated, lethargic (JASE MARQUEZ,[facility]) Progress Differential Diagnosis: alcohol intoxication, anemia, dehydration, drug intoxication, encephalitis, electrolyte imbalance, hypoglycemia, intracranial Hem., intracranial mass/tumor, meningitis, seizure disorder, subarachnoid Hem., vertebrobasilar insuff Diagnostic Imaging: Viewed by Me: CT Scan. Discussed w/RAD: CT Scan. Radiology Impression: PATIENT: REESE LEVINE PRESENT AGE: 40 PATIENT ACCOUNT NO: [id number] : 77 LOCATION: [facility] ORDERING PHYSICIAN: BASSEM JIMÉNEZ MD SERVICE DATE: 09/24/16 EXAM TYPE: CAT - CT HEAD WO IV CONTRAST EXAMINATION: CT HEAD WITHOUT CONTRAST CLINICAL INFORMATION: Status epilepticus COMPARISON: 07/04/2016 TECHNIQUE: Contiguous axial imaging was performed from the skull base to vertex without intravenous administration of contrast. DLP: Findings: Once again chronic change in the right frontal region. No acute finding. No midline shift or mass effect or hemorrhage. 2 sequences were obtained due to motion. The basilar cisterns are patent. The posterior fossa is grossly within normal limits. IMPRESSION: Negative acute noncontrast CT of the brain. Chronic change right frontal region with bony defect. No acute finding. No midline shift or mass effect or hemorrhage. DICTATED BY: WILLIE RAYA MD DATE/TIME DICTATED:09/24/161353 FITNESS COACH:INGE DATE/TIME TRANSCRIBED:09/24/161353 CONFIDENTIAL, DO NOT COPY WITHOUT APPROPRIATE AUTHORIZATION. <Electronically signed in Other Vendor System> SIGNED BY: WILLIE RAYA MD 09/24/16 1400 Initial ED EKG: none (REESE FLOWERS) Differential Diagnosis: drug intoxication, seizure disorder Plan of Care: Orders Procedure Date/time Status Patient Safety Monitor 09/25 1132 Active Transfer patient to 09/25 1024 Active Discharge Patient 09/25 UNK Active MISSING MEDICATION FORM 09/25 UNK Active SOCIAL WORK CONSULT 09/25 UNK Active Current Medications Sig/Libertad Start time Last Medication Dose Stop Time Status Admin Oxcarbazepine 150 MG BID 09/25 2200 CAN (Trileptal 150MG Tab) Laboratory Tests 09/25/16 0650: Anion Gap 13, Estimated GFR > 60, BUN/Creatinine Ratio 13.0, CBC w Diff NO MAN DIFF REQ, RBC 4.09 L, MCV 96.7 H, MCH 33.2 H, RDW 14.4, MPV 8.6, Gran % 70.3, Lymphocytes % 20.0 L, Monocytes % 9.4 H, Eosinophils % 0.1, Basophils % 0.2, Absolute Granulocytes 4.0, Absolute Lymphocytes 1.2, Absolute Monocytes 0.5, Absolute Eosinophils 0, Absolute Basophils 0, PUBS MCHC 34.3 labs ordered, dr jiménez at bedside for eval and agrees with plan, ativan 2mg iv, versed 5mg iv ordered case d/w dr meade -he believes pt had adverse reaction (psychotic features) to keppra and advised against keppra loading. depakote 1gm IV if pt seizues again. will consult 1255 dr meade in dept to eval pt advised to increase to 1.5g depakote iv d/w dr jiménez agrees wt plan 1345 pt more awake, conversive at this time, denies any complaints. Despite patient's elevated lactic acid which I believe is secondary to his seizure activity, patient has no fever no concerning signs of infection at this time. I do not believe the patient is septic d/w dr BAUMANN will admit to tele (REESE FLOWERS) Departure Departure Time of Disposition: 1402 Disposition: STILL A PATIENT Condition: Stable Clinical Impression Primary Impression: Status epilepticus Secondary Impressions: Lactic acidosis Referrals: JANNA MARQUEZ,JIMI Hardwick (PCP/Family) Departure Forms: Customer Survey General Discharge Information Admission Note Spoke With: ZHANNA MARQUEZ,MYLES Way Documentation of Exam: Documentation of any treatments & extenuating circumstances including Concerns Regarding Discharge (functional status, medication knowledge or non-compliance, living conditions, etc.) that warrant an admission rather than observation: Neurology consult trend labs neurochecks telemetry monitoring premature discharge would BE medically harmful (REESE FLOWERS) Departure Prescriptions: Current Visit Scripts Carbamazepine 1 CAP PO BID #60 CAP PA/MORTGAGE LOAN COMPUTATION CLERK Co-Sign Statement Statement: ED Attending supervision documentation- [X] I saw and evaluated the patient. I have also reviewed all the pertinent lab results and diagnostic results. I agree with the findings and the plan of care as documented in the MARIA C's/MORTGAGE LOAN COMPUTATION CLERK's documentation. [X] I have reviewed the ED Record and agree with the PA's/MORTGAGE LOAN COMPUTATION CLERK's documentation. [] Additions or exceptions (if any) to the PAs/MORTGAGE LOAN COMPUTATION CLERK's note and plan are summarized below: [] (JESSY MARQUEZ,BASSEM Ba) Critical Care Note Critical Care Note Critical Care Time: 30-74 min (REESE FLOWERS) (Normal Saline 0.9%) Lorazepam 2 MG Q6 09/24 1800 UNVr (Ativan) Gabapentin 300 MG TID PRN 09/24 1600 AC (Neurontin) Lorazepam 1 MG .[Q1HR] PRN 09/24 1545 UNVr (Ativan) Methadone HCl 150 MG DAILY 09/24 1542 UNVr (Dolophine) Cyanocobalamin/ 1 BAG DAILY 09/24 1537 UNVr 09/24 Thiamine/Pyridoxine 09/26 1759 1659 (Vitamin in I.V.) Sodium Chloride 1,000 ML (Normal Saline 0.9%) Acetaminophen 325 MG Q6 PRN 09/24 1415 AC (Tylenol) Oxycodone HCl 5 MG Q6 PRN 09/24 1415 AC (Roxicodone) Oxycodone/ 2 TAB Q6 PRN 09/24 1415 AC Acetaminophen (Percocet) Enoxaparin Sodium 40 MG DAILY 09/24 1413 AC 09/24 (Lovenox) 1506 Laboratory Tests 09/24/16 1552: Creatine Kinase 586 H, Troponin I 0.06 09/24/16 1544: Lactic Acid Cancelled 09/24/16 1500: Lactic Acid 1.1 09/24/16 1237: Anion Gap 11, Estimated GFR > 60, BUN/Creatinine Ratio 15.6, Glucose 153 H, Calcium 8.3 L 09/24/16 1129: Urine Opiates Screen < 100.00, Methadone Screen > 735 H, Barbiturate Screen < 60, Ur Phencyclidine Scrn 7.00, Amphetamines Screen < 100, U Benzodiazepines Scrn < 85, Urine Cocaine Screen < 50, Urine Cannabis Screen 79.10 H, Urinalysis LIGHT H, Urine Color YEL, Urine Clarity CLEAR, Urine pH 6.0, Ur Specific [place] >= 1.030, Urine Protein 100 H, Urine Ketones 15 H, Urine Nitrite NEG, Urine Bilirubin NEG, Urine Urobilinogen 0.2, Ur Leukocyte Esterase NEG, Ur Microscopic SEDIMENT EXAMINED, Urine RBC 5-10 H, Urine WBC 3-5 H, Ur Epithelial Cells FEW, Urine Bacteria RARE H, Hyaline Casts RARE H, Urine Mucus MOD H, Urine Hemoglobin MOD H, Urine Glucose NEG 09/24/16 1105: Lactic Acid > 24.0 H 09/24/16 1103: Anion Gap 40 H, Estimated GFR > 60, BUN/Creatinine Ratio 11.8, Glucose 194 H, Calcium 10.5 H, Total Bilirubin 0.8, AST 62 H, ALT 29, Alkaline Phosphatase 108, Creatine Kinase 216 H, Total Protein 8.9 H, Albumin 5.6 H, Globulin 3.3, Albumin/Globulin Ratio 1.7, CBC w Diff NO MAN DIFF REQ, RBC 4.90, MCV 101.2 H, MCH 33.1 H, RDW 14.0, MPV 8.4, Gran % 75.8 H, Lymphocytes % 19.3 L, Monocytes % 4.5, Eosinophils % 0.1, Basophils % 0.3, Absolute Granulocytes 9.3 H, Absolute Lymphocytes 2.4, Absolute Monocytes 0.6, Absolute Eosinophils 0, Absolute Basophils 0, PUBS MCHC 32.7 L, Carbamazepine 5.8, Serum Alcohol < 10.0 Microbiology 09/24 1129 URINE ROUT: Urine Culture - RECD labs ordered, dr jiménez at bedside for eval and agrees with plan, ativan 2mg iv, versed 5mg iv ordered case d/w dr meade -he believes pt had adverse reaction (psychotic features) to keppra and advised against keppra loading. depakote 1gm IV if pt seizues again. will consult 1255 dr meade in dept to eval pt advised to increase to 1.5g depakote iv d/w dr jiménez agrees wt plan 1345 pt more awake, conversive at this time, denies any complaints. Despite patient's elevated lactic acid which I believe is secondary to his seizure activity, patient has no fever no concerning signs of infection at this time. I do not believe the patient is septic d/w dr BAUMANN will admit to tele (LILIANE LOMBARDI,REESE) Differential Diagnosis: drug intoxication, seizure disorder (JASE MARQUEZ,NADYA) Departure Departure Time of Disposition: 140 Disposition: STILL A PATIENT Condition: Stable Clinical Impression Primary Impression: Status epilepticus Secondary Impressions: Lactic acidosis Referrals: JANNA MARQUEZ,JIMI Hardwick (PCP/Family) Departure Forms: Customer Survey General Discharge Information Admission Note Spoke With: MYLES CHAO MD Documentation of Exam: Documentation of any treatments & extenuating circumstances including Concerns Regarding Discharge (functional status, medication knowledge or non-compliance, living conditions, etc.) that warrant an admission rather than observation: Neurology consult trend labs neurochecks telemetry monitoring premature discharge would BE medically harmful (REESE FLOWERS) PA/MORTGAGE LOAN COMPUTATION CLERK Co-Sign Statement Statement: ED Attending supervision documentation- [X] I saw and evaluated the patient. I have also reviewed all the pertinent lab results and diagnostic results. I agree with the findings and the plan of care as documented in the PA's/MORTGAGE LOAN COMPUTATION CLERK's documentation. [X] I have reviewed the ED Record and agree with the PA's/MORTGAGE LOAN COMPUTATION CLERK's documentation. [] Additions or exceptions (if any) to the PAs/MORTGAGE LOAN COMPUTATION CLERK's note and plan are summarized below: [] (JESSY MARQUEZ,BASSEM Ba) Critical Care Note Critical Care Note Critical Care Time: 30-74 min (REESE FLOWERS)
--- NOTE | 2016-09-24 11:00 | NUR ---
UPON ASSESSMENT PT BEGAN TO HAVE TONIC CLONIC SEIZURE, PLACED ON NRB, MEDICATED WITH 2MG ATIVAN IVP AND REESE LOMBARDI IMMEDIATELY TO BEDSIDE, SEIZURE PADS PLACED ON STRETCHER ON PATIENTS ARRIVAL DUE TO CC. SEIZURE LASTED APPROX 1 MIN, MAINTAINED 02 SAT'S DURING SEIZURE - PT BECAME POST ICTAL AND COMBATIVE, UNABLE TO REDIRECT AND PLACED IN SOFT WRIST RESTRAINTS FOR PATIENT'S SAFETY. ADDTL 2MG ATIVAN IVP GIVEN FOR CONTINUED AGITATION AND UNABLE TO REDIRECT PATIENT DUE TO POST ICTAL STATE, BG 141 ON ARRIVAL, APPROX 10 MIN AFTER SECOND DOSE OF ATIVAN WAS GIVEN THERE WAS NO CHANGE IN PATIENT'S STATUS, PATIENT CONTINUED TO BE AGITATED, UNDIRECTABLE AND UNRESPONSIVE TO VERBAL COMMANDS. PATIENT WAS THEN MEDICATED WITH 5MG VERSED PER DR JIMÉNEZ. PT IS NOW CALM, OPENING EYES SPONTANEOUSLY BUT NO PURPOSEFUL INTERACTION OR ABLE TO FOLLOW COMMANDS. BRITT PLACED, PT MAINTAINED IN SOFT WRIST RESTRAINED FOR PATIENT'S SAFETY, BILATERAL IV'S PLACED, PLACED ON CARDIAC 02 AND RESP MONITOR, MAINTAINED ON NRB.
[2016-09-24 11:22] LABS: ABSOLUTE BASOPHIL COUNT 0 /CUMM (0.0-0.2); ABSOLUTE EOSINOPHIL COUNT 0 /CUMM (0.0-0.7); ABSOLUTE GRANULOCYTE CT 9.3 /CUMM (1.4-6.5); ABSOLUTE LYMPH COUNT 2.4 /CUMM (1.2-3.4); ABSOLUTE MONOCYTE COUNT 0.6 /CUMM (0.10-0.60); BASOPHIL % 0.3 % (0.0-2.0); EOSINOPHIL % 0.1 % (0-5); GRANULOCYTE % 75.8 % (42.2-75.2); HEMATOCRIT 49.6 % (42-52); MEAN CORPUSCULAR HGB 33.1 PG (27.0-31.0); MEAN CORPUSCULAR HGB CONC 32.7 G/DL (33.0-37.0); MEAN CORPUSCULAR VOLUME 101.2 FL (80.0-94.0); MEAN PLATELET VOLUME 8.4 FL (7.4-10.4); PLATELET COUNT 202 /CUMM (130-400); WHITE BLOOD CELL COUNT 12.2 /CUMM (4.8-10.8)
--- NOTE | 2016-09-24 11:37 | NUR ---
PT BIBA FOR "WITNESSED SEIZURE AT HOME" PT ALERT AND ORIENTED ON ARRIVAL, DOES NOT APPEAR TO BE POST ICTAL, NO LOSS OF B/B, REPORTING HE IS UNSURE OF WHAT HAPPENED THIS MORNING, ENDORSING HE DRANK "APPROX 2 CUPS OF WHISKEY
--- NOTE | 2016-09-24 11:44 | NUR ---
CRITICAL TEST RESULTS [id number] REEES LEVINE 40 M TESTS AND RESULTS: CO 2 = 7 Results received and read back by: KRISHAN ARREOLA Results received date and time: 09/24/16 1144 The following provider was notified of the results, and read the results back: DR JIMÉNEZ/MARIA C MOMIN Notified date and time: 09/24/16 at 1144
--- NOTE | 2016-09-24 12:26 | NUR ---
CRITICAL TEST RESULTS [id number] REESE LEVINE 40 M TESTS AND RESULTS: LACTIC ACID > 24 Results received and read back by: KRISHAN ARREOLA Results received date and time: 09/24/16 1226 The following provider was notified of the results, and read the results back: MARIA C MOMIN Notified date and time: 09/24/16 at 1226
--- NOTE | 2016-09-24 12:50 | NUR ---
DR RAZO AT BEDSIDE.
--- NOTE | 2016-09-24 13:13 | NUR ---
PT TO AND FROM CAT SCAN WITH THIS RN ON MONITOR. PT MORE AWAKE, ALERT. FOLLOWING COMMANDS BETTER. VSS.
--- NOTE | 2016-09-24 13:20 | NUR ---
PHARMACY CALLED FOR DEPACON, WILL CALL WHEN IT IS READY.
--- NOTE | 2016-09-24 13:21 | Cons- Neurology ---
General Information and HPI Consulting Request Date of Consult: 09/24/16 Requested By: Derick Lee Reason for Consult: Two seizures Source of Information: patient, old records Exam Limitations: not alert/orientated, clinical condition, poor historian History of Present Illness: 40/M sent to the ER due to a convulsive seizure this AM with a second seizure witnessed in the ER. treated with Lorazepam 4 mg then Versed 5mg. The patient is post-ictal and difficult to arouse but did say he ran out of beer yesterday. History of TBI, right-sided craniotomy for clot evacuation, post TBI seizures, anxiety, depression and prior substance abuse, currently maintained on methadone , At home takes gabapentin 300 mg 3 times a day which he states he takes for seizures but which the med list describes as being taken for "nerve pain" He believes he is followed neurologically by Dr. Bustamante in the [facility]? In June brought to ER with confusion, several reported seizures and a witnessed seizure in hospital. Was placed on an Ativan drip & Keppra along with the gabapentin and remained seizure free. As an outpatient the Keppra was changed to Carbamazepine due to risk of psychiatric side effects. Allergies/Medications Allergies: Coded Allergies: NO KNOWN ALLERGIES (02/20/15) Home Med List: Buspirone HCl 15 MG TABLET 1 TAB PO BID ANXIETY (Reported) Carbamazepine (Tegretol XR) 200 MG TAB.ER.12H 1 TAB PO BID ANXIETY Folic Acid 1 MG TABLET 1 MG PO DAILY supplement Gabapentin (Neurontin) 300 MG CAPSULE 1 CAP PO TID PRN ANXIETY Levetiracetam (Keppra) 500 MG TABLET 500 MG PO BID seizures Methadone HCl 5 MG TABLET 140 MG PO D PAIN (Reported) Multivitamin (One Daily Multivitamin) 1 EACH TABLET 1 TAB PO DAILY supplement Thiamine HCl (Vitamin B-1) 50 MG TABLET 50 MG PO DAILY supplement Current Medications: Current Medications Sig/Libertad Start time Last Medication Dose Route Stop Time Status Admin Lorazepam 0 .STK-MED ONE 09/24 1117 DC .ROUTE Lorazepam 2 MG ONE ONE 09/24 1115 DC 09/24 IV 09/24 1116 1121 Lorazepam 0 .STK-MED ONE 09/24 1102 DC .ROUTE Lorazepam 2 MG ONE ONE 09/24 1100 DC 09/24 IV 09/24 1101 1121 Midazolam HCl 5 MG ONCE ONE 09/24 1215 DC 07/05 IV 07/ 1216 1208 Midazolam HCl 5 MG ONCE ONE / 1115 DC 07/05 IV / 1116 1121 Sodium Chloride 1,000 ML BOLUS ONE 09/24 1200 DC 07/05 IV 07/05 1259 1240 Sodium Chloride 1,000 ML BOLUS ONE 09/24 1200 DC 07/05 IV 07/05 1259 1153 Sodium Chloride 1,000 ML BOLUS ONE 09/24 1145 DC 07/05 IV 07/ 1244 1148 Valproate Sodium 1,000 MG ONCE ONE 09/24 1315 AC Sodium Chloride 100 ML IV / 1414 Review of Systems Review of Systems: unobtainable due to mental state Past History Travel History Traveled to [place] past 21 day No Medical History Neurological: seizure, TBI EENT: NONE Cardiovascular: NONE Respiratory: NONE Gastrointestinal: NONE Hepatic: NONE Renal: UPJO Musculoskeletal: NONE Psychiatric: anxiety, CHRONIC PAIN 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 self Services at Home: None Primary Language: German ETOH Use: 6 Illicit Drug Use: UTD Functional Ability ADLs Independent: dressing, eating, toileting, bathing. Ambulation: independent IADLs Independent: shopping, housework, finances, food prep, telephone, transportation , medication admin. Exam & Diagnostic Data Vital Signs and I&O Vital Signs Date Time Temp Pulse Resp B/P B/P Pulse O2 O2 Flow FiO2 Mean Ox Delivery Rate 09/24 1237 97.7 100 20 116/72 99 Nasal 2.0L Cannula 09/24 1224 96 20 113/64 97 Nasal 2.0L Cannula 09/24 1153 111 20 125/79 100 Non 100% ReBreather 09/24 1142 99 Non 100% ReBreather 09/24 1120 97.4 123 20 151/93 100 Non 100% ReBreather Intake & Output 09/24 1600 09/24 0800 09/24 0000 Intake Total Output Total Balance Patient 145 lb Weight Physical Exam: Currently calm but in soft wrist restraints, small hematoma in the right temporal area, abrasions on knees, tibial compartments soft. pulses intact, breathing regular Arouses briefly to light stimulation, enough to follow simple commands, but drifts rapidly back to sleep. O to name, not date or location. says only an occasional word. P%ERRL fundi normal EOMI VII symmetric, XII midline, no laceration. mash processing operator equal, moves all 4 extremites purposefully Last 48 Hours of Lab Results: Laboratory Tests 09/24 09/24 09/24 1237 1129 1105 Chemistry Sodium (137 - 145 mmol/L) 137 Potassium (3.5 - 5.1 mmol/L) 4.6 Chloride (98 - 107 mmol/L) 103 Carbon Dioxide (22 - 30 mmol/L) 23 Anion Gap (5 - 16) 11 BUN (9 - 20 mg/dL) 14 Creatinine (0.7 - 1.2 mg/dL) 0.9 Estimated GFR (>60 ml/min) > 60 BUN/Creatinine Ratio (7 - 25 %) 15.6 Glucose (65 - 99 mg/dL) 153 H Lactic Acid (0.7 - 2.1 mmol/L) > 24.0 H Calcium (8.4 - 10.2 mg/dL) 8.3 L Toxicology Urine Opiates Screen (>2000 NG/ML) < 100.00 Methadone Screen (>300 NG/ML) > 735 H Barbiturate Screen (>200 NG/ML) < 60 Ur Phencyclidine Scrn (>25 NG/ML) 7.00 Amphetamines Screen (>1000 NG/ML) < 100 U Benzodiazepines Scrn (>200 NG/ML) < 85 Urine Cocaine Screen (>300 NG/ML) < 50 Urine Cannabis Screen (>50 NG/ML) 79.10 H Urines Urinalysis LIGHT H Urine Color (YEL,AMB,STR) YEL Urine Clarity (CLEAR) CLEAR Urine pH (5.0 - 8.0) 6.0 Ur Specific [place] (1.001 - 1.035) >= 1.030 Urine Protein (NEG,<30 MG/DL) 100 H Urine Ketones (NEG) 15 H Urine Nitrite (NEG) NEG Urine Bilirubin (NEG) NEG Urine Urobilinogen (0.1 - 1.0 EU/dl) 0.2 Ur Leukocyte Esterase (NEG) NEG Ur Microscopic SEDIMENT EXAMINED Urine RBC (0 - 5 /HPF) 5-10 H Urine WBC (0 - 2 /HPF) 3-5 H Ur Epithelial Cells (NONE,FEW) FEW Urine Bacteria (NEG/NONE) RARE H Hyaline Casts (0/LPF) RARE H Urine Mucus (FEW,NONE) MOD H Urine Hemoglobin (NEG) MOD H Urine Glucose (N MG/DL) NEG 09/24 1103 Chemistry Sodium (137 - 145 mmol/L) 145 Potassium (3.5 - 5.1 mmol/L) 3.9 Chloride (98 - 107 mmol/L) 98 Carbon Dioxide (22 - 30 mmol/L) 7 *L Anion Gap (5 - 16) 40 H BUN (9 - 20 mg/dL) 13 Creatinine (0.7 - 1.2 mg/dL) 1.1 Estimated GFR (>60 ml/min) > 60 BUN/Creatinine Ratio (7 - 25 %) 11.8 Glucose (65 - 99 mg/dL) 194 H Calcium (8.4 - 10.2 mg/dL) 10.5 H Total Bilirubin (0.2 - 1.3 mg/dL) 0.8 AST (17 - 59 U/L) 62 H ALT (21 - 72 U/L) 29 Alkaline Phosphatase (< 127 U/L) 108 Creatine Kinase (55 - 170 U/L) 216 H Total Protein (6.3 - 8.2 g/dL) 8.9 H Albumin (3.5 - 5.0 g/dL) 5.6 H Globulin (1.9 - 4.2 gm/dL) 3.3 Albumin/Globulin Ratio (1.1 - 2.2 %) 1.7 Hematology CBC w Diff NO MAN DIFF REQ WBC (4.8 - 10.8 /CUMM) 12.2 H RBC (4.70 - 6.10 /CUMM) 4.90 Hgb (14.0 - 18.0 G/DL) 16.2 Hct (42 - 52 %) 49.6 MCV (80.0 - 94.0 FL) 101.2 H MCH (27.0 - 31.0 PG) 33.1 H RDW (11.5 - 14.5 %) 14.0 Plt Count (130 - 400 /CUMM) 202 MPV (7.4 - 10.4 FL) 8.4 Gran % (42.2 - 75.2 %) 75.8 H Lymphocytes % (20.5 - 51.1 %) 19.3 L Monocytes % (1.7 - 9.3 %) 4.5 Eosinophils % (0 - 5 %) 0.1 Basophils % (0.0 - 2.0 %) 0.3 Absolute Granulocytes (1.4 - 6.5 /CUMM) 9.3 H Absolute Lymphocytes (1.2 - 3.4 /CUMM) 2.4 Absolute Monocytes (0.10 - 0.60 /CUMM) 0.6 Absolute Eosinophils (0.0 - 0.7 /CUMM) 0 Absolute Basophils (0.0 - 0.2 /CUMM) 0 PUBS MCHC (33.0 - 37.0 G/DL) 32.7 L Toxicology Carbamazepine (4.0 - 12.0 ug/mL) 5.8 Serum Alcohol (<10 MG/DL) < 10.0 Imaging/Other Studies: CT head reviewed personally: no evident bleed, right frontal encephalomalacia, official report pending Assessment/Plan Assessment: Seizures, uncertain if ETOH related or independent. At risk for both. Reportedly on Carbamazepine but compliance uncertain. Want to avoid Keppra. Old record suggests prior use of DPH unclear if side effects or ineffective. Recommendations: Carbamazepine level continue CBZ 200 BID once able to take po load IV Valproate 1500 mg now, 750 q12 H EEG Consult Acknowledgment - Thank you for your consult request.
--- NOTE | 2016-09-24 13:45 | NUR ---
PT TAKEN OUT OF B/L UPPER SOFT RESTRAINTS. MORE AWAKE, ALERT, FOLLOWING COMMANDS. SAFETY MONITOR AT BEDSIDE.
--- NOTE | 2016-09-24 14:00 | CT SCAN REPORT ---
EXAMINATION: CT HEAD WITHOUT CONTRAST CLINICAL INFORMATION: Status epilepticus COMPARISON: 07/04/2016 TECHNIQUE: Contiguous axial imaging was performed from the skull base to vertex without intravenous administration of contrast. DLP: Findings: Once again chronic change in the right frontal region. No acute finding. No midline shift or mass effect or hemorrhage. 2 sequences were obtained due to motion. The basilar cisterns are patent. The posterior fossa is grossly within normal limits. IMPRESSION: Negative acute noncontrast CT of the brain. Chronic change right frontal region with bony defect. No acute finding. No midline shift or mass effect or hemorrhage.
--- NOTE | 2016-09-24 14:09 | History & Physical ---
General Information and HPI Source of Information: patient, old records Exam Limitations: not alert/orientated, clinical condition, poor historian Allergies/Medications Allergies: Coded Allergies: NO KNOWN ALLERGIES (02/20/15) Home Med list Buspirone HCl 15 MG TABLET 1 TAB PO BID ANXIETY (Reported) Carbamazepine (Tegretol XR) 200 MG TAB.ER.12H 1 TAB PO BID ANXIETY Folic Acid 1 MG TABLET 1 MG PO DAILY supplement Gabapentin (Neurontin) 300 MG CAPSULE 1 CAP PO TID PRN ANXIETY Levetiracetam (Keppra) 500 MG TABLET 500 MG PO BID seizures Methadone HCl 5 MG TABLET 140 MG PO D PAIN (Reported) Multivitamin (One Daily Multivitamin) 1 EACH TABLET 1 TAB PO DAILY supplement Thiamine HCl (Vitamin B-1) 50 MG TABLET 50 MG PO DAILY supplement Past History Travel History Traveled to [place] past 21 day No Medical History Neurological: seizure, TBI EENT: NONE Cardiovascular: NONE Respiratory: NONE Gastrointestinal: NONE Hepatic: NONE Renal: UPJO Musculoskeletal: NONE Psychiatric: anxiety, CHRONIC PAIN 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 self Services at Home: None Primary Language: Luxembourger ETOH Use: 6 Illicit Drug Use: UTD Functional Ability ADLs Independent: dressing, eating, toileting, bathing. Ambulation: independent IADLs Independent: shopping, housework, finances, food prep, telephone, transportation , medication admin. Core Measures/Miscellaneous Cerebrovascular Accident CVA/TIA Diagnosis: No Sepsis (View Protocol) Severe Sepsis Present: No BC x2: Yes Lactic Acid x2: Yes IV ABX Broad Spectrum: Yes Septic Shock Septic Shock Present: No
--- NOTE | 2016-09-24 14:11 | History & Physical ---
JASE MARQUEZ,NADYA 09/24/16 1411: General Information and HPI MD Statement: I have seen and personally examined REESE LEVINE and documented this H&P. The patient is a 40 year old M who presented with a chief complaint of seizure, patient is sleepy and is barely able to provide history Source of Information: patient, old records Exam Limitations: not alert/orientated, clinical condition, poor historian History of Present Illness: Mr. 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 Patient felt disoriented and sleepy afterwards. The patient reports lower back pain after regaining consciousness, patient reports that he has been compliant with his home meds. Patient denied travel outside [facility] or any hiking trips. He was not having any infection recently . He had another episode of witnessed convulsive seizure in the ER which was treated with 4 mg of Ativan and Versed 5 mg. patient was treated in [facility] in June 2016 for seizures. during that admission he had, several episodes of seizures and was treated with Ativan drip, Keppra and gabapentin. He didn't have any seizure for the past 2 month till the current episode. He is currently on carbamazepine 200 twice a day, gabapentin 300 X 3 times a day which the patient states is for stabilization. He is being followed by Dr. Bustamante at [facility]. Allergies/Medications Allergies: Coded Allergies: NO KNOWN ALLERGIES (02/20/15) Home Med list Buspirone HCl 15 MG TABLET 1 TAB PO BID ANXIETY (Reported) Carbamazepine (Tegretol XR) 200 MG TAB.ER.12H 1 TAB PO BID ANXIETY Folic Acid 1 MG TABLET 1 MG PO DAILY supplement Gabapentin (Neurontin) 300 MG CAPSULE 1 CAP PO TID PRN ANXIETY Levetiracetam (Keppra) 500 MG TABLET 500 MG PO BID seizures Methadone HCl 5 MG TABLET 140 MG PO D PAIN (Reported) Multivitamin (One Daily Multivitamin) 1 EACH TABLET 1 TAB PO DAILY supplement Thiamine HCl (Vitamin B-1) 50 MG TABLET 50 MG PO DAILY supplement Compliance With Home Meds: FAIR Past History Travel History Traveled to [place] past 21 day No Medical History Neurological: seizure, TBI EENT: NONE Cardiovascular: NONE Respiratory: NONE Gastrointestinal: NONE Hepatic: NONE Renal: NONE Musculoskeletal: NONE Psychiatric: anxiety, CHRONIC PAIN 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 Home Who Do You Live With? father Services at Home: None Primary Language: Irish Smoking Status: Current Everyday Smoker (1-1.5 packs/day) ETOH Use: 6 Illicit Drug Use: marijuana Living Will? no Power of Beauty Therapist/HCP? usure due to his sedation (need to be verified) Name of POA/HCP: need to be verified Functional Ability ADLs Independent: dressing, eating, toileting, bathing. Ambulation: independent IADLs Independent: shopping, housework, finances, food prep, telephone, transportation , medication admin. Sexual History Sexually Active No (currently not sexually active) # of partners 6 (during the last year) Sexual Orientation Heterosexual Use of Protection Yes Always Review of Systems Review of Systems Constitutional: Denies: no symptoms. Exam & Diagnostic Data Last 24 Hrs of Vital Signs/I&O Vital Signs Date Time Temp Pulse Resp B/P B/P Pulse O2 O2 Flow FiO2 Mean Ox Delivery Rate 09/24 1706 99.0 88 20 134/81 99 Room Air 09/24 1525 98.9 87 20 122/68 100 Nasal 2.0L Cannula 09/24 1504 94 20 138/77 100 Room Air 07 1432 98.8 94 20 116/71 98 Nasal 2.0L Cannula 09/24 1340 87 20 137/73 100 Nasal 2.0L Cannula 09/24 1314 92 20 126/73 99 Nasal 2.0L Cannula 09/24 1237 97.7 100 20 116/72 99 Nasal 2.0L Cannula 09/24 1224 96 20 113/64 97 Nasal 2.0L Cannula 09/24 1153 111 20 125/79 100 Non 100% ReBreather 09/24 1142 99 Non 100% ReBreather 09/24 1120 97.4 123 20 151/93 100 Non 100% ReBreather Intake & Output 09/24 1600 07 0800 07 0000 Intake Total 3000 Output Total Balance 3000 Intake, IV 3000 Patient 145 lb Weight Physical Exam General Appearance drowsy and sedated Skin abrasions on the forearm and knees Skin Temp/Moisture Exam: Warm/Dry Sepsis Skin Exam (color): Normal for Ethnicity HEENT PERRLA, EOMI, Mucous Membr. moist/pink, right temporal area bruise Neck Supple, No JVD Cardiovascular Regular Rate, Normal S1, Normal S2, No Murmurs Lungs Clear to Auscultation, Normal Air Movement Abdomen Normal Bowel Sounds, Soft, No Tenderness Neurological difficult to be assessed as patient is too sleepy to follow orders Extremities No Edema, No Tenderness/Swelling Last 24 Hrs of Labs/Jon: Laboratory Tests 09/24/16 1552: Creatine Kinase 586 H, Troponin I 0.06 09/24/16 1544: Lactic Acid Cancelled 09/24/16 1500: Lactic Acid 1.1 09/24/16 1237: Anion Gap 11, Estimated GFR > 60, BUN/Creatinine Ratio 15.6, Glucose 153 H, Calcium 8.3 L 09/24/16 1129: Urine Opiates Screen < 100.00, Methadone Screen > 735 H, Barbiturate Screen < 60, Ur Phencyclidine Scrn 7.00, Amphetamines Screen < 100, U Benzodiazepines Scrn < 85, Urine Cocaine Screen < 50, Urine Cannabis Screen 79.10 H, Urinalysis LIGHT H, Urine Color YEL, Urine Clarity CLEAR, Urine pH 6.0, Ur Specific Epworth >= 1.030, Urine Protein 100 H, Urine Ketones 15 H, Urine Nitrite NEG, Urine Bilirubin NEG, Urine Urobilinogen 0.2, Ur Leukocyte Esterase NEG, Ur Microscopic SEDIMENT EXAMINED, Urine RBC 5-10 H, Urine WBC 3-5 H, Ur Epithelial Cells FEW, Urine Bacteria RARE H, Hyaline Casts RARE H, Urine Mucus MOD H, Urine Hemoglobin MOD H, Urine Glucose NEG 09/24/16 1105: Lactic Acid > 24.0 H 09/24/16 1103: Anion Gap 40 H, Estimated GFR > 60, BUN/Creatinine Ratio 11.8, Glucose 194 H, Calcium 10.5 H, Total Bilirubin 0.8, AST 62 H, ALT 29, Alkaline Phosphatase 108, Creatine Kinase 216 H, Total Protein 8.9 H, Albumin 5.6 H, Globulin 3.3, Albumin/Globulin Ratio 1.7, CBC w Diff NO MAN DIFF REQ, RBC 4.90, MCV 101.2 H, MCH 33.1 H, RDW 14.0, MPV 8.4, Gran % 75.8 H, Lymphocytes % 19.3 L, Monocytes % 4.5, Eosinophils % 0.1, Basophils % 0.3, Absolute Granulocytes 9.3 H, Absolute Lymphocytes 2.4, Absolute Monocytes 0.6, Absolute Eosinophils 0, Absolute Basophils 0, PUBS MCHC 32.7 L, Carbamazepine 5.8, Serum Alcohol < 10.0 Microbiology 09/24 1129 URINE ROUT: Urine Culture - RECD Assessment/Plan Assessment: Assessmant: Mr. Reese Levine is 40 years old gentleman with PMH of traumatic brain injury status post right-sided craniotomy for clot evacuation 15 years ago, TBI, anxiety, depression, mood disorder he presented to the ER today after an episode of seizure this morning, his siezure are either due to ETOH or TBI problems and plan: # seizure: * lDepacon 750 mg in NS Q 12 IV * Tegretol 200 mg BID PO when able to take oral meds * Carbamazepine level * ETHO level * Head Ct w/o contrast to R/O brain lesion as the cause of seizureand injury from falling * EEG #1 Seizures: * Could be structural due to TBI versus alcohol withdrawal seizures. * Admit to telemetry * Frequent neuro checks every 2 hours * Patient was evaluated by neurology in the ED who recommended loading the patient with valproate 1500 mg. * We'll continue sodium provider at 750 mg IV twice a day * Carbamazepine level 5.8. Continue home dose of 200 twice a day * Continue gabapentin 300mg 3 times a day * EEG ordered * We will check baseline troponin and EKG * Patient passed bedside swallow. Can start a diet. * Neurology consult appreciated #2 Alcohol abuse: -Start patient on CIWA protocol -IV banana bag, then transition to oral multivitamin thiamine and folate -Continue IV Ativan per CIWA and 1 mg every every when necessary -Psychiatric consult -Social work consult #3 Lactic acidosis : Anaerobic glycolysis and seizure -Received 3 liters fluid in the ED -Trend lactate levels -We will check a CPK #4 History of depression/anxiety, mood disorder -Continue home medications -Psychiatric consult #5 .Methadone abuser -Continue home dose of 150 mg methadone -Will reconfirmed the dose in a.m. 6.DVT prophylaxis subcutaneous Lovenox Full code As Ranked By This Provider Problem List: 1. Seizure 2. Anxiety 3. Lactic acidosis 4. Transaminitis 5. Elevated troponin 6. Cellulitis of umbilicus 7. Alcohol abuse Core Measures/Miscellaneous Acute Coronary Syndrome ACS Diagnosis: No Cerebrovascular Accident CVA/TIA Diagnosis: No Congestive Heart Failure CHF Diagnosis: No VTE (View Protocol) VTE Risk Factors: Smoking No Mech VTE prophylaxis d/t: No contraindications No VTE Pharm Prophylaxis d/t: VTE low risk VTE Diagnosis: No VTE Type: NONE VTE Confirmed by (Test): NONE Sepsis (View Protocol) Severe Sepsis Present: No BC x2: Yes Lactic Acid x2: Yes IV ABX Broad Spectrum: Yes Septic Shock Septic Shock Present: No Miscellaneous Documentation Attending Case Discussed With: CHIP HAZEL MD Primary Care Physician: JIMI SALDIVAR MD Patient sees these Specialists psychiatry Level of Patient Care: Telemetry RERE STRONG 09/24/16 1536: Resident Review Statement Resident Statement: examined this patient, discussed with rn international Other Findings: Patient is a 40-year-old male with past medical history of traumatic brain injury status post right-sided craniotomy for clot evacuation clot evacuation 15 years ago, TBI seizures ,anxiety, depression, mood disorder was brought to the ER today for an episode of convulsive seizure this morning. Patient is in the postictal state and occasionally goes into slumber during the interview. The patient's seizure was witnessed by his friend at home who brought him to the ED. Patient denies any chest pain, shortness of breath, nausea, vomiting, tongue bite, bowel and bladder incontinence during the episode. He did have loss of consciousness post the episode. He had another episode of witnessed convulsive seizure in the ER which was treated with 4 mg of Ativan and Versed 5 mg. He was discharged from [place] in June 2016 after being treated for seizures. During that time he had confusion, several episodes of seizures and was treated with Ativan drip, Keppra and gabapentin. He remained seizure free after that to this episode. The Keppra was changed to carbamazepine due to its psychiatric side effects as per his psychiatrist recommendations. He is currently on carbamazepine 200 twice a day, gabapentin 300 X 3 times a day which the patient states is for stabilization. He is being followed by Dr. Bustamante at [facility]. Patient is alcoholic and drinks few beers and whiskey everyday. He had one glass of whiskey yesterday evening. No history of DTs. He is also on methadone which is being supplied by [facility]. His dose was confirmed at last visit to be 150 mg. In the ED vitals temperature 97.4, tachycardic to 123, respiration 20, blood pressure 151/93, saturating 99% on 2 L nasal cannula.(Initially patient required nonrebreather during the seizures) Labs showed a white count of 12.2, MCV 101.2, normal chemistries, glucose 153, lactic acid more than 24, calcium 8.3 U tox was positive for methadone and cannabis. Serum alcohol level was less than 10. Previous EEG (07/07/2016) was abnormal due to suppression of normal cerebral rhythms probably due to Ativan drip. No focal /epileptiform abnormalities were found He received 4 mg Ativan, 10 mg Versed, 3 L normal saline boluses in the ED. Physical examination Gen.: Drowsy, goes off to sleep during the conversation HEENT: PERRLA, EOMI, small hematoma in the right temporal area. CVS: Tachycardic, S1 and S2 heard Chest: Lungs clear to auscultation Extremities: No edema Neurological: Power 5 x 5 in all extremities, reflexes intact, no focal neurological deficits, cranial is intact. Skin: Abrasions over the knee Plan: #1 Seizures: Could be structural due to TBI versus alcohol withdrawal seizures. -Admit to telemetry -Frequent neuro checks every 2 hours -Patient was evaluated by neurology in the ED who recommended loading the patient with valproate 1500 mg. -We'll continue sodium provider at 750 mg IV twice a day -Carbamazepine level 5.8. Continue home dose of 200 twice a day -Continue gabapentin 300mg 3 times a day -EEG ordered -We will check baseline troponin and EKG -Patient passed bedside swallow. Can start a diet. -Neurology consult appreciated #2 Alcohol abuse: Likely going to detox on -Start patient on CIWA protocol -IV banana bag, then transition to oral multivitamin thiamine and folate -Continue IV Ativan per CIWA and 1 mg every every when necessary -Has a sitter -Psychiatric consult -Social work consult #3 Lactic acidosis: Anaerobic glycolysis and seizure -Received 3 to fluid in the ED -Trend lactate levels -We will check a CPK #4 History of psychiatric illness depression/anxiety, mood disorder -Continue home medications -Psychiatric consult #5 .Methadone abuser -Continue home dose of 150 mg methadone -Will reconfirmed the dose in a.m. DVT prophylaxis subcutaneous Lovenox Full code Mild pain pathway CHIP HAZEL MD 09/24/16 2200: Attending MD Review Statement Attending Statement Attending MD Statement: examined this patient, discuss w/resident/PA/EXHIBIT DISPLAY REPRESENTATIVE, agreed w/resident/PA/EXHIBIT DISPLAY REPRESENTATIVE, reviewed EMR data (avail), reviewed images, amended to note Attending Assessment/Plan: The patient is a 40 yo male with h/o TBI (s/p right craniotomy and drainage for bleed 15 years ago), depression, mood disorder and seizure disorder who presented on the day of admission after several witnessed seizures at home and subsequent seizure in the ED. He was initially post-ictal. He received IV Lorazepam and Versed in the ED. He had also been drinking (admits to beer and whiskey) prior to admission and tox screen was positive for marijuana. He had a prior admission 07/07 and was discharged on Keppra/Gabapentin. He is followed at [facility] by neurology (Dr. Bustamante) and was changed from Keppra to Carbamazepine due to psychiatric side effect concern of Keppra. His Carbamazepine level was subtherapeutic. Compliance with medication is unclear. He was seen by Neurology (Dr. Wallace) in the ED and given IV Valproate. No further seizures were noted. He was alert at the time of my exam and denied any recent illness, fever, chills, dyspnea. Did admit chronic EtOH use. Physical Exam: VS:T 97.4-99, P 123-88, R 20, BP 151-93-134/81, PO 99-100% HEENT: eyes- PERRLA, EOMI elba- moist mucosa w/o lesions Neck: no adenopathy Chest: clear Cor: RRR, nl S1, S2 w/o murm Abd: BS+, soft, NT, - masses or HSM Ext: no edema Neuro: alert & oriented, non-focal exam Labs/Tests: as above Impression/Plan: #Seizure Disorder/Multiple Seizures- with several seizures prior to admission and 1 in ED. Responded to IV Ativan, Versed. CT head w/o acute changes. Subtherapeutic Carbamazepine level. Most likely cause is non-compliance with medication and alcohol use. Plan: Admit to medicine (on telemetry in case Dilantin needs to be given IV). Seizure precautions. Neuro Consult (done). EEG. Loaded with IV Valproate, continue IV Valproate and po Carbamazepine as per Neurology. Continue Gabapentin. #Alcohol Dependence/Abuse- patient admits to significant EtOH input. Plan: CIWA Protocol, Ativan, thiamine, MVI, folic acid as per protocol. Social service consult. #Lactic Acidosis- most likely secondary to seizure. Plan: IV hydration and follow-up lactate level. #H/O Substance Abuse/Opioids- on chronic Methadone therapy. Plan: Will verify dose with Methadone clinic and continue. #H/O Depression/Anxiety/Mood Disorder- on Buspar Plan; Psychiatric consultation.
--- NOTE | 2016-09-24 14:32 | NUR ---
HOUSESTAFF IN FOR EVAL
--- NOTE | 2016-09-24 15:00 | NUR ---
REPEAT LACTIC SENT
--- NOTE | 2016-09-24 15:20 | Admission Certification ---
Admission Certification Certification Statement - As attending physician, I certify that at the time of - admission, based on clinical presentation, severity of - symptoms, need for further diagnostic testing and - therapeutic interventions, and risk of adverse outcomes - without in-hospital treatment, in my clinical assessment, - this patient requires an acute hospital stay for a minimum - of two nights or longer. I have also considered psychsocial - factors such as support system, advanced age, financial - issues, cognitive issues, and failed out-patient treatments, - past re-admission history, safety of patient, and lack of - compliance as applicable. Specific rationale supporting this admission is: Patient presented with seizures requiring IV medication. EtOH intoxication/ abuse. H/O TBI. Needs neuro consult and admit to monitor for further seizures. CIWA/detox protocol.
[2016-09-24 15:25] VITALS: BP 122/68
--- NOTE | 2016-09-24 15:30 | NUR ---
REPORT HANDED OFF TO VALERIE GANNON.
--- NOTE | 2016-09-24 15:43 | PN- Student ---
Subjective Subjective: Source: Patient and old records. Patient was poor historian in and out of sleep but easily arousable. CC: Seizure yesterday HPI: Mr. 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 He presents to [place] ED today following a convulsive seizure with loss of consciousness this morning which was witnessed by his friend Cleopatra. He states that he had a headache before the episode but has not noticed any trend for aggrevatign activities. Following his seizure he was confused for a few minutes but denies chest pain, biting of tongue, shortness of breath, or bowel or bladder incontinence during the episode. Patient is unaware how long seizure lasted but stated his brother says they usually last 10-15 min. While in the ED pt had another seizure during initial evaluation. He states he is compliant with medication and sees Dr. Wallace as his neurologist and was last seen 1 month ago when he had his last seizure. Unclear if this is his current neurologist. He believes his condition is well controlled by his medication and states he has approx. 2-3 seizures per year. Currently he is complaining of lower back pain and neck stiffness. Patient denies any recent infection, fever, or chills. Patient is an alcoholic and drinks about 2-3 drinks per day. His last drink was a beer and a glass of whiskey last night. Past Medical Hx 1. Traumatic Brain injury and related seizures status post right side crainotomy. 2. Anxiety and Depression: Patient does not see psychiatrist. 3. Opiate Abuse: Patient is being seen at [facility] for methadone treatment. [facility] Patient says he is up to date on his vaccinations. Current Home Medications 1. Buspirone HCl 15 MG 1 tab POBID 2. Carbamazepine 200MG 1 tab POBID 3. Follic acid 1MG 1 tab PO daily 4. Gabapentin 300MG 1 CAP PO TID 5. Methadone 150MG 1 Tab PO daily 6. Levetiracetam 500MG POBID 7. Multivitamin 8. Thiamine HCl 50mg 1 tab PO daily No Known Allergies Social History Patient is currently not working and is on disability. He lives at home alone and his brother lives in attached duplex house. It is unclear whether or not his father lives with him or his brother. He has no recent travel. Patient drinks about 2-3 drinks daily and is trying to reduce. His last drink was a beer and a glass of whiskey yesterday. Patient smokes 1/1.5 packs per day for the last 10 years. ROS Constitutional: No fevers or chills. Respiratory: No SOB CV: No chest pain, no palpitations. GI: No nausea, vomiting, or diarrhea. Musculoskeletal: Neck and lower back pain. Objective Objective: ED Vitals T 97.4, Pulse 123, Resp 20, BP 151/93, O2 SAT 99% on 2L nasal cannula ED Labs WBC: 12.2, MCV 101.2, MCH 33.1 Glucose 153, Calcium 10.5, Lactic Acid 24 Urine protein 100, Urine Ketones 15, Urine RBC 5-10, Urine WBC 3-5 Toxicology: positive Methadone and Cannabis. Serum alcohol was less than 10. Physical Exam General: Mr. Alexander is and thin 40-year-old male currently laying in hospital bed in mild discomfort. He is drowsy and in and out of sleep during exam but easily arousable. Eyes: EOMI CV: Tachycardic. Normal S1S2. Lungs: Chest symmetrical. Clear to auscultation bilaterally. Abdomen: Normal active bowel sounds, no tenderness to palpation. Extremities: No edema. Skin: Bruises and abrasions on extremities. Neurological: Strength 5/5 in all extremities. Fine tremor when arms outstretched. No focal neurological deficits. Results Results: Laboratory Tests 09/24/16 1552: Creatine Kinase 586 H, Troponin I 0.06 09/24/16 1544: Lactic Acid Cancelled 09/24/16 1500: Lactic Acid 1.1 09/24/16 1237: Anion Gap 11, Estimated GFR > 60, BUN/Creatinine Ratio 15.6, Glucose 153 H, Calcium 8.3 L 09/24/16 1129: Urine Opiates Screen < 100.00, Methadone Screen > 735 H, Barbiturate Screen < 60, Ur Phencyclidine Scrn 7.00, Amphetamines Screen < 100, U Benzodiazepines Scrn < 85, Urine Cocaine Screen < 50, Urine Cannabis Screen 79.10 H, Urinalysis LIGHT H, Urine Color YEL, Urine Clarity CLEAR, Urine pH 6.0, Ur Specific [place] >= 1.030, Urine Protein 100 H, Urine Ketones 15 H, Urine Nitrite NEG, Urine Bilirubin NEG, Urine Urobilinogen 0.2, Ur Leukocyte Esterase NEG, Ur Microscopic SEDIMENT EXAMINED, Urine RBC 5-10 H, Urine WBC 3-5 H, Ur Epithelial Cells FEW, Urine Bacteria RARE H, Hyaline Casts RARE H, Urine Mucus MOD H, Urine Hemoglobin MOD H, Urine Glucose NEG 09/24/16 1105: Lactic Acid > 24.0 H 09/24/16 1103: Anion Gap 40 H, Estimated GFR > 60, BUN/Creatinine Ratio 11.8, Glucose 194 H, Calcium 10.5 H, Total Bilirubin 0.8, AST 62 H, ALT 29, Alkaline Phosphatase 108, Creatine Kinase 216 H, Total Protein 8.9 H, Albumin 5.6 H, Globulin 3.3, Albumin/Globulin Ratio 1.7, CBC w Diff NO MAN DIFF REQ, RBC 4.90, MCV 101.2 H, MCH 33.1 H, RDW 14.0, MPV 8.4, Gran % 75.8 H, Lymphocytes % 19.3 L, Monocytes % 4.5, Eosinophils % 0.1, Basophils % 0.3, Absolute Granulocytes 9.3 H, Absolute Lymphocytes 2.4, Absolute Monocytes 0.6, Absolute Eosinophils 0, Absolute Basophils 0, PUBS MCHC 32.7 L, Carbamazepine 5.8, Serum Alcohol < 10.0 Microbiology 09/24 1129 URINE ROUT: Urine Culture - RECD Assessment/Plan Assessment: Mr. Alexander is a 40-year-old male with a PMH significant for TBI status post right sided crainotomy, seizures, anxiety, and depression presented following a convulsive seizure episode. On physical exam he was drowsy but easily arousable. No focal neurological deficts noted. My differential includes seizure due to medication non-compliance and alcohol withdrawl. Problem List 1. Seizures 2. Lactic Acidosis 3. Alcohol Abuse 4. History of Anxiety and Depression 5. Opiate Abuse Plan: 1. Seizures * Admit to telemetry. * Frequent Neurology checks. * As recommended by Neuro Evaluation. -continue carbamazepine 200mg BID. -load IV Valproate 1500 mg now and continue 750mg IV twice a day. -EEG * Continue Gabapentin 500mg three times per day. * Patient Can start a diet. Passed bedside swallow test. 2. Lactic Acidosis * Recieved 3L fluid in ED. * Will follow lactic acid levels. 3. Alcohol Abuse: Patient likely to detox * Currently has sitter. * Start CIWA protocol. * IV Banana bag then traisition to oral multivitamin, thiamine, and folate. * Psychiatry consult. * Social work consult. 4. History of Anxiety and Depression * Continue home medications. * Psychiatry consult. 5. Opiate Abuse * Continue current home dose of 150mg Methadone. * Confirm dose with rehabilitation center in AM.
--- NOTE | 2016-09-24 16:08 | NUR ---
VSS. NO S/S OF SEIZURE ACTIVITY. PER NEUROLOGY, EEG WILL HAPPEN TOMORROW MORINING AT THE EARLIEST, POSSIBLY NOT UNTIL TOMORROW AFTERNOON.. MARIA C Boogie ALSO AWARE
--- NOTE | 2016-09-24 16:24 | NUR ---
PT STATES HE TOOK HIS 150 MG METHADONE THIS AM, IS NOT DUE UNTIL TOMORROW AM
--- NOTE | 2016-09-24 17:00 | NUR ---
VALPROATE INFUSED. MULTI VIT VIALS RECEIVED FROM PHARMACY. NO S/S OF SEIZURE ACTIVITY BANANA BAG INFUSING AT 150 ML/HR ASORDERED
[2016-09-24 17:06] VITALS: BP 134/81
--- NOTE | 2016-09-24 17:29 | NUR ---
REPORT GIVEN TO SAGRARIO PADILLA
--- NOTE | 2016-09-24 17:44 | NUR ---
BRITT BAG EMPTIED OF 1350 CC'S URINE. HOUSE STAFF PAGED R/T DISCONTINUING SITTER ORDER
--- NOTE | 2016-09-24 18:06 | NUR ---
PER DR JERNIGAN, SITTER ORDERS WILL BE DC'D
--- NOTE | 2016-09-24 18:19 | NUR ---
PT MEDICATED WITH 325 MG TYLENOL FOR TEMP 100. NO TREMORS NOTED. MEDICATED WITH 2 MG ATIVAN IV ORDERED
--- NOTE | 2016-09-24 18:23 | NUR ---
NEW SITTER ORDER PLACED BY DR HAZEL. PER NURSING SUPER, ED SITTER WILL GO UP WITH PT
[2016-09-24 19:20] VITALS: BP 140/80
--- NOTE | 2016-09-24 20:00 | NUR ---
NURSING NOTE; PT ADMITTED FROM ER. A+OX3. CALM AND COOPERATIVE. 1:[address] VSS[address] SEIZURE PRECAUTIONS IN PLACE.
[2016-09-24 23:18] VITALS: BP 120/60
[2016-09-25] VITALS: BP 120/60
[2016-09-25 05:35] VITALS: BP 116/72
--- NOTE | 2016-09-25 06:55 | PN- Housestaff ---
See Addendum Subjective Follow-up For: seizure Alcohol abuse: Complaints: no complaints Tele-Events Since Last Visit: SNR 74- Subjective: I have personally seen and examined REESE ALEXANDER this morning at bed side , he looks more alert and oriented than yesteday, he was sitting comfortable in no acute distress , breathing room air Review of Systems Constitutional: Denies: no symptoms. EENTM: Denies: no symptoms. Cardiovascular: Denies: no symptoms. Respiratory: Denies: no symptoms. Gastrointestinal: Denies: no symptoms. Genitourinary: Denies: no symptoms. Objective Last 24 Hrs of Vital Signs/I&O Vital Signs Date Time Temp Pulse Resp B/P B/P Pulse O2 O2 Flow FiO2 Mean Ox Delivery Rate 09/25 0600 78 07/ 0535 98.2 83 20 116/72 98 07/06 0400 86 07/06 0200 76 07/06 0000 69 18 120/60 07/05 2318 98.1 71 16 120/60 97 07/05 2200 72 07/05 2000 78 07/05 1920 98.8 89 20 140/80 97 Room Air 07/05 1915 98.8 07/05 1819 100.0 07/05 1817 100.0 88 18 147/93 99 Room Air 07/05 1706 99.0 88 20 134/81 07/05 1706 99.0 88 20 134/81 99 Room Air 07/05 1525 98.9 87 20 122/68 07/05 1525 98.9 87 20 122/68 100 Nasal 2.0L Cannula 07/05 1504 94 20 138/77 100 Room Air 07/05 1432 98.8 94 20 116/71 98 Nasal 2.0L Cannula 07/05 1340 87 20 137/73 100 Nasal 2.0L Cannula 07/05 1314 92 20 126/73 99 Nasal 2.0L Cannula 07/05 1237 97.7 100 20 116/72 99 Nasal 2.0L Cannula 07/05 1224 96 20 113/64 97 Nasal 2.0L Cannula 07/05 1153 111 20 125/79 100 Non 100% ReBreather 07/05 1142 99 Non 100% ReBreather 07/05 1120 97.4 123 20 151/93 100 Non 100% ReBreather Intake & Output 07/06 1600 07/06 0800 07/06 0000 Intake Total 1470 515 Output Total 1000 2250 Balance 470 -1735 Intake, IV 750 115 Intake, Oral 720 400 Output, Urine 1000 2250 Patient 170 lb Weight Weight Reported by Patient Measurement Method Physical Exam General Appearance: Alert, Oriented X3, Cooperative, No Acute Distress Skin: No Rashes, No Breakdown, No Significant Lesion Skin Temp/Moisture Exam: Warm/Dry HEENT: Atraumatic, PERRLA, EOMI, Mucous Membr. moist/pink Neck: Supple, No JVD, +2 Carotid Pulse wo Bruit Cardiovascular: Regular Rate, Normal S1, Normal S2, No Murmurs Lungs: Clear to Auscultation, Normal Air Movement Abdomen: Normal Bowel Sounds, Soft, No Tenderness Neurological: Normal Speech, Strength at 5/5 X4 Ext, Normal Tone, Sensation Intact, Cranial Nerves 3-12 NL Extremities: No Cyanosis, No Edema Current Medications: Current Medications Sig/Libertad Start time Last Medication Dose Route Stop Time Status Admin Acetaminophen 0 .STK-MED ONE 09/24 1825 DC PO Acetaminophen 325 MG Q6 PRN 09/24 1415 AC 09/24 PO 1819 Buspirone HCl 15 MG BID 09/24 220 AC 09/24 PO 2226 Carbamazepine 200 MG BID 09/24 220 AC 09/24 PO 2227 Cyanocobalamin/ 1 BAG DAILY 09/24 1537 AC 09/24 Thiamine/Pyridoxine IV 09/26 1759 1659 Sodium Chloride 1,000 ML Enoxaparin Sodium 0 .STK-MED ONE 09/24 1509 DC SC Enoxaparin Sodium 40 MG DAILY 09/24 1413 09/24 SC 1506 Gabapentin 300 MG TID PRN 09/24 1600 AC PO Lorazepam 0 .STK-MED ONE 09/24 1817 DC .ROUTE Lorazepam 2 MG Q6 09/24 1800 AC 09/25 IV 0529 Lorazepam 1 MG Q1P PRN 09/24 1545 AC IV Lorazepam 0 .STK-MED ONE 09/24 1117 DC .ROUTE Lorazepam 2 MG ONE ONE 09/24 1115 DC 09/24 IV 09/24 1116 1121 Lorazepam 0 .STK-MED ONE 09/24 1102 DC .ROUTE Lorazepam 2 MG ONE ONE 09/24 1100 DC 09/24 IV 09/24 1101 1121 Methadone HCl 0 .STK-MED ONE 09/24 1624 DC PO Methadone HCl 150 MG DAILY 09/24 1542 AC PO Midazolam HCl 5 MG ONCE ONE 09/24 1215 DC 07/ IV 09/24 1216 1208 Midazolam HCl 5 MG ONCE ONE 09/24 1115 DC 07/ IV 09/24 1116 1121 Oxycodone HCl 5 MG Q6 PRN 09/24 1415 AC PO Oxycodone/ 2 TAB Q6 PRN 09/24 1415 AC Acetaminophen PO Sodium Chloride 1,000 ML BOLUS ONE 09/24 1200 DC 07/ IV 09/24 1259 1240 Sodium Chloride 1,000 ML BOLUS ONE 09/24 1200 DC 07 IV 09/24 1259 1153 Sodium Chloride 1,000 ML BOLUS ONE 09/24 1145 DC 07/ IV 09/24 1244 1148 Thiamine HCl 0 .STK-MED ONE 09/24 1647 DC .ROUTE Valproate Sodium 750 MG Q12 09/24 2200 AC 09/24 Sodium Chloride 100 ML IV 2226 Valproate Sodium 1,500 MG ONCE ONE 09/24 1330 DC 07 Sodium Chloride 100 ML IV 07/ 1509 1530 Valproate Sodium 1,000 MG ONCE ONE 09/24 1315 DC Sodium Chloride 100 ML IV 09/24 1414 Last 24 Hrs of Lab/Jon Results Last 24 Hrs of Labs/Mics: Laboratory Tests 09/25/16 0650: Anion Gap 13, Estimated GFR > 60, BUN/Creatinine Ratio 13.0, CBC w Diff Pending, WBC Pending, RBC Pending, Hgb Pending, Hct Pending, MCV Pending, MCH Pending, RDW Pending, Plt Count Pending, MPV Pending, Gran % Pending, Lymphocytes % Pending, Monocytes % Pending, Eosinophils % Pending, Basophils % Pending, Absolute Granulocytes Pending, Absolute Lymphocytes Pending, Absolute Monocytes Pending, Absolute Eosinophils Pending, Absolute Basophils Pending, PUBS MCHC Pending 09/24/16 1552: Creatine Kinase 586 H, Troponin I 0.06 09/24/16 1544: Lactic Acid Cancelled 09/24/16 1500: Lactic Acid 1.1 09/24/16 1237: Anion Gap 11, Estimated GFR > 60, BUN/Creatinine Ratio 15.6, Glucose 153 H, Calcium 8.3 L 09/24/16 1129: Urine Opiates Screen < 100.00, Methadone Screen > 735 H, Barbiturate Screen < 60, Ur Phencyclidine Scrn 7.00, Amphetamines Screen < 100, U Benzodiazepines Scrn < 85, Urine Cocaine Screen < 50, Urine Cannabis Screen 79.10 H, Urinalysis LIGHT H, Urine Color YEL, Urine Clarity CLEAR, Urine pH 6.0, Ur Specific [place] >= 1.030, Urine Protein 100 H, Urine Ketones 15 H, Urine Nitrite NEG, Urine Bilirubin NEG, Urine Urobilinogen 0.2, Ur Leukocyte Esterase NEG, Ur Microscopic SEDIMENT EXAMINED, Urine RBC 5-10 H, Urine WBC 3-5 H, Ur Epithelial Cells FEW, Urine Bacteria RARE H, Hyaline Casts RARE H, Urine Mucus MOD H, Urine Hemoglobin MOD H, Urine Glucose NEG 09/24/16 1105: Lactic Acid > 24.0 H 09/24/16 1103: Anion Gap 40 H, Estimated GFR > 60, BUN/Creatinine Ratio 11.8, Glucose 194 H, Calcium 10.5 H, Total Bilirubin 0.8, AST 62 H, ALT 29, Alkaline Phosphatase 108, Creatine Kinase 216 H, Total Protein 8.9 H, Albumin 5.6 H, Globulin 3.3, Albumin/Globulin Ratio 1.7, CBC w Diff NO MAN DIFF REQ, RBC 4.90, MCV 101.2 H, MCH 33.1 H, RDW 14.0, MPV 8.4, Gran % 75.8 H, Lymphocytes % 19.3 L, Monocytes % 4.5, Eosinophils % 0.1, Basophils % 0.3, Absolute Granulocytes 9.3 H, Absolute Lymphocytes 2.4, Absolute Monocytes 0.6, Absolute Eosinophils 0, Absolute Basophils 0, PUBS MCHC 32.7 L, Carbamazepine 5.8, Serum Alcohol < 10.0 Microbiology 09/24 1128 URINE ROUT: Urine Culture - RECD Orders Miscellaneous Findings: EEG: Abnormal due to craniotomy effect with slowing over the right hemisphere, prominent beta indicates benzodiazepine effect. Assessment/Plan Assessment: Mr. Reese Alexander is 40 years old gentleman with PMH of traumatic brain injury status post right-sided craniotomy for clot evacuation 15 years ago, TBI, anxiety, depression, mood disorder he presented to the ER yesterday after an episode of seizure, his siezure are either due to ETOH or TBI, CT to rule out any possible brain pathology underlying his seizure and also to r/o brain lesion due to falling down to the ground during the episode cmae back negative, EEG still pending problems and plan: #1 Seizures: * Could be structural due to TBI versus alcohol withdrawal seizures, he was siezure free for the past 24 hours. * EEG today was Abnormal due to craniotomy effect with slowing over the right hemisphere, prominent beta indicates benzodiazepine effect * increase tegretol to 300 bid * DC valproate as the patient developed thrombocytopenia * DC trileptal as per neurology recomm #2 Alcohol abuse: * Start patient on CIWA protocol * oral multivitamin thiamine and folate * Continue IV Ativan per CIWA and 1 mg every every when necessary #3 Lactic acidosis : Anaerobic glycolysis and seizure improved lactic acid on 09/24/16 3 pm was 1.1 #4 Increased CPK might be due to seizure patient recieved 3 L of IV NS yesterday #4 History of depression/anxiety, mood disorder -Continue home Busco -If patient is agreeable to intensive outpatient aftercare would recommend IOP at [place] [facility] he receives his methadone or at [facility] where he would be allowed to attend on methadone maintenance treatment. as per psychiatry recomm #5 .Methadone abuser -Continue home dose of 150 mg methadone -Dose of Methadone of 150 mg/ day was confirmed with [facility] 6.DVT prophylaxis subcutaneous Lovenox Full code Problem List: 1. Elevated troponin 2. Seizure 3. Anxiety 4. Alcohol abuse Pain Ratin Pain Location: N/A Pain Goal: Remain pain free Pain Plan: PERCOSET: 2 TAB q6 prn TYLENOL 325 po q6 PRN Tomorrow's Labs & Rationales: pt will be discharged DVT/Prophylaxis: pharmacological
--- NOTE | 2016-09-25 06:55 | Discharge Summary ---
See Addendum Visit Information Visit Dates Admission Date: 09/24/16 Discharge Date: 09/25/16 Hospital Course Course Attending Physician: ILIR MARQUEZ,CHIP Primary Care Physician: JIMI SALDIVAR MD Hospital Course: Mr. Derick Alexander is 40 years old gentleman with PMH of traumatic brain injury status post right-sided craniotomy for clot evacuation 15 years ago, TBI, anxiety, depression, mood disorder he presented to [facility] on 09/25/16 after an episode of seizure, his siezure are either due to ETOH or TBI, CT was normal which ruled out any possible brain pathology underlying his seizure and also r/o brain lesion due to falling down to the ground during the episode cmae back negative, EEG showed Abnormal pattern due to craniotomy effect with slowing over the right hemisphere, prominent beta indicates benzodiazepine effect : #1 Seizures: - Could be structural due to TBI versus alcohol withdrawal seizures, he was siezure free for the past 24 hours. -EEG was Abnormal due to craniotomy effect with slowing over the right hemisphere, prominent beta indicates benzodiazepine effect -patient was first started on valproate 1500 which was later reduced to 750 mg iv BID, and on the second day was DC as the patient developped thrombocytopenia( platlets count was 98,000 on 09/25/16 -tegretol dose was increased to 300 bid as per neurology recommendation #2 Alcohol abuse: on admission his blood ETOH was <10 on admission patient was started on banana bag, IV ativan drip and CIWA protocol , psychiatry consult was obtained which recommended If patient is agreeable to intensive outpatient aftercare at [facility] where he receives his methadone or at [facility] where he would be allowed to attend on methadone maintenance treatmen #3 Lactic acidosis on the day of admission was >24 at 09/24/16 then at 3 pm it dropped to 1.1most likely due to Anaerobic glycolysis andseizure #4 Increased CPK: on 09/24 16 it was 586 most likely due to seizure patient recieved 3 L of IV NS on the admission day #4 History of depression/anxiety, mood disorder was kept on Continue home Buspa and If patient is agreeable to intensive outpatient aftercare would recommend [facility] he receives his methadone or at [facility] where he would be allowed to attend on methadone maintenance treatment. as per psychiatry recomm #5 .Methadone abuser was kept on home dose of 150 mg methadone -Dose of Methadone of 150 mg/ [facility] 6.DVT prophylaxis subcutaneous Lovenox Full code Allergies: Coded Allergies: NO KNOWN ALLERGIES (02/20/15) Disposition Summary Disposition Principal Diagnosis: seizure Additional Diagnosis: Alcohol abuse Lactic acidosis depression/anxiety, mood disorder Methadone abuser Discharge Disposition: home or self care Discharge Instructions General Discharge Information Code Status: Full Code Patient's Diet: normal diet Patient's Activity: as tolerated Follow-Up Instructions/Appts: 1. PLEASE F/U WITH PCP IN 1 WEEK WITH A CBC CHECK UP ON 09/25/2016. 2. PLEASE F/U WITH NEUROLOGY WITHIN 1 WEEK OF DISCHARGE. 3. PLEASE STOP ALCOHOL CONSUMPTION IT CAN LOWER YOUR SEIZURE THRESHOLD. 4. PLEASE F/U WITH YOUR METHADONE CLINIC. Medications at Discharge Discharge Medications: Stop taking the following medications: Levetiracetam (Keppra) 500 MG TABLET ORAL TWICE DAILY Qty = 30 Carbamazepine (Tegretol XR) 200 MG TAB.ER.12H ORAL TWICE DAILY Qty = 29 Continue taking these medications: Buspirone HCl (Buspirone HCl) 15 MG TABLET 1 Tablet ORAL TWICE DAILY Qty = 60 Comments: Last Taken: 09/25/16 Time: 9 AM Methadone HCl (Methadone HCl) 5 MG TABLET 140 Milligram ORAL Every Day Comments: Last Taken: 09/25/16 Time: 9 AM Folic Acid (Folic Acid) 1 MG TABLET 1 Milligram ORAL DAILY Qty = 30 Comments: NOT GIVEN IN HOSPITAL Thiamine HCl (Vitamin B-1) 50 MG TABLET 50 Milligram ORAL DAILY Qty = 30 Comments: NOT GIVEN IN HOSPITAL Multivitamin (One Daily Multivitamin) 1 EACH TABLET 1 Tablet ORAL DAILY Qty = 30 Comments: BANANA BAG GIVEN Last Taken: 09/25/16 Time: 10:20 AM Gabapentin (Neurontin) 300 MG CAPSULE 1 Capsule ORAL THREE TIMES DAILY as needed for ANXIETY Qty = 30 Comments: NOT GIVEN IN HOSPITAL Start taking the following new medications: Carbamazepine (Carbamazepine) 300 MG CPMP.12HR 1 Capsule ORAL TWICE DAILY Qty = 60 No Refills Comments: Last Taken: 09/25/16 Time: 9 AM Copies To: JANNA MARQUEZ,JIMI Jackson MD Review Statement Documenting Attending: ANH MARQUEZ,TIFFANY Reyes
[2016-09-25 07:57] LABS: ABSOLUTE BASOPHIL COUNT 0 /CUMM (0.0-0.2); ABSOLUTE EOSINOPHIL COUNT 0 /CUMM (0.0-0.7); ABSOLUTE LYMPH COUNT 1.2 /CUMM (1.2-3.4); ABSOLUTE MONOCYTE COUNT 0.5 /CUMM (0.10-0.60); BASOPHIL % 0.2 % (0.0-2.0); EOSINOPHIL % 0.1 % (0-5); GRANULOCYTE % 70.3 % (42.2-75.2); MEAN CORPUSCULAR HGB 33.2 PG (27.0-31.0); MEAN CORPUSCULAR HGB CONC 34.3 G/DL (33.0-37.0); MEAN CORPUSCULAR VOLUME 96.7 FL (80.0-94.0); MEAN PLATELET VOLUME 8.6 FL (7.4-10.4); RBC DISTRIBUTION WIDTH 14.4 % (11.5-14.5); RED BLOOD CELL CT 4.09 /CUMM (4.70-6.10)
[2016-09-25 08:23] LABS: HEMATOCRIT 39.6 % (42-52); WHITE BLOOD CELL COUNT 5.8 /CUMM (4.8-10.8)
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
--- NOTE | 2016-09-25 09:07 | PN- Student ---
Subjective Subjective: Mr. Alexander states that he is feeling much better today and ready to go home. His lower back pain and neck stiffness have resolved. He denies any confusions, dizziness, fever, chills, or nausea currently. Today patient appears mentally clear and no longer confused. Patient was able to clarify some details from yesterdays history. He does live alone and his brother lives in attached house next to his. Patient sees Dr. Bustamante at [facility] for his all of his medication. 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 Patient is full code. Family Hx Mother - lung cancer - 67yrs old Father - lung cancer - 75yrs old 2 brothers healthy Objective Objective: Vitals T: 98.2, Pulse:83, Resp 20, BP 116/72, O2 Sat 98% General: Patient is more orientated then he was when evaluated yesterday. He is in no acute distress laying comfortably in his hospital bed. Patient is dressed in hospital gown and no longer using nasal cannula. HEENT: Eyes: EOMI, PERRLA. Oropharynx: Moist musoca. No lesions. Cardio: Normal rhythm. Normal S1S2 no murmurs, rubs, or gallops. Resp: Lungs clear to auscultation bilaterally posteriorly. Abdomen: Soft, non-tender. Vascular: No leg edema Neuro: Alert, relaxed and cooperative. -No focal deficits -Cranial nerves: CN I and II not tested. CN III-VII intact -Sensory: Light touch intact bilaterally -Motor: Strength 5/5 on extremities. Slight tremor in left arm when outstretched. Patient states this happens when he does not take his methadone dose CIWA at 0600 score 2 Labs Plt count: 98 L (was 202 yesterday) Hemoglobin 13.6 L Hematocrit: 39.6 L RBC 4.09 L MCV: 96.7 H MCH: 33.2 H Chemistry normal Lactic acid 1.1 Results Results: Laboratory Tests 09/25/16 0650: Anion Gap 13, Estimated GFR > 60, BUN/Creatinine Ratio 13.0, CBC w Diff NO MAN DIFF REQ, RBC 4.09 L, MCV 96.7 H, MCH 33.2 H, RDW 14.4, MPV 8.6, Gran % 70.3, Lymphocytes % 20.0 L, Monocytes % 9.4 H, Eosinophils % 0.1, Basophils % 0.2, Absolute Granulocytes 4.0, Absolute Lymphocytes 1.2, Absolute Monocytes 0.5, Absolute Eosinophils 0, Absolute Basophils 0, PUBS MCHC 34.3 09/24/16 1552: Creatine Kinase 586 H, Troponin I 0.06 09/24/16 1544: Lactic Acid Cancelled 09/24/16 1500: Lactic Acid 1.1 09/24/16 1237: Anion Gap 11, Estimated GFR > 60, BUN/Creatinine Ratio 15.6, Glucose 153 H, Calcium 8.3 L 09/24/16 1129: Urine Opiates Screen < 100.00, Methadone Screen > 735 H, Barbiturate Screen < 60, Ur Phencyclidine Scrn 7.00, Amphetamines Screen < 100, U Benzodiazepines Scrn < 85, Urine Cocaine Screen < 50, Urine Cannabis Screen 79.10 H, Urinalysis LIGHT H, Urine Color YEL, Urine Clarity CLEAR, Urine pH 6.0, Ur Specific Britton >= 1.030, Urine Protein 100 H, Urine Ketones 15 H, Urine Nitrite NEG, Urine Bilirubin NEG, Urine Urobilinogen 0.2, Ur Leukocyte Esterase NEG, Ur Microscopic SEDIMENT EXAMINED, Urine RBC 5-10 H, Urine WBC 3-5 H, Ur Epithelial Cells FEW, Urine Bacteria RARE H, Hyaline Casts RARE H, Urine Mucus MOD H, Urine Hemoglobin MOD H, Urine Glucose NEG 09/24/16 1105: Lactic Acid > 24.0 H 09/24/16 1103: Anion Gap 40 H, Estimated GFR > 60, BUN/Creatinine Ratio 11.8, Glucose 194 H, Calcium 10.5 H, Total Bilirubin 0.8, AST 62 H, ALT 29, Alkaline Phosphatase 108, Creatine Kinase 216 H, Total Protein 8.9 H, Albumin 5.6 H, Globulin 3.3, Albumin/Globulin Ratio 1.7, CBC w Diff NO MAN DIFF REQ, RBC 4.90, MCV 101.2 H, MCH 33.1 H, RDW 14.0, MPV 8.4, Gran % 75.8 H, Lymphocytes % 19.3 L, Monocytes % 4.5, Eosinophils % 0.1, Basophils % 0.3, Absolute Granulocytes 9.3 H, Absolute Lymphocytes 2.4, Absolute Monocytes 0.6, Absolute Eosinophils 0, Absolute Basophils 0, PUBS MCHC 32.7 L, Carbamazepine 5.8, Serum Alcohol < 10.0 Microbiology 09/24 1129 URINE ROUT: Urine Culture - RES Assessment/Plan Assessment: 40-year-old male with past medical history significant for traumatic brain injury status post right sided crainotomy, seizures, anxiety and depression presents today following 2 seizures yesterday with no current complaints. Today it is noted that his platelet count has decreased from 202 yesterday to 98 today. Problem List 1. Seizures 2. Lactic Acidosis 3. Alcohol Abuse 4. History of Anxiety and Depression 5. Opiate Abuse 6. Thrombocytopenia Plan: Plan: 1. Seizures * Valproate discontinued due to possible relation to thrombocytopenia. * As per neurology - Increase carbamazepine to 300mg BID. * Continue Gabapentin 300mg three times per day. 2. Lactic Acidosis --RESOLVED * Last Measurement on 09/24/14 at 15:00 was 1.1 3. Alcohol Abuse: Patient likely to detox * Consider discontinuing sitter. * Continue CIWA protocol. 4. History of Anxiety and Depression * Continue home medications as per psychiatry consult. 5. Opiate Abuse * Continue current home dose of 150mg Methadone. * Dose was confirmed with [facility] this morning. * Consider Intensive outpatient program for methadone treatment as per Psych. 6. Thrombocytopenia * May be due to Valproate. Medication discontinued.
[2016-09-25 09:35] LABS: PLATELET COUNT 98 /CUMM (130-400)
[2016-09-25 14:47] VITALS: BP 120/82
--- NOTE | 2016-09-25 15:19 | PN- Neurology ---
Subjective Subjective: Feels well today, wants to go home Says he fell asleep without taking Tegretol the night before admission Review of Systems: no headache Objective Vital Signs and I&Os Vital Signs Date Time Temp Pulse Resp B/P B/P Pulse O2 O2 Flow FiO2 Mean Ox Delivery Rate 09/25 1447 98.9 81 18 120/82 97 Room Air 07/ 0600 78 / 0535 98.2 83 20 116/72 98 /06 0400 86 /06 0200 76 07/06 0000 69 18 120/60 07/05 2318 98.1 71 16 120/60 97 /05 2200 72 07/05 2000 78 07/ 1920 98.8 89 20 140/80 97 Room Air 09/24 1915 98.8 09/24 1819 100.0 / 1817 100.0 88 18 147/93 99 Room Air / 1706 99.0 88 20 134/81 07/ 1706 99.0 88 20 134/81 99 Room Air / 1525 98.9 87 20 122/68 07/05 1525 98.9 87 20 122/68 100 Nasal 2.0L Cannula 09/24 1504 94 20 138/77 100 Room Air Intake & Output 09/25 1600 09/25 0800 / 0000 09/24 1600 09/24 0800 / 0000 Intake Total 0381 556 9098 Output Total 350 1000 2250 Balance -350 470 -1735 3000 Intake, IV 386 584 3611 Intake, Oral 720 400 Output, Urine 350 1000 2250 Patient 170 lb 145 lb Weight Weight Reported by Patient Measurement Method Physical Exam: Awake, alert, oriented, conversant. no nystagmus or ataxia of UE Current Medications: Current Medications Sig/Libertad Start time Last Medication Dose Route Stop Time Status Admin Acetaminophen 0 .STK-MED ONE 09/24 1825 DC PO Acetaminophen 325 MG Q6 PRN 09/24 1415 AC 09/24 PO 1819 Buspirone HCl 15 MG BID 09/24 2199 AC 09/25 PO 0852 Carbamazepine 200 MG BID 09/24 2199 AC 09/25 PO 0855 Cyanocobalamin/ 1 BAG DAILY 09/24 1537 AC 09/25 Thiamine/Pyridoxine IV 09/26 1759 1019 Sodium Chloride 1,000 ML Enoxaparin Sodium 0 .STK-MED ONE 09/24 1509 DC SC Enoxaparin Sodium 40 MG DAILY 09/24 1413 DC 09/25 SC 0856 Gabapentin 300 MG TID PRN 09/24 1600 AC PO Lorazepam 0 .STK-MED ONE 09/24 1817 DC .ROUTE Lorazepam 2 MG Q6 09/24 1800 AC 09/25 IV 1236 Lorazepam 1 MG Q1P PRN 09/24 1545 AC IV Methadone HCl 0 .STK-MED ONE 09/24 1624 DC PO Methadone HCl 150 MG DAILY 09/24 1542 AC 09/25 PO 0853 Oxcarbazepine 150 MG BID 09/25 2200 AC PO Oxycodone HCl 5 MG Q6 PRN 09/24 1415 AC PO Oxycodone/ 2 TAB Q6 PRN 09/24 1415 AC Acetaminophen PO Thiamine HCl 0 .STK-MED ONE 09/24 1647 DC .ROUTE Valproate Sodium 750 MG Q12 09/24 2200 DC 09/25 Sodium Chloride 100 ML IV 0847 Valproate Sodium 1,500 MG ONCE ONE 09/24 1330 DC 09/24 Sodium Chloride 100 ML IV 09/24 1509 1530 Results Last 24 Hours of Lab Results: Laboratory Tests 09/25 09/24 09/24 0650 1552 1544 Chemistry Sodium (137 - 145 mmol/L) 137 Potassium (3.5 - 5.1 mmol/L) 4.1 Chloride (98 - 107 mmol/L) 102 Carbon Dioxide (22 - 30 mmol/L) 22 Anion Gap (5 - 16) 13 BUN (9 - 20 mg/dL) 13 Creatinine (0.7 - 1.2 mg/dL) 1.0 Estimated GFR (>60 ml/min) > 60 BUN/Creatinine Ratio (7 - 25 %) 13.0 Lactic Acid Cancelled Creatine Kinase (55 - 170 U/L) 586 H Troponin I (<0.11 ng/ml) 0.06 Hematology CBC w Diff NO MAN DIFF REQ WBC (4.8 - 10.8 /CUMM) 5.8 RBC (4.70 - 6.10 /CUMM) 4.09 L Hgb (14.0 - 18.0 G/DL) 13.6 L Hct (42 - 52 %) 39.6 L MCV (80.0 - 94.0 FL) 96.7 H MCH (27.0 - 31.0 PG) 33.2 H RDW (11.5 - 14.5 %) 14.4 Plt Count (130 - 400 /CUMM) 98 L MPV (7.4 - 10.4 FL) 8.6 Gran % (42.2 - 75.2 %) 70.3 Lymphocytes % (20.5 - 51.1 %) 20.0 L Monocytes % (1.7 - 9.3 %) 9.4 H Eosinophils % (0 - 5 %) 0.1 Basophils % (0.0 - 2.0 %) 0.2 Absolute Granulocytes (1.4 - 6.5 /CUMM) 4.0 Absolute Lymphocytes (1.2 - 3.4 /CUMM) 1.2 Absolute Monocytes (0.10 - 0.60 /CUMM) 0.5 Absolute Eosinophils (0.0 - 0.7 /CUMM) 0 Absolute Basophils (0.0 - 0.2 /CUMM) 0 PUBS MCHC (33.0 - 37.0 G/DL) 34.3 Assessment/Plan Assessment: Breakthrough seizure despite tegretol with level of 5.8 on dose of 200mg BID and gabapentin 300 mg TID. Avoiding Keppra due to risk of psychiatric side effects. Acute thrombopenia - may be due to loading with VPA Plan: increase tegretol to 300 bid, d/c VPA and trileptal which was discussed earlier
--- NOTE | 2016-09-25 15:44 | Patient Discharge Instructions ---
Discharge Instructions General Discharge Information You were seen/treated for: SEIZURE Special Instructions: 1. PLEASE F/U WITH PCP IN 1 WEEK WITH A CBC CHECK UP ON 09/25/2016. 2. PLEASE F/U WITH NEUROLOGY WITHIN 1 WEEK OF DISCHARGE. 3. PLEASE STOP ALCOHOL CONSUMPTION IT CAN LOWER YOUR SEIZURE THRESHOLD. 4. PLEASE F/U WITH YOUR METHADONE CLINIC. Diet Continue normal diet: Yes Activity Full Activity/No Limits: Yes ( TOLERATED) Acute Coronary Syndrome Inclusion Criteria At DC or during hospital stay patient has or had the following: ACS DIAGNOSIS No Discharge Core Measures Meds if any: Prescribed or Continued at Discharge Meds if any: NOT Prescribed or Continued at Discharge Congestive Heart Failure Inclusion Criteria At DC or during hospital stay patient has or had the following: CHF DIAGNOSIS No Discharge Core Measures Meds if any: Prescribed or Continued at Discharge Meds if any: NOT Prescribed or Continued at Discharge Cerebrovascular accident Inclusion Criteria At DC or during hospital stay patient has or had the following: CVA/TIA Diagnosis No Discharge Core Measures Meds if any: Prescribed or Continued at Discharge Meds if any: NOT Prescribed or Continued at Discharge Venous thromboembolism Inclusion Criteria VTE Diagnosis No VTE Type NONE VTE Confirmed by (Test) NONE Discharge Core Measures - Per Current guidelines, there needs to be overlap - treatment for the first 5 days of Warfarin therapy. - If discharged on Warfarin prior to 5 days of - overlap therapy, the patient will need to be - assessed for post discharge needs including - *Post discharge parental anticoagulation - *Warfarin and/or parental anticoagulation education - *Follow up date to check INR post discharge At least 5 days overlap therapy as Inpatient No Meds if any: Prescribed or Continued at Discharge Note: Overlap Therapy is Warfarin and Anticoagulant Meds if any: NOT Prescribed or Continued at Discharge
[2016-09-25] MEDS ORDERED: CARBAMAZEPINE300 M1 PO (15:45)
--- NOTE | 2016-09-25 16:30 | ELECTROENCEPHALOGRAM REPORT ---
Electroencephalogram Report Electroencephalogram Results Date of service: 09/25/16 Attending MD: CHIP HAZEL MD Iron Pourer: Randa Jaramillo EEG Number: [id number] Test Utilizes: 10-20 system, 21 lead 18 channel digital recording Pertinent Hx/Physical/Neuro Findings/Clin Diagnosis: Seizures Inpatient Medications: Current Medications Sig/Libertad Start time Last Medication Dose Route Stop Time Status Admin Acetaminophen 0 .STK-MED ONE 09/24 1825 DC PO Acetaminophen 325 MG Q6 PRN 09/24 1415 AC 09/24 PO 1819 Buspirone HCl 15 MG BID 09/24 220 AC 09/25 PO 0852 Carbamazepine 300 MG BID 09/25 2200 AC PO Carbamazepine 200 MG BID 09/24 220 DC 09/25 PO 0855 Cyanocobalamin/ 1 BAG DAILY 09/24 1537 AC 09/25 Thiamine/Pyridoxine IV 09/26 1759 1019 Sodium Chloride 1,000 ML Enoxaparin Sodium 40 MG DAILY 09/24 1413 DC 09/25 SC 0856 Gabapentin 300 MG TID PRN 09/24 1600 AC PO Lorazepam 0 .STK-MED ONE 09/24 1817 DC .ROUTE Lorazepam 2 MG Q6 09/24 1800 AC 09/25 IV 1236 Lorazepam 1 MG Q1P PRN 09/24 1545 AC IV Methadone HCl 0 .STK-MED ONE 09/24 1624 DC PO Methadone HCl 150 MG DAILY 09/24 1542 AC 09/25 PO 0853 Oxcarbazepine 150 MG BID 09/25 2200 CAN PO Oxycodone HCl 5 MG Q6 PRN 09/24 1415 AC PO Oxycodone/ 2 TAB Q6 PRN 09/24 1415 AC Acetaminophen PO Thiamine HCl 0 .STK-MED ONE 09/24 1647 DC .ROUTE Valproate Sodium 750 MG Q12 09/24 2200 DC 09/25 Sodium Chloride 100 ML IV 0847 Interpretation: The background reveals high amplitude frontal beta at around 22 Hz, mildly irregular alpha over the left hemisphere and slower theta of somewhat higher amplitude on the right in the region of the prior craniotomy. No epileptiform discharges. Photic unremarkable. Hyperventilation deferred. Impression: Abnormal due to craniotomy effect with slowing over the right hemisphere, prominent beta indicates benzodiazepine effect.
--- NOTE | 2016-09-29 14:14 | NUR ---
late entry. sw received electronic consult from MD Macey, for ETOH. Chart reviewed and pt discussed with CARLOS Fletcher. Pt in tx at [facility] where he recieves his methadone . Pt not actively interested in further tx and is aware he can get increase tx there. Pt also aware he can go to [facility] with methadone if he wanted increase tx. Pt reporting he is only interested in current out pt level of care and if he wants more,he knows how and where to obtain it.
== END 2016-09-25 17:28 | DRG 53 ==
LOC: ERH 10:47 → ERHI 14:05 → 1NO 14:05 → ENRESERV 14:31 → ENTRNSPT 17:28 → 1NO 18:52 → CMPTRNSPT 09-25 07:37 → 1NO 09-25 09:44 → ENPENDDIS 09-25 17:05 → 1NO 09-25 17:28
PROVIDERS: Emergency Medicine; Student in an Organized Health Care Education/Training Program; ADMIT Internal Medicine
DX: G40.909 Epilepsy, unspecified, not intractable, without status epilepticus (principal); F11.20 Opioid dependence, uncomplicated; F10.20 Alcohol dependence, uncomplicated; E87.2 Acidosis; F32.9 Major depressive disorder, single episode, unspecified; F41.9 Anxiety disorder, unspecified; Z87.820 Personal history of traumatic brain injury; F43.21 Adjustment disorder with depressed mood; G89.29 Other chronic pain; D69.6 Thrombocytopenia, unspecified
CPT/HCPCS: 1NP; 80307; 81001; 82436; 87086; 93005; 93010; 95816; 96360; 96361; 96365; 96375; 96376; 99291; G0480; J1650; J3490